=== PATIENT | female | born 1955 | race Caucasian/White ===

== ENCOUNTER 2024-09-30 16:09 | Inpatient (IN) | payer MEDICARE, OTHER, SELFPAY ==
[2024-09-30] VITALS (12 sets, daily range): BP systolic 124–152; BP diastolic 48–97; BMI 30.1; BMI 29.7
--- NOTE | 2024-09-30 11:38 | ED.GENMED ---
History of Present Illness
<Carolina Abdul PA-C - Last Filed: 09/30/24 15:45>
General
Chief Complaint: Skin Problem
Source: patient
Exam Limitations: none
Time Seen by Provider: 09/30/24 10:58
History of Present Illness
History of Present Illness:
68yoF with a history of type 1 diabetes and hypertension presenting for evaluation of a right toe wound. She started to feel sick about 2 weeks ago with cold symptoms. She subsequently developed pain in her right calf last week. Six days ago, she
noticed discoloration to her right third toe. She denies any preceding wounds to the toe. She went to an endocrinology appointment this morning and her toe was noted to be gangrenous and she was sent to the ED for evaluation. Patient denies any
fevers or chills.
Past History
<Carolina Abdul PA-C - Last Filed: 09/30/24 15:45>
Past History
ED Past Medical History: IDDM
Phy Exam
<Carolina Abdul PA-C - Last Filed: 09/30/24 15:45>
General Physical Exam
General Presentation: well appearing and no apparent distress
General age: appears stated age
General Skin: warm and dry
General Habitus: normal
General Mental: alert
ENT Exam
ENT Exam: normocephalic
Neurological Exam
Neurological Exam: alert
Meliton Coma Scale
Eye Opening: Spontaneous
Verbal Response: Oriented
Motor Response: Obeys Commands
GCS Total Score: 15
Skin Exam
Skin Exam: warm/dry and other (R foot: Dry gangrene noted to 3rd toe. Purulence noted to proximal digit and malodor. No crepitus or pain out of proportion. There is edema noted throughout dorsum of the foot as well as 2-3+ pitting edema to R calf.
No palpable pulse in R foot although DP doppler signal present.)
Psychiatric Exam
Psychiatric Exam: normal mood/affect
Sepsis
<Carolina Abdul PA-C - Last Filed: 09/30/24 15:45>
Sepsis Screening
Sepsis Assessment: Sepsis
Sepsis Screen
Sepsis Screen: Sepsis
Date: 09/30/24
Time: 15:37
Course
<Carolina Abdul PA-C - Last Filed: 09/30/24 15:45>
Orders/Labs/Results
Orders:
Orders
09/30/24 11:18
CR Foot - Right Min 3 Views Urgent
Comment:
Reason For Exam: wound
09/30/24 11:20
Cefepime HCl [Maxipime] 2,000 mg IV NOW STA
09/30/24 11:23
Vascular Surgery Consult Urgent
Consulting Provider: Edgar Garcia III
Was physician already notified: Yes
US Periph Art LOWER Ext w LESLIE Urgent
Reason For Exam: R necrotic foot wound
Venous Doppler Lwr Ext Rt [US Periph Venous LOWER Ext RT] Urgent
Comment:
Reason For Exam: R calf swelling
09/30/24 11:43
Complete Blood Count/With Diff Urgent
Comprehensive Metabolic Panel Urgent
Lactate Level [Lactic Acid] Urgent
09/30/24 11:45
Wound Culture [Wound/Abscess/Other Culture] Urgent
SYDNIE Source: Toe
Specimen Description:
Date Specimen was Collected: 09/30/24
Time Specimen was Collected: 11:34
09/30/24 11:54
Vancomycin [Vancocin] 2,000 mg 0.9% Sodium Chloride 500 ml [Nss] 500 ml IV NOW
09/30/24 14:30
Admit/Transfer Patient As Directed
Co-Sign Provider:
Level of Care: Inpatient admission
Assign to:: Medical/Surgical
Physician / Group: Hospitalist
Diagnosis: Gangrene of right foot 3rd digit
Reason for Hospitalization: Gangrene, peripheral arterial disease; requires antibiotics, vascular eval, toe
amputation
Expected length of stay greater than two midnights?: Yes
ELOS- Estimated Length of Stay in days: 7
I certify the patient meets the requirements for IP care: Yes
PRN Pain Medication Management As Directed
May give lesser potent ordered pain med per pt: Yes
preference::
Protocol:: Medication orders for pain may be administered in a
manner that supports deferring to patient preference
when the pt is:
- Requesting an ordered lesser potent pain medication.
Least to most potent pain medications are defined
as: acetaminophen < NSAID < tramadol < opioids
(morphine, oxycodone, hydromorphone).
- Requesting a lesser dose of the same medication IF
ORDERED.
- Requesting a less intrusive route of administration
if both routes are prescribed by the provider (PO <
IV).
09/30/24 14:34
Code Status As Directed
Resuscitation Status: Full Code
Abnormal Lab Results
09/30/24
11:43
WBC 11.2 H 10^3/uL
(4.8-10.8)
RBC 3.57 L 10^6/uL
(4.20-5.40)
Hgb 10.5 L g/dL
(12.0-16.0)
Hct 32.1 L %
(37.0-47.0)
MCHC 32.7 L g/dL
(33.0-37.0)
Abs Immat Gran (auto) 0.1 H 10^3/uL
(0-0.05)
Absolute Neuts (auto) 8.8 H 10^3/uL
(1.4-6.5)
Absolute Monos (auto) 0.8 H 10^3/uL
(0.1-0.6)
Neutrophils % 78.2 H %
(42.2-75.2)
Lymphocytes % 13.2 L %
(20.5-51.1)
Carbon Dioxide 20 L mmol/L
(22-30)
BUN 29 H mg/dl
(7-17)
Creatinine 1.1 H mg/dL
(0.6-1.0)
Glucose 222 H mg/dl
(70-99)
09/30/24 11:43
09/30/24 11:43
Vital Signs
Initial and Last Documented VS:
Initial Vital Signs
Pulse Resp Pulse Ox
102 20 100
09/30/24 10:49 09/30/24 10:49 09/30/24 10:49
Last Documented Vital Signs
Temp Pulse Resp BP Pulse Ox
97.1 F 107 13 143/56 100
09/30/24 11:25 09/30/24 15:02 09/30/24 15:02 09/30/24 15:01 09/30/24 14:30
<Bailey Wilson, DO - Last Filed: 09/30/24 13:31>
Orders/Labs/Results
Orders:
Orders
09/30/24 11:18
CR Foot - Right Min 3 Views Urgent
Comment:
Reason For Exam: wound
09/30/24 11:20
Cefepime HCl [Maxipime] 2,000 mg IV NOW STA
09/30/24 11:23
Vascular Surgery Consult Urgent
Consulting Provider: Edgar Garcia III
Was physician already notified: Yes
US Periph Art LOWER Ext w LESLIE Urgent
Reason For Exam: R necrotic foot wound
Venous Doppler Lwr Ext Rt [US Periph Venous LOWER Ext RT] Urgent
Comment:
Reason For Exam: R calf swelling
09/30/24 11:43
Complete Blood Count/With Diff Urgent
Comprehensive Metabolic Panel Urgent
Lactate Level [Lactic Acid] Urgent
09/30/24 11:45
Wound Culture [Wound/Abscess/Other Culture] Urgent
SYDNIE Source: Toe
Specimen Description:
Date Specimen was Collected: 09/30/24
Time Specimen was Collected: 11:34
09/30/24 11:54
Vancomycin [Vancocin] 2,000 mg 0.9% Sodium Chloride 500 ml [Nss] 500 ml IV NOW
09/30/24 14:30
Admit/Transfer Patient As Directed
Co-Sign Provider:
Level of Care: Inpatient admission
Assign to:: Medical/Surgical
Physician / Group: Hospitalist
Diagnosis: Gangrene of right foot 3rd digit
Reason for Hospitalization: Gangrene, peripheral arterial disease; requires antibiotics, vascular eval, toe
amputation
Expected length of stay greater than two midnights?: Yes
ELOS- Estimated Length of Stay in days: 7
I certify the patient meets the requirements for IP care: Yes
PRN Pain Medication Management As Directed
May give lesser potent ordered pain med per pt: Yes
preference::
Protocol:: Medication orders for pain may be administered in a
manner that supports deferring to patient preference
when the pt is:
- Requesting an ordered lesser potent pain medication.
Least to most potent pain medications are defined
as: acetaminophen < NSAID < tramadol < opioids
(morphine, oxycodone, hydromorphone).
- Requesting a lesser dose of the same medication IF
ORDERED.
- Requesting a less intrusive route of administration
if both routes are prescribed by the provider (PO <
IV).
09/30/24 14:34
Code Status As Directed
Resuscitation Status: Full Code
Abnormal Lab Results
09/30/24
11:43
WBC 11.2 H 10^3/uL
(4.8-10.8)
RBC 3.57 L 10^6/uL
(4.20-5.40)
Hgb 10.5 L g/dL
(12.0-16.0)
Hct 32.1 L %
(37.0-47.0)
MCHC 32.7 L g/dL
(33.0-37.0)
Abs Immat Gran (auto) 0.1 H 10^3/uL
(0-0.05)
Absolute Neuts (auto) 8.8 H 10^3/uL
(1.4-6.5)
Absolute Monos (auto) 0.8 H 10^3/uL
(0.1-0.6)
Neutrophils % 78.2 H %
(42.2-75.2)
Lymphocytes % 13.2 L %
(20.5-51.1)
Carbon Dioxide 20 L mmol/L
(22-30)
BUN 29 H mg/dl
(7-17)
Creatinine 1.1 H mg/dL
(0.6-1.0)
Glucose 222 H mg/dl
(70-99)
09/30/24 11:43
09/30/24 11:43
Vital Signs
Initial and Last Documented VS:
Initial Vital Signs
Pulse Resp Pulse Ox
102 20 100
09/30/24 10:49 09/30/24 10:49 09/30/24 10:49
Last Documented Vital Signs
Temp Pulse Resp BP Pulse Ox
97.1 F 107 13 143/56 100
09/30/24 11:25 09/30/24 15:02 09/30/24 15:02 09/30/24 15:01 09/30/24 14:30
Gabriellelt;Carolina Abdul PA-C - Last Filed: 09/30/24 15:45>
MDM/Problems Addressed
Differential Diagnosis Includes:
68yoF with hx of T1DM sent in by endocrinology for a gangrenous toe. Reports color change x 6 days. Denies f/c. HR 102 in triage. Temp 97.1 and BP stable. She is non-toxic appearing. Third toe is noted to have dry gangrene, purulence proximally, and
malodor. There is edema to the R lower extremity. Doppler DP signal present. Differential diagnosis includes but is not limited to: diabetic foot wound, peripheral arterial disease, cellulitis, NSTI, sepsis
Initial ED plan: Check CBC, CMP, lactate, wound culture, R foot x-rays. Case discussed with vascular surgeon, Dr. Garcia. Will order both arterial and venous duplex of RLE.
<Carolina Abdul PA-C - Last Filed: 09/30/24 15:45>
*Critical Care Note
Total Time (30-74mins, 75-104mins- exclusive of procedures): Not Applicable
<Carolina Abdul PA-C - Last Filed: 09/30/24 15:45>
Update Note
Update Note:
Labs reveal a mild leukocytosis with a white count of 11.2. Lactate within normal limits. Glucose 222. Venous duplex negative for DVT. Arterial duplex shows severely reduced TBI at 0.2 in the right lower extremity. Vascular surgery planning on
arteriogram during this hospitalization. No soft tissue gas or evidence of osteomyelitis seen on x-ray. IV cefepime and vancomycin ordered. Patient admitted for further management.
ED Attending Note
<Carolina Abdul PA-C - Last Filed: 09/30/24 15:45>
-
Portions of this chart may have been created with voice recognition software.� Occasional wrong word or��sound alike� substitutions may have occurred due to the inherent limitations of voice recognition software.
<Bailey Wilson DO - Last Filed: 09/30/24 13:31>
ED Attending Note
Patient seen and examined by attending physician: Yes
I performed the substantive portion of visit, reviewed & personally made and approve the management plan that is documented in note by myself or JOSE EDUARDO.: Yes
I performed a history and physical exam of patient and discussed management with resident, I reviewed resident's note and agree with documented findings and plan of care.: Yes
ED Attending Note:
68-year-old female with history of type 1 diabetes and hypertension presenting for discoloration of right third toe. She noticed the discoloration a few days ago. Denies seeing any wounds at the time. Denies numbness or tingling to her leg.
Denies any vascular issues in the past. Reports that her sugars have been controlled. She went to the bead trimmer prior to arrival, was sent to the ER for further assessment. Does note that she did have a viral illness about 2 weeks ago,
however resolved on its own. Denies fever. Vital signs are significant for mild tachycardia, however resolved without intervention.
On exam, patient with grossly abnormal third right toe. Completely necrotic with purulence and malodor in between the third and fourth digit. Distal sensation and pulses are intact by Doppler. Patient does have some swelling to the right lower
extremity, suspected to be reactive from infection. Concern for gas gangrene. Plan for laboratory analysis and x-ray imaging to evaluate for any signs of gas. Will also obtain venous and arterial ultrasounds to ensure no occlusions. Ultimate
plan for admission and IV antibiotics with likely need for amputation
13:20 -x-ray without gas. Antibiotics ordered. DVT ultrasound negative. Arterial ultrasound shows diminished flow, however no significant occlusion. Again plan for admission with antibiotics and podiatry consultation
Discharge Plan
Departure
Patient Disposition: Admit
Presentation/result/management discussed w/ accepting MD/DO: Hospitalist
Discharge Problem:
Gangrene of toe of right foot
Prescriptions:
No Action
amlodipine 10 MG tablet
10 mg PO DAILY Qty: 30 1RF
insulin aspart U-100 [Novolog FlexPen U-100 Insulin] 300 UNITS/3 ML insulin pen
8 units SC AC Qty: 3 1RF
atorvastatin 80 MG tablet
80 mg PO QPM Qty: 60 0RF
aspirin 81 MG tablet,chewable
81 mg PO DAILY Qty: 30 0RF
ergocalciferol (vitamin D2) 1,250 mcg (50,000 unit) Capsule
1,250 mcg PO HURD
lisinopril 40 mg Tablet
40 mg PO HS
hydrochlorothiazide 12.5 mg Tablet
12.5 mg PO DAILY
insulin glargine [Lantus Solostar U-100 Insulin] 300 UNITS/3 ML insulin pen
6 units SC HS
insulin glargine [Lantus Solostar U-100 Insulin] 300 UNITS/3 ML insulin pen
7 units SC DAILY
Referrals:
Devan Riojas MD [Family Provider] -
Interventions
Interventions:
*Risk Screen - Suicide Last Done: 09/30/24 11:25
*General Assessment Last Done: 09/30/24 11:25
*Neglect/Abuse Screening Last Done: 09/30/24 11:25
*ED COVID-19 Vaccine History Last Done: 09/30/24 11:25
ED-Skin Assessment Last Done: 09/30/24 11:26
Discharge Date and Time
Print Language: [id number]
[2024-09-30] MEDS: MAXIPIME 2000 MG IV (11:44)
[2024-09-30 11:56] LABS: % Basophils 0.2 % (0-2); % Eosinophils 0.4 % (0-6); % Immature Granulocytes 0.5 % (0-0.5); % Lymphocytes 13.2 % (20.5-51.1); % Monocytes 7.5 % (1.7-9.3); % Neutrophils 78.2 % (42.2-75.2); Absolute Eosinophils 0.1 10^3/uL (0-0.7); Absolute Immature Granulocytes 0.1 10^3/uL (0-0.05); Absolute Lymphocytes 1.5 10^3/uL (1.2-3.4); Absolute Monocytes 0.8 10^3/uL (0.1-0.6); Absolute Neutrophils 8.8 10^3/uL (1.4-6.5); Hematocrit 32.1 % (37.0-47.0); Hemoglobin 10.5 g/dL (12.0-16.0); Mean Corp Hgb Conc. 32.7 g/dL (33.0-37.0); Mean Corpuscular Hgb 29.4 pg (27.0-31.0); Mean Corpuscular Volume 89.9 fL (81.0-99.0); Mean Platelet Volume 9.4 fL (7.4-10.4); Nucleated Red Blood Cells % 0 %; Platelet Count 276 10^3/uL (130-400); Red Blood Cell Count 3.57 10^6/uL (4.20-5.40); Red Cell Dist. Width 11.9 % (11.5-14.5); White Blood Cell Count 11.2 10^3/uL (4.8-10.8)
[2024-09-30 12:08] LABS: Lactic Acid 1.2 mmol/L (0.7-2.0)
[2024-09-30 12:16] LABS: ALT (SGPT) 16 U/L (0-35); AST (SGOT) 25 U/L (14-36); Albumin 4.3 g/dl (3.5-5.0); Alkaline Phosphatase 101 U/L (38-126); Blood Urea Nitrogen 29 mg/dl (7-17); Calcium 9.7 mg/dl (8.4-10.2); Carbon Dioxide 20 mmol/L (22-30); Chloride 102 mmol/L (98-107); Estimated Creatinine Clearance 51 ml/min; Glucose 222 mg/dl (70-99); Potassium 3.9 mmol/L (3.5-5.1); Sodium 135 mmol/L (135-145); Total Protein 7.4 g/dl (6.3-8.2); eGFR 55.42
[2024-09-30] MEDS: VANCOCIN 540 MG IV (12:57)
--- NOTE | 2024-09-30 13:21 | CON.VAS ---
Addendum entered and electronically signed by Edgar Garcia III, MD 09/30/24 19:49:
This patient was seen and examined in collaboration with CAMMIE Gallegos. I agree with the history and physical exam as well as the assessment and plan. I have the following additions:
Gangrene of right third toe with associated infection
Abnormal noninvasive lower extremity arterial studies
Diabetes
Recommending lower extremity arteriogram with possible endovascular intervention.
OR 10/03/2024
IV ABX
Podiatry consult
Signed:
Edgar Garcia III, MD
[facility] Vascular Surgery
[phone] (yeka)
Original Note:
Consultation
Consultation Request
Date/Time Consultation Performed: 09/30/24
Requesting Provider: Carolina Abdul PA-C
Performing Provider: WINSTON VazquezC for Edgar Garcia III, MD
Reason for Consultation: Right third digit gangrene
Medical History
-
Chief Complaint: Right third digit gangrene
History of Present Illness:
Is a 68-year-old female with significant past medical history for high blood pressure, diabetes, dyslipidemia and left hemisphere stroke who presents to [facility] with the recommendation of executive associate for dry gangrene of right foot third
digit. Patient reports roughly 2 weeks ago she began with cold-like symptoms including postnasal drip, mild cough, and congestion. Denies accompanying nausea, vomiting, nausea, fever, chills, shortness of breath, and dyspnea on exertion. Over the
past 2 weeks she has had complete resolution of her cold-like symptoms but did notice roughly a week ago discoloration of her right foot third digit and increased right lower extremity swelling and pain at calf. She denies any preceding wounds or
trauma to her right foot. She was seen by her executive associate today for scheduled follow-up when her toe was noted to be gangrenous and executive associate recommended ED evaluation. She denies past medical history of peripheral arterial disease or
intervention by vascular surgeon. She denies claudication or rest pain. Denies smoking history.
Right foot
Right foot
Past Medical History
Past Medical History: CVA, HTN, IDDM and Other (Dyslipidemia)
Social History
Tobacco: Non-Smoker
Alcohol: Occasional
Drug: None
Allergies / Home Medications
Allergy/AdvReac Type Severity Reaction Status Date / Time
No Known Allergies Allergy Unverified 09/30/24 10:52
�Medication �Instructions �Recorded �Confirmed �Type
amlodipine 10 mg tablet 10 mg PO DAILY ##30 07/02/18 09/30/24 Rx
insulin aspart U-100 100 unit/mL 8 units SC AC ##3 07/02/18 09/30/24 Rx
(3 mL) subcutaneous pen (Novolog
FlexPen U-100 Insulin aspart)
aspirin 81 mg chewable tablet 81 mg PO DAILY ##30 07/06/18 09/30/24 Rx
atorvastatin 80 mg tablet 80 mg PO QPM ##60 07/06/18 09/30/24 Rx
ergocalciferol (vitamin D2) 1,250 1,250 mcg PO HURD 09/30/24 09/30/24 History
mcg (50,000 unit) capsule
hydrochlorothiazide 12.5 mg tablet 12.5 mg PO DAILY 09/30/24 09/30/24 History
insulin glargine 100 unit/mL (3 6 units SC HS 09/30/24 09/30/24 History
mL) subcutaneous pen (Lantus
Solostar U-100 Insulin)
insulin glargine 100 unit/mL (3 7 units SC DAILY 09/30/24 09/30/24 History
mL) subcutaneous pen (Lantus
Solostar U-100 Insulin)
lisinopril 40 mg tablet 40 mg PO HS 09/30/24 09/30/24 History
Review of Systems
-
History Source: Patient
Constitutional: Reports Fatigue; Denies Fever
EENT: Reports Runny Nose (Now resolved)
Respiratory: Reports Cough (Now resolved)
Cardiac: Reports No Symptoms
Vascular: Denies Leg Pain / Claudication
Abdomen/GI: Reports No Symptoms
: Reports No Symptoms
Musculoskeletal: Reports Edema (Trace right lower extremity edema)
Skin: Reports Other (Right third digit discoloration)
Neurological: Reports No Symptoms
Endocrine: Reports No Symptoms
Physical Exam
Vital Signs
Temp Pulse Resp BP Pulse Ox
97.1 F 64 18 146/48 96
09/30/24 11:25 09/30/24 11:25 09/30/24 11:25 09/30/24 11:25 09/30/24 11:26
Lab Results
09/30/24 11:43
09/30/24 11:43
Physical Exam
General: No Apparent Distress and Comfortable
HEENT: Normocephalic, Anicteric and Atraumatic
Respiratory: Non Labored Respirations
Cardiac: Negative JVD
GI: Soft, Non Tender and Non Distended
Musculoskeletal: Edema (Trace edema right lower extremity)
Skin: Other (Right foot third digit with gangrene, white, malodorous, purulent drainage noted, see HPI for photo)
Neuro: AO x 3
Pulses: Left Femoral: +2, Right Femoral: +1 and Left Dorsalis Pedis: +2 (Nonpalpable right DP/PT)
Assessment / Plan
-
Assessment: 68-year-old female with wet gangrene of right foot third digit, per patient developed over the past week, suspect peripheral arterial disease given diminished pulses
Plan:
Arterial ultrasound and LESLIE/TBI pending, however given physical exam of nonpalpable distal pulses suspect level peripheral arterial disease contributing to development, patient will likely require angiogram this admission
Podiatry consultation
Agree with initiation of IV antibiotics
--- NOTE | 2024-09-30 14:03 | W.PN.UPDATE ---
Update Note
Progress Note Update
I personally performed a history and physical exam of the patient and discussed management with the resident. I reviewed the resident's note and agree with the documented findings and plan of care HPI/CC.
Gen: NAD, AAOx3.
Eyes: EOMI, PERRLA, no scleral icterus.
Neck: supple.
CV: RRR, +S1/S2, no m/r/g.
Resp: CTAB, no rales, wheezes, or rhonchi.
Abd: +BS, soft, NT, ND
Skin: No rashes. R third toe necrotic
Neuro: CN 2-12 intact, non-focal.
Psych: Normal mood and affect.
Lab Results
09/30/24
11:43
WBC 11.2 H
RBC 3.57 L
Hgb 10.5 L
Hct 32.1 L
MCV 89.9
MCH 29.4
MCHC 32.7 L
RDW 11.9
Plt Count 276
MPV 9.4
Abs Immat Gran (auto) 0.1 H
Absolute Neuts (auto) 8.8 H
Absolute Lymphs (auto) 1.5
Absolute Monos (auto) 0.8 H
Absolute Eos (auto) 0.1
Absolute Basos (auto) 0.0
Immature Gran % 0.5
Neutrophils % 78.2 H
Lymphocytes % 13.2 L
Monocytes % 7.5
Eosinophils % 0.4
Basophils % 0.2
Nucleated RBC % 0
Sodium 135
Potassium 3.9
Chloride 102
Carbon Dioxide 20 L
BUN 29 H
Creatinine 1.1 H
Estimated Creat Clear 51
eGFR 55.42
Glucose 222 H
Lactic Acid 1.2
Calcium 9.7
Total Bilirubin 1.0
AST 25
ALT 16
Alkaline Phosphatase 101
Total Protein 7.4
Albumin 4.3
B/L LE art U/S:
RIGHT LOWER EXTREMITY: LESLIE unmeasurable due to noncompressible arteries. TBI severely reduced at 0.20. Arterial duplex examination reveals multiphasic waveforms from the common femoral artery through the popliteal artery with no focal velocity
elevations to suggest significant stenosis. Monophasic continuous Doppler waveforms are demonstrated in the posterior tibial artery and dorsalis pedis artery. Tibial artery and small vessel occlusive disease suspected.
LEFT LOWER EXTREMITY: LESLIE unmeasurable due to noncompressible arteries. TBI within normal limits at 0.81. Arterial duplex examination reveals multiphasic waveforms from the common femoral artery through the popliteal artery with no focal velocity
elevations to suggest significant stenosis. Multiphasic continuous Doppler waveforms are demonstrated in the posterior tibial artery and dorsalis pedis artery.
B/L LE venous U/S:
1. No sonographic evidence for right lower extremity deep venous thrombosis.
2. Severe diffuse subcutaneous edema throughout the right lower leg.
Sepsis due to gangrenous R 3rd toe:
-due to PAD
-a/e/b leukocytosis, tachycardia, tachypnea, source right third toe gangrene
-cont Vanco/Cefepime
-IVFs
-vascular to perform arteriogram
-c/s podiatry and ID
-will need amputation of R 3rd toe
-cont ASA/statin
DM1:
-cont home insulin basal/bolus regimen
-check a1c
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
Other problems:
Essential hypertension: cont Norvasc/ACEi, hold HCTZ
Obesity due to excess calories
FULL/Lovenox
--- NOTE | 2024-09-30 14:30 | HPS.HSE ---
Family Physician
-
Family Physician: Devan Riojas MD
Chief Complaint
-
black toe
History of Present Illness
68-year-old female with past medical history of diabetes type 1, hypertension, hyperlipidemia, history of CVA (2018) who presents to ED for discoloration of toe. She initially presented today to her warehouse associate, who sent her to the emergency
room. About 1 week ago, she noticed swelling of her right calf, followed by development of a black migdalia on her right third toe on 09/24/24. Over the past week she has noticed the black migdalia getting worse, it now covers her entire toe. She denies
inciting injury. She denies fevers, chills. She denies pain at rest, but reports pain in her toe while walking. Otherwise denies exertional pain in extremities.
She reports recent cold that resolved about a week ago and has some residual nonproductive cough and runny nose, which are improving. Otherwise, she was in her usual state of health. Review of systems negative: Denies lightheadedness, dizziness,
chest pain/pressure, shortness of breath, abdominal pain, nausea, vomiting, diarrhea, constipation. Last BM yesterday; no black or bloody stools. No difficulty/pain/coughing with swallowing. At baseline, she ambulates without difficulty and
without assistive devices.
Medical History
Past Medical History
Past Medical History: Reports CVA (2018), HTN, Hypercholesterolemia and IDDM; Denies Asthma or CAD
Past Surgical History: Reports None
Social History
Tobacco: Non-smoker
Alcohol: Occasional (1-2x per month)
Drug: None
Living: Alone
Employment: Retired ([employer])
Family History
Family History: CAD, Cancer (pancreatic cancer (father)) and Diabetes
Allergies / Home Medications
Allergies reflects when Allergies were last updated in [employer].
Home Medications with original date entered in [employer]
Allergy/Medication List:
Allergies
Allergy/AdvReac Type Severity Reaction Status Date / Time
No Known Allergies Allergy Unverified 09/30/24 10:52
Home Medications
amlodipine 10 mg tablet 10 mg PO DAILY ##30 07/02/18
insulin aspart U-100 100 unit/mL (3 mL) subcutaneous pen (Novolog FlexPen U-100 Insulin aspart) 8 units SC AC ##3 07/02/18
aspirin 81 mg chewable tablet 81 mg PO DAILY ##30 07/06/18
atorvastatin 80 mg tablet 80 mg PO QPM ##60 07/06/18
ergocalciferol (vitamin D2) 1,250 mcg (50,000 unit) capsule 1,250 mcg PO HURD 09/30/24
hydrochlorothiazide 12.5 mg tablet 12.5 mg PO DAILY 09/30/24
insulin glargine 100 unit/mL (3 mL) subcutaneous pen (Lantus Solostar U-100 Insulin) 6 units SC HS 09/30/24
insulin glargine 100 unit/mL (3 mL) subcutaneous pen (Lantus Solostar U-100 Insulin) 7 units SC DAILY 09/30/24
lisinopril 40 mg tablet 40 mg PO HS 09/30/24
Review of Systems
-
History Source: Patient
A 12 point ROS was completed and negative except as noted: Yes
Constitutional: Reports No Symptoms; Denies Fever or Chills
EENT: Reports Runny Nose
Respiratory: Reports No Symptoms; Denies Cough, Hemoptysis or Trouble Breathing
Cardiac: Reports No Symptoms; Denies Chest Pain, Diaphoresis or Syncope
Abdomen/GI: Reports No Symptoms; Denies Abdominal Pain, Nausea, Vomiting, Diarrhea, Constipated, Bloody Stools or Black Stools
: Reports No Symptoms; Denies Dysuria, Frequency or Difficulty Voiding
Musculoskeletal: Reports See HPI
Skin: Reports See HPI
Neurological: Reports No Symptoms; Denies Dizzy or Weakness
Endocrine: Reports No Symptoms
Hematologic/Lymphatic: Reports No Symptoms
Psych: Reports No Symptoms
Physical Exam
Vital Signs
Vital Signs
Temp Pulse Resp BP Pulse Ox
97.1 F 109 24 146/48 32
09/30/24 11:25 09/30/24 14:00 09/30/24 14:00 09/30/24 11:25 09/30/24 13:45
Physical Exam
General: Well Developed, No Apparent Distress, Comfortable and Obese; No Pain, Fever, Chills or Sweats
HEENT: NormoCephalic, Anicteric and Atraumatic
Respiratory: Clear and Non Labored Respirations; No Wheezes, Rales, Rhonchi or Crackles
Cardiac: S1/S2, Regular Rhythm and Tachycardia
GI: Soft, Non Tender, Normal Bowel Sounds and Other (obese abdomen)
Musculoskeletal: Edema, Right Lower Extremity (+3 pitting edema)
Skin: Warm, Dry and Other (right foot 3rd toe black and gangrenous, purulent malodorous drainage)
Neuro: Awake, Alert, Oriented and Nonfocal/grossly intact
Psych: Intact Judgment/Insight and Anxious
Laboratory Results
-
09/30/24 11:43
09/30/24 11:43
Laboratory Results
Lactic Acid 1.2 mmol/L (0.7-2.0) 09/30/24 11:43
Total Bilirubin 1.0 mg/dl (0.2-1.3) 09/30/24 11:43
AST 25 U/L (14-36) 09/30/24 11:43
ALT 16 U/L (0-35) 09/30/24 11:43
Alkaline Phosphatase 101 U/L (38-126) 09/30/24 11:43
Data Reviewed
-
Diagnostic Radiology: Image Personally Visualized and interpreted, Report Reviewed by me and Discussed with Physician
Ultrasound: Report Reviewed by me
Lab Data: Labs Reviewed by me
Old Records: Reviewed
Impression/Plan
-
68yo F with PMH diabetes type I, htn, hld who presents to ED for RLE swelling and discoloration of toe, which progressed over past week. She was sent to ED by her warehouse associate. On presentation to ED, her right 3rd toe was found to be
gangrenous with purulent drainage. Wound culture obtained, and started on vancomycin and cefepime. Peripheral ultrasound notable for severely reduced TBI of RLE, negative for DVTs. Foot xray with no evidence of osteomyelitis.
Diabetic foot infection
Gangrene of right 3rd toe
- Admission labs notable for leukocytosis, polymicrobial gram stain from wound. Lactic acid wnl.
- Wound culture pending.
- Check MRI to evaluate for osteomyelitis.
- Continue IV cefepime, vanc.
- Follow temperature curve and trend wbc.
- ID and podiatry consulted.
Peripheral arterial disease
- New diagnosis this admission given diminished pulses, severely reduced TBI of RLE.
- Vascular surgery consulted, appreciate recs.
- Will be for arteriogram this admission, anticipate 10/03.
Diabetes, type I
- BS 222 on admission, check A1C.
- Continue home insulin regimen at this time.
- Diabetes management consult placed.
Hypertension- Continue home amlodipine 10mg qD, hctz 12.5 mg qD
Hyperlipidemia- Continue home atorvastatin 80mg qPM, ASA 81mg qD.
History of CVA (2018)
Obesity (BMI 30.1) due to excess calorie intake
Anemia- Unknown hgb baseline. Will check iron studies. No evidence of acute/chronic bleeding.
Elevated Cr- Unknown baseline. IVF, monitor.
Stress due to hospitalization- Denies history of anxiety. Mood otherwise stable. Ativan 0.5mg q8h prn.
Code status: Full
Patient has advance directive at home; says krunal Azevedo will bring in. If she were to require medical decision maker, it would be krunal Azevedo.
VTE ppx: Lovenox
Diet: Diabetic, low chol
Dispo planning: anticipate discharge home vs SNF pending clinical course
--- NOTE | 2024-09-30 15:51 | CON.ID ---
Consultation
-
Date/Time Consultation Requested: 09/30/2024 1519
Date/Time Consultation Performed: 09/30/2024 1530
Requesting Provider: Dr. Mancilla
Performing Provider: Dr. Callahan
Reason for Consultation: Right third toe gangrene
Chief Complaint / Past History
History of Present Illness
Ledy Ferrer is a 68-year-old female with a significant past medical history of type 1 diabetes being evaluated at the request of Dr. Mancilla in regards to gangrene of the right third toe. History is obtained from chart review, along with
patient interview.
The patient reports that she was in her usual state of health until approximately 2 weeks ago when she developed a upper respiratory tract infection consisting of cough and rhinorrhea. This seemed to resolve, but approximately 1 week ago she began
to develop some left leg swelling. 6 days ago she noted some darkening of her right third toe and 2 days later the area appeared more black. She reached out to her commercial parts professional, and was seen today in the office, at which time she was sent
directly to the emergency room for further evaluation.
At this time she denies any pain in the area, but she does admit to some neuropathy. She denies any fevers or chills. She denies any groin swelling or pain. She denies any trauma to the toe. She has no history of pets. She denies any travel
history.
Past History
Additional Past Medical History:
DM type I
HTN
Past Surgical History: None
Allergy History:
No Known Allergies Allergy (Unverified 09/30/24 10:52)
Medications Reviewed: Yes
Current Antibiotics:
Vancomycin
Cefepime
Social History
Tobacco: Non-Smoker
Alcohol: Occasional
Drug: None
Employment: Retired
Family History
Family History: Not Pertinent
Review of Systems
Vital Signs
Temp Pulse Resp BP Pulse Ox
97.1 F 107 13 143/56 100
09/30/24 11:25 09/30/24 15:02 09/30/24 15:02 09/30/24 15:01 09/30/24 14:30
Physical Exam
Physical Exam
Constitutional: No Acute Distress, Comfortable and Non-toxic
Eyes: No Conjunctival Hemorrhage and Sclera Anicteric
Cardiovascular: Regular Rate and S1/S2; Negative S3/S4
Pulmonary: Clear; Negative Wheezes, Rales or Rhonchi
Gastrointestinal: Soft, Non Tender and Non Distended
Extremities: Edema (Right lower extremity) and Erythema (Mild; right lower extremity)
Wound: Other (Right third toe black, wrinkled and with significant malodor.)
Neurological: Awake and Alert
Psychological: Calm
Lab / Diagnostic Study Results
09/30/24 11:43
09/30/24 11:43
Abs Immat Gran (auto) 0.1 10^3/uL (0-0.05) H 09/30/24 11:43
Absolute Neuts (auto) 8.8 10^3/uL (1.4-6.5) H 09/30/24 11:43
Absolute Lymphs (auto) 1.5 10^3/uL (1.2-3.4) 09/30/24 11:43
Absolute Monos (auto) 0.8 10^3/uL (0.1-0.6) H 09/30/24 11:43
Absolute Basos (auto) 0.0 10^3/uL (0-0.2) 09/30/24 11:43
Immature Gran % 0.5 % (0-0.5) 09/30/24 11:43
Neutrophils % 78.2 % (42.2-75.2) H 09/30/24 11:43
Lymphocytes % 13.2 % (20.5-51.1) L 09/30/24 11:43
Monocytes % 7.5 % (1.7-9.3) 03/18/25 11:43
Eosinophils % 0.4 % (0-6) 09/30/24 11:43
Basophils % 0.2 % (0-2) 09/30/24 11:43
Lactic Acid 1.2 mmol/L (0.7-2.0) 09/30/24 11:43
Microbiology Results
Micro:
09/30/24 11:45 Wound Culture - Pending
Toe Gram Stain - Preliminary
Imaging:
09/30/2024 X-ray right foot: No convincing radiographic evidence for active osteomyelitis. No acute fracture or dislocation. There is scattered moderate osteoarthritic changes of the anterior phalangeal and first metatarsal joints. No erosions are
evident. Please see full dictation for additional detail.
09/30/2024 arterial ultrasound lower extremity with LESLIE: In the right lower extremity the ABIs are unmeasurable due to noncompressible arteries. TBI is severely reduced at 0.20. Tibial artery and small vessel occlusive disease is suspected. Please
see full dictation for additional detail.
Assessment / Plan
Right third toe gangrene
Leukocytosis
DM type I
PAD
Recommendations:
A culture of the toe area has been obtained and is pending.
Continue empiric vancomycin.
Discontinue further cefepime and begin Zosyn 3.375 g IV every 6 hours
Await further workup by Vascular surgery.
Monitor white count temperature curve.
Follow Vanco levels to prevent nephrotoxicity.
Further recommendations as additional data is returned.
--- NOTE | 2024-09-30 17:58 | CON.SURG ---
Surgical Consultation
-
Chief Complaint
-
Gangrenous toe
History of Present Illness
68-year-old female with past medical history of diabetes type 1, hypertension, hyperlipidemia, history of CVA (2018) who presents to ED for discoloration of right 3rd toe. She initially presented today to her package checker, who sent her to the
emergency room. About 1 week ago, she noticed swelling of her right calf, followed by development of a black migdalia on her right third toe on 09/24/24. Over the past week she has noticed the black migdalia getting worse, it now covers her entire toe.
She denies inciting injury. She denies fevers, chills. She denies pain at rest, but reports pain in her toe while walking. Otherwise denies exertional pain in extremities. She has no history of previous foot wounds and does not have a escrow closer.
She reports her most HbA1c is in the 7s.
Medical History
Past Medical History
Past Medical History: Reports CVA (2018), HTN, Hypercholesterolemia and IDDM; Denies Asthma or CAD
Past Surgical History: Reports None
Social History
Tobacco: Non-smoker
Alcohol: Occasional (1-2x per month)
Drug: None
Living: Alone
Employment: Retired ([employer])
Family History
Family History: CAD, Cancer (pancreatic cancer (father)) and Diabetes
Allergies / Home Medications
Allergies reflects when Allergies were last updated in [employer].
Home Medications with original date entered in [employer]
Allergy/Medication List:
Allergies
Allergy/AdvReac Type Severity Reaction Status Date / Time
No Known Allergies Allergy Unverified 09/30/24 10:52
Home Medications
amlodipine 10 mg tablet 10 mg PO DAILY ##30 07/02/18
insulin aspart U-100 100 unit/mL (3 mL) subcutaneous pen (Novolog FlexPen U-100 Insulin aspart) 8 units SC AC ##3 07/02/18
aspirin 81 mg chewable tablet 81 mg PO DAILY ##30 07/06/18
atorvastatin 80 mg tablet 80 mg PO QPM ##60 07/06/18
ergocalciferol (vitamin D2) 1,250 mcg (50,000 unit) capsule 1,250 mcg PO HURD 09/30/24
hydrochlorothiazide 12.5 mg tablet 12.5 mg PO DAILY 09/30/24
insulin glargine 100 unit/mL (3 mL) subcutaneous pen (Lantus Solostar U-100 Insulin) 6 units SC HS 09/30/24
insulin glargine 100 unit/mL (3 mL) subcutaneous pen (Lantus Solostar U-100 Insulin) 7 units SC DAILY 09/30/24
lisinopril 40 mg tablet 40 mg PO HS 09/30/24
Review of Systems
-
History Source: Patient
A 12 point ROS was completed and negative except as noted: Yes
Constitutional: Reports No Symptoms; Denies Fever or Chills
EENT: Reports Runny Nose
Respiratory: Reports No Symptoms; Denies Cough, Hemoptysis or Trouble Breathing
Cardiac: Reports No Symptoms; Denies Chest Pain, Diaphoresis or Syncope
Abdomen/GI: Reports No Symptoms; Denies Abdominal Pain, Nausea, Vomiting, Diarrhea, Constipated, Bloody Stools or Black Stools
: Reports No Symptoms; Denies Dysuria, Frequency or Difficulty Voiding
Musculoskeletal: Reports See HPI
Skin: Reports See HPI
Neurological: Reports No Symptoms; Denies Dizzy or Weakness
Endocrine: Reports No Symptoms
Hematologic/Lymphatic: Reports No Symptoms
Psych: Reports No Symptoms
Physical Exam
Vital Signs
Temp Pulse Resp BP Pulse Ox
97.1 F 109 24 146/48 32
09/30/24 11:25 09/30/24 14:00 09/30/24 14:00 09/30/24 11:25 09/30/24 13:45
Physical Exam
General: Well Developed, No Apparent Distress, Comfortable and Obese; No Pain, Fever, Chills or Sweats
HEENT: NormoCephalic, Anicteric and Atraumatic
Respiratory: Clear and Non Labored Respirations; No Wheezes, Rales, Rhonchi or Crackles
Cardiac: S1/S2, Regular Rhythm and Tachycardia
GI: Soft, Non Tender, Normal Bowel Sounds and Other (obese abdomen)
Musculoskeletal: Edema, Right Lower Extremity (+3 pitting edema)
Skin: Warm, Dry and Other (right foot 3rd toe black and gangrenous, purulent malodorous drainage)
Neuro: Awake, Alert, Oriented and Nonfocal/grossly intact
Psych: Intact Judgment/Insight and Anxious
Right Lower Extremity Examination
-DP/PT pulses nonpalpable, capillary refill sluggish > 3 seconds
-Right 3rd toe entirely gangrenous with positive malodor and proximally extending erythema
-No fluctuance, purulence, or crepitus
-Skin breakdown to medial aspect of right 4th toe and lateral aspect of right 2nd toe
Laboratory Results
-
09/30/24 11:43
09/30/24 11:43
Laboratory Results
Lactic Acid 1.2 mmol/L (0.7-2.0) 09/30/24 11:43
Total Bilirubin 1.0 mg/dl (0.2-1.3) 09/30/24 11:43
AST 25 U/L (14-36) 09/30/24 11:43
ALT 16 U/L (0-35) 09/30/24 11:43
Alkaline Phosphatase 101 U/L (38-126) 09/30/24 11:43
Data Reviewed
-
Diagnostic Radiology: Image Personally Visualized and interpreted, Report Reviewed by me and Discussed with Physician
Ultrasound: Report Reviewed by me
Lab Data: Labs Reviewed by me
Old Records: Reviewed
Impression/Plan
68yo F with PMH diabetes type I, htn, hld who presents to for right 3rd toe gangrene in the setting of poor vascular exam. Vascular surgery planning for intervention on Tuesday 10/03. Patient will require amputation, but amputation level will be
determined by vascular surgery findings. Will continue to monitor for signs of worsening infection requiring emergent surgical intervention
-Patient seen and evaluated at bedside
-Nursing please apply betadine daily to right 2nd,3rd,4th toes
-Heel WBAT to RLE
-Continue antibiotics per ID recs
-Please obtain right foot MRI
-Will await vascular surgery intervention and findings to determine optimal level of amputation
-Will continue to monitor for signs of worsening infection, and if source control is requiring
-Please obtain updated HbA1c, ESR/CRP
[2024-09-30 18:22] LABS: Glucose - Point of Care 263 mg/dl (70-99)
[2024-09-30] MEDS: ZOSYN 50 IV ×2 (18:36→22:29)
[2024-09-30] MEDS: LOVENOX 40 MG SC (18:37)
[2024-09-30] MEDS: NSS 1000 IV (18:37)
[2024-09-30] MEDS: LIPITOR 80 MG PO (18:37)
[2024-09-30] MEDS: NOVOLOG FLEXPEN 6 UNITS SC (18:43)
--- NOTE | 2024-09-30 19:00 | PHA.VAN.IN ---
Assessment
- Assessment
Renal Function: Unknown baseline
Concomitant Antimicrobials: piperacillin/tazobactam
Plan
- Plan
Initial / Loading Dose: vanc 2000mg administered @ 1257
Maintenance Regimen: dosing by level
Monitoring: random level 10/01 599
Pharmacokinetics Vancomycin I
- -
Patient Age: 68
Patient Sex: Female
Vancomycin Day #: 1
Indication: Diabetic Foot
Requesting Provider: Dr. Mancilla
Pertinent Antimicrobial Allergies:
no pertinent antimicrobial allergies
Height / Weight:
Height 5 ft 4 in
Actual Weight 78.471 kg
- Vital Signs / Lab Results
Temp Pulse Resp BP Pulse Ox
98.9 F 104 19 151/70 96
09/30/24 18:04 09/30/24 18:04 09/30/24 18:04 09/30/24 18:04 09/30/24 18:04
Lab Results - Hematology
09/30/24
11:43
WBC 11.2 H
Lab Results - Chemistry
09/30/24
11:43
BUN 29 H
Creatinine 1.1 H
Estimated Creat Clear 51
Albumin 4.3
09/30/24
11:43
Lactic Acid 1.2
Microbiology Results
09/30/24 11:45 Gram Stain - Preliminary
Toe
--- NOTE | 2024-09-30 19:13 | PTCARENOTE ---
pt admitted from ed. pt has black right 3rd toe with odoriferous discharge. pt states right foot is sore. pulses by doppler. ivf running as ordered. pt now taken to mri. pt has wearable glucose monitor in place.
[2024-09-30 21:38] LABS: Glucose - Point of Care 124 mg/dl (70-99)
[2024-09-30] MEDS: TYLENOL 650 MG PO (22:21)
[2024-09-30] MEDS: ZESTRIL 40 MG PO (22:22)
[2024-09-30] MEDS: LANTUS 0.06 UNITS SC (22:22)
[2024-10-01] MEDS: ZOSYN 50 IV ×4 (04:43→21:53)
[2024-10-01] MEDS: NSS 1000 IV (04:50)
--- NOTE | 2024-10-01 05:58 | DOWNTIME ---
There was a [employer] Performance Improvement Specialist Downtime on 10/01/2024 from 0100 to 10/02/2023 at 0420 . Downtime documentation of patient's care, including medication administrations, has been reconciled in the electronic record per guidelines. Refer to the
patient's paper chart under the miscellaneous tab to see printed paper medication records and downtime forms.
[2024-10-01 07:03] LABS: Glucose - Point of Care 277 mg/dl (70-99)
[2024-10-01 07:30] VITALS: BP 127/54
[2024-10-01 07:38] LABS: Hematocrit 30.1 % (37.0-47.0); Mean Corp Hgb Conc. 33.2 g/dL (33.0-37.0); Mean Corpuscular Hgb 29.2 pg (27.0-31.0); Mean Platelet Volume 9.4 fL (7.4-10.4); Platelet Count 306 10^3/uL (130-400); Red Blood Cell Count 3.42 10^6/uL (4.20-5.40); White Blood Cell Count 9.8 10^3/uL (4.8-10.8)
[2024-10-01 07:42] LABS: Vancomycin Random 12.5 ug/ml
[2024-10-01 08:07] LABS: Blood Urea Nitrogen 24 mg/dl (7-17); Calcium 9.1 mg/dl (8.4-10.2); Carbon Dioxide 21 mmol/L (22-30); Chloride 103 mmol/L (98-107); Estimated Creatinine Clearance 47 ml/min; Glucose 291 mg/dl (70-99); Iron 48 ug/dl (37-170); Magnesium 1.8 mg/dl (1.6-2.3); Potassium 4.8 mmol/L (3.5-5.1); Sodium 135 mmol/L (135-145); eGFR 49.92
--- NOTE | 2024-10-01 08:14 | PHA.VAN.FU ---
Vancomycin Assessment / Plan
- Assessment
Renal Function: Stable
WBC's are: WNL
In the past 24 hrs, patient has been: Afebrile
Concomitant Antimicrobials: piperacillin/tazobactam
- Assessment - Therapeutic Drug Monitoring
Random Level: 12.5 - drawn ~18H after 2g loading dose
- Dosing Plan
Dosing by Level: Re-dose today (Vanc 1250mg)
- Monitoring Plan
Random Level: 10/02 06
- Follow Up
Pharmacy will continue to follow.
Vancomycin Follow UP
- -
Patient Age: 68
Patient Sex: Female
Vancomycin Day #: 2
Indication: Diabetic Foot
Requesting Provider: Dr. Mancilla (resident) / [place]
Pertinent Antimicrobial Allergies:
no pertinent antimicrobial allergies
Height / Weight:
Height 5 ft 4 in
Actual Weight 78.471 kg
Pertinent Past Medical History: DM
- Vital Signs / Lab Results
Temp Pulse Resp BP Pulse Ox
98.8 F 85 18 127/54 98
10/01/24 07:30 10/01/24 07:30 10/01/24 07:30 10/01/24 07:30 10/01/24 07:30
Lab Results - Hematology
09/30/24 10/01/24
11:43 07:11
WBC 11.2 H 9.8
Lab Results - Chemistry
09/30/24 10/01/24
11:43 07:11
BUN 29 H 24 H
Creatinine 1.1 H 1.2 H
Estimated Creat Clear 51 47
Albumin 4.3
09/30/24
11:43
Lactic Acid 1.2
Microbiology Results
09/30/24 11:45 Gram Stain - Preliminary
Toe
Therapeutic Drug Monitoring
Random Vancomycin 12.5 ug/ml 10/01/24 07:11
--- NOTE | 2024-10-01 08:22 | PN.DE.MGMTRT ---
Insulin Management
- -
10/01/2024 Diabetes management Consult
Patient admitted 09/30 with R toe wound. PMH type 1 diabetes, HTN, CVA. Prior to admission was taking 8 units novolog AC with lantus 7 units in AM and 6 units @ hs. A1C 7.3% cr 1.2, eGFR 49.92.
Patient is awake alert and oriented, oob in chair, able to discuss diabetes care. States she has had diabetes since age 32 (originally had gestational diabetes then type 1). Sees Dr. Tyler, [facility]. Uses Mimi 3 CGM.
Currently ordered home regimen 8 units novolog AC with BID lantus 7 units in AM and 6 units @ HS.
Patient received 6 units lantus @ hs, fasting glucose 277. Will increase hs lantus to 10 units. Will continue 7 units lantus in AM with 8 units novolog with low corrective insulin.
Discussed with nurse
Will follow.
Diabetes History
- -
Type of Diabetes: 1
Pre-Admission Diabetes Regimen
09/30/24 10/01/24
11:43 07:11
Creatinine 1.1 H 1.2 H
Insulin Pump Settings
IP Diabetes Regimen
09/30/24 09/30/24 09/30/24
11:43 18:10 21:27
Glucose 222 H
POC Glucose 263 H 124 H
10/01/24 10/01/24
06:51 07:11
Glucose 291 H
POC Glucose 277 H
Patient Education
[2024-10-01 08:23] LABS: Percent Saturation 20 % (20-50); Total Iron Binding Capacity 235 ug/dl (265-497)
--- NOTE | 2024-10-01 08:24 | W.PN.UPDATE ---
Update Note
Progress Note Update
I saw and evaluated the patient. I reviewed the resident�s note and agree with findings and plan as documented in the resident�s note.
When I asked the patient she had no new complaints to me but she did report to nursing that she is having right foot pain.
Gen: NAD, AAOx3.
Eyes: EOMI, PERRLA, no scleral icterus.
Neck: supple.
CV: Remains RRR, +S1/S2, no m/r/g.
Resp: Remains CTAB, no rales, wheezes, or rhonchi.
Abd: +BS, soft, NT, ND
Skin: No rashes. R third toe necrotic, foul-smelling. Necrosis extends to the soft tissue over the first MTP joint.
Neuro: CN 2-12 intact, non-focal.
Psych: Normal mood and affect.
B/L LE art U/S:
RIGHT LOWER EXTREMITY: LESLIE unmeasurable due to noncompressible arteries. TBI severely reduced at 0.20. Arterial duplex examination reveals multiphasic waveforms from the common femoral artery through the popliteal artery with no focal velocity
elevations to suggest significant stenosis. Monophasic continuous Doppler waveforms are demonstrated in the posterior tibial artery and dorsalis pedis artery. Tibial artery and small vessel occlusive disease suspected.
LEFT LOWER EXTREMITY: LESLIE unmeasurable due to noncompressible arteries. TBI within normal limits at 0.81. Arterial duplex examination reveals multiphasic waveforms from the common femoral artery through the popliteal artery with no focal velocity
elevations to suggest significant stenosis. Multiphasic continuous Doppler waveforms are demonstrated in the posterior tibial artery and dorsalis pedis artery.
B/L LE venous U/S:
1. No sonographic evidence for right lower extremity deep venous thrombosis.
2. Severe diffuse subcutaneous edema throughout the right lower leg.
MRI R foot: Abnormal third digit proximal, middle, and distal phalanx, as described, suspicious for osteonecrosis. Superimposed occult nondisplaced fractures involving the third proximal phalanx head and proximal diaphysis. Slightly impacted
intra-articular fracture involving the head of the first proximal phalanx. Subtle nondisplaced occult fracture involving the base of the second proximal phalanx. No focal soft tissue collection or abscess.
Sepsis due to gangrenous R 3rd toe with osteomyelitis:
-due to PAD
-a/e/b leukocytosis, tachycardia, tachypnea, source right third toe gangrene
-cont Vanco/Zosyn as per ID
-change IVFs to 1/2NS with NaHCO3 for non-AG met acidosis
-vascular to perform arteriogram
-will need amputation of at least R 3rd toe, podiatry following
-cont ASA/statin
-Ultram for moderate pain, IV Dilaudid for severe pain
DM1:
-a1c 7.3%
-cont home insulin basal/bolus regimen
-change SSI to mod res
-c/s diabetes FLAGSETTER
Other problems:
CKD3a (suspect baseline Cr 1.1-1.2 due to diabetic nephropathy)
Essential hypertension: cont Norvasc/ACEi, holding HCTZ
Obesity due to excess calories
FULL/Lovenox
Total time spent on today's encounter was 50 minutes which included time spent in counseling the patient/family regarding diagnosis and treatment plan as listed above, goals of care, and symptom management. Case was discussed with nursing staff,
specialists, and care coordinators/case management. All labs and imaging personally reviewed by me. Remainder the time spent in detailed review of previous records, lab data, imaging, and other medical provider documentation.
--- NOTE | 2024-10-01 08:31 | W.PN.HOSP.TC ---
Today's Communication/Plan
-
Continue antibiotics per ID, wound culture pending. MRI report pending. Adjust insulin regimen for hyperglycemia,
Assessment / Plan
Assessment / Plan
68yo F with PMH diabetes type I, htn, hld who presents to ED for RLE swelling and discoloration of toe, which progressed over past week. She was sent to ED by her collator. On presentation to ED, her right 3rd toe was found to be
gangrenous with purulent drainage. Wound culture obtained, and started on vancomycin and cefepime. Peripheral ultrasound notable for severely reduced TBI of RLE, negative for DVTs. Foot xray with no evidence of osteomyelitis.
Gangrene of right 3rd toe
Sepsis on admission secondary to above
- On admission had leukocytosis, tachycardia, tachypnea. Lactic acid wnl.
- Wound gram stain polymicrobial; wound culture pending.
- MRI completed to evaluate for osteomyelitis-- report pending.
- ID following, appreciate recs. Continue IV zosyn, vanc (pharmacy dosing).
- Follow temperature curve and trend wbc.
- Podiatry following, appreciate recs. Will require amputation-- awaiting vascular surgery intervention (see below).
Peripheral arterial disease
- New diagnosis this admission given diminished pulses, severely reduced TBI of RLE.
- Vascular surgery consulted, appreciate recs.
- Will be for arteriogram this admission, anticipate 10/03.
Diabetes, type I
- A1C pending. BS [id number].
- PM basal insulin increased last night
- Continue accuchecks, BID basal insulin, AC novolog/aspart, ISS
- Diabetes management consult placed.
Anemia- Unknown hgb baseline. Hgb overall stable, no evidence of acute/chronic bleeding. Suspect iron deficiency, consider supplementation.
Elevated Cr- Unknown baseline. IVF, monitor.
Stress due to hospitalization- Denies history of anxiety. Mood otherwise stable. Ativan 0.5mg q8h prn.
Hypertension- Continue home amlodipine 10mg qD. Hold hctz
Hyperlipidemia- Continue home atorvastatin 80mg qPM, ASA 81mg qD.
History of CVA (2018)
Obesity (BMI 30.1) due to excess calories
Code status: Full
Patient has copy of advanced directive here-- needs to be scanned into chart. If she were to require medical decision maker, it would be son Roberto Carlos.
VTE ppx: Lovenox
Diet: Diabetic, low chol
Dispo planning: anticipate discharge home vs SNF pending clinical course
Anticipated Discharge: > 48 hours
Subjective/Interval History
-
Date of Service: October 01, 2024
No acute events overnight. Reports ongoing pain in right toe with ambulation; relieved by rest and Tylenol. Otherwise ROS negative--denies lightheadedness, dizziness, chest pain, shortness of breath, abdominal pain, nausea, vomiting, diarrhea,
constipation. Tolerating oral diet. Out of bed without assistance. Last BM 2 days ago.
Objective Data
-
Labs:
Laboratory Results
10/01/24
07:11
WBC 9.8
Hgb 10.0 L
Hct 30.1 L
Plt Count 306
Sodium 135
Potassium 4.8
Chloride 103
Carbon Dioxide 21 L
BUN 24 H
Creatinine 1.2 H
Glucose 291 H
Calcium 9.1
Vital Signs:
Vital Signs
Temp Pulse Resp BP Pulse Ox
98.8 F 85 18 127/54 98
10/01/24 07:30 10/01/24 07:30 10/01/24 07:30 10/01/24 07:30 10/01/24 07:30
I&O
09/30/24 10/01/24 10/02/24
06:59 06:59 06:59
Intake Total 1590 / 1590
Balance 1590 / 1590
Review of Systems
-
History Source: Patient
All other systems: Reviewed and negative
Physical Exam
-
General: Well Developed, No Apparent Distress, Comfortable, Conversant and Obese; Negative Pain, Fever, Chills or Sweats
HEENT: Normocephalic and Atraumatic
Respiratory: Clear to Auscultation and Non Labored Respirations; Negative Wheezes, Rales or Rhonchi
Cardiac: Regular Rhythm and S1/S2; Negative Tachycardic
GI: Soft, Nontender, Normal Bowel Sounds and Other (Obese abdomen)
Musculoskeletal: Edema, Right Lower Extrem (+4 pitting edema)
Skin: Warm, Dry and Other (Dressing clean/dry/intact)
Neuro: Awake, Alert, Oriented and Nonfocal/Grossly Intact
Psych: Calm and Intact Judgement/Insight
Data Reviewed
-
Diagnostic Radiology: Image personally visualized and interpreted, Report Reviewed by me and Discussed with Physician
Ultrasound: Report Reviewed by me
MRI: Image personally visualized and interpreted
Labs: Labs Reviewed by me and Discussed with Physician
[2024-10-01] MEDS: LANTUS 0.07 UNITS SC (08:34)
[2024-10-01] MEDS: LOW STRENGTH ASPIRIN 81 MG PO (08:34)
[2024-10-01] MEDS: NORVASC 10 MG PO (08:34)
[2024-10-01] MEDS: TYLENOL 650 MG PO (08:43)
[2024-10-01] MEDS: NOVOLOG FLEXPEN-LOW RESISTANCE 3 UNITS SC (08:44)
[2024-10-01] MEDS: NOVOLOG FLEXPEN SC (08:44)
[2024-10-01] MEDS: NOVOLOG FLEXPEN 6 UNITS SC (08:46)
[2024-10-01 09:01] LABS: Erythrocyte Sed Rate 33 mm/hour (0-20)
[2024-10-01] MEDS: VANCOCIN 275 MG IV (10:01)
[2024-10-01] MEDS: SODIUM BICARBONATE 1075 MEQ IV ×2 (10:01→21:05)
[2024-10-01 10:10] LABS: Glycohemoglobin (HgbA1c) 7.3 % (4.0-5.6)
--- NOTE | 2024-10-01 10:12 | W.PN.ID1 ---
Date of Service
Date of Service: October 01, 2024
Today's Communication
Continue antibiotics.
Assessment / Plan
Right third toe gangrene
Leukocytosis
DM type I
PAD
Recommendations:
A culture of the toe area has been obtained and is pending.
Continue empiric vancomycin.
Continue Zosyn 3.375 g IV every 6 hours
Await further workup by Vascular surgery.
Monitor white count temperature curve.
Follow Vanco levels to prevent nephrotoxicity.
Further recommendations as additional data is returned.
����������������������������������������������������������
Chief Complaint
-: Other (Right third toe gangrene)
Subjective / Review of Systems
Review of Systems: No Fever and No Chills
Vital Signs / Physical Exam
Vital Signs
Vital Signs
Temp Pulse Resp BP Pulse Ox
98.8 F 85 18 127/54 98
10/01/24 07:30 10/01/24 08:34 10/01/24 07:30 10/01/24 08:34 10/01/24 07:30
Physical Exam
Constitutional: No Acute Distress, Comfortable and Non-toxic
Pulmonary: Non Labored
Gastrointestinal: Non Distended
Extremities: Edema (Right lower extremity) and Erythema (Mild; right lower extremity)
Wound: Other (Right third toe black, wrinkled and with significant malodor.)
Neurological: Awake and Alert
Psychological: Calm
Objective Data
Lab Data
Lab Results
10/01/24 07:11
10/01/24 07:11
ESR 33 mm/hour (0-20) H 10/01/24 07:11
Estimated Creat Clear 47 ml/min 10/01/24 07:11
Lactic Acid 1.2 mmol/L (0.7-2.0) 09/30/24 11:43
Total Bilirubin 1.0 mg/dl (0.2-1.3) 09/30/24 11:43
AST 25 U/L (14-36) 09/30/24 11:43
ALT 16 U/L (0-35) 09/30/24 11:43
Alkaline Phosphatase 101 U/L (38-126) 09/30/24 11:43
C-Reactive Protein 48.00 mg/L (0.0-10.00) H 10/01/24 07:11
Most recent labs reviewed.
Micro Results:
09/30/24 11:45 Wound Culture - Pending
Toe Gram Stain - Preliminary
Imaging:
09/30/2024 Right lower extremity MRI: Abnormal third digit proximal, middle, and distal phalanx, as described, suspicious for osteonecrosis. Superimposed occult nondisplaced fractures involving the third proximal phalanx head and proximal diaphysis.
Slightly impacted intra-articular fracture involving the head of the first proximal phalanx. Subtle nondisplaced occult fracture involving the base of the second proximal phalanx.
09/30/2024 X-ray right foot: No convincing radiographic evidence for active osteomyelitis. No acute fracture or dislocation. There is scattered moderate osteoarthritic changes of the anterior phalangeal and first metatarsal joints. No erosions are
evident. Please see full dictation for additional detail.
09/30/2024 arterial ultrasound lower extremity with LESLIE: In the right lower extremity the ABIs are unmeasurable due to noncompressible arteries. TBI is severely reduced at 0.20. Tibial artery and small vessel occlusive disease is suspected. Please
see full dictation for additional detail.
Care Review
Plan reviewed with: Physician (Hospitalist)
--- NOTE | 2024-10-01 10:22 | CM ---
Patient seen bedside.
OOB in chair.
Patients IA completed..
Patient lives alone, 2 story home, [address].
Independent prior to admission, has RW, however does not use.
Patient drives.
No hx VN.
Per patient for arteriogram Sunday.
Patient will have transportation home.
PCP: Dr Riojas
Pharmacy: [facility]
Plan; Home, possible VN needs.
[2024-10-01 11:27] LABS: Glucose - Point of Care 282 mg/dl (70-99)
[2024-10-01] MEDS: NOVOLOG FLEXPEN 8 UNITS SC ×2 (12:41→17:26)
[2024-10-01] MEDS: NOVOLOG FLEXPEN-MODERATE RESISTANCE 5 UNITS SC (12:42)
[2024-10-01 15:03] VITALS: BP 127/58
[2024-10-01 16:14] LABS: Glucose - Point of Care 179 mg/dl (70-99)
[2024-10-01] MEDS: LIPITOR 80 MG PO (17:25)
[2024-10-01] MEDS: LOVENOX 40 MG SC (17:25)
[2024-10-01] MEDS: NOVOLOG FLEXPEN-MODERATE RESISTANCE 1 UNITS SC (17:26)
[2024-10-01 20:50] VITALS: BP 141/58
[2024-10-01] MEDS: ZESTRIL 40 MG PO (21:52)
[2024-10-01] MEDS: ULTRAM 50 MG PO (21:53)
[2024-10-01] MEDS: LANTUS 0.1 UNITS SC (21:54)
[2024-10-01] MEDS: FLUSH (NSS) 1 FLUSH IV (21:54)
[2024-10-01 21:55] LABS: Glucose - Point of Care 282 mg/dl (70-99)
[2024-10-01 23:53] VITALS: BP 131/62
[2024-10-02] MEDS: ZOSYN 50 IV ×4 (04:21→21:59)
[2024-10-02 07:27] LABS: Blood Urea Nitrogen 26 mg/dl (7-17); Calcium 8.8 mg/dl (8.4-10.2); Carbon Dioxide 25 mmol/L (22-30); Chloride 104 mmol/L (98-107); Estimated Creatinine Clearance 47 ml/min; Glucose 304 mg/dl (70-99); Potassium 4.3 mmol/L (3.5-5.1); Sodium 136 mmol/L (135-145); eGFR 49.92
[2024-10-02 07:30] VITALS: BP 137/64
[2024-10-02 07:31] LABS: Vancomycin Random 12.9 ug/ml
[2024-10-02 07:34] LABS: Glucose - Point of Care 305 mg/dl (70-99)
[2024-10-02 07:38] LABS: Hematocrit 28.8 % (37.0-47.0); Hemoglobin 9.5 g/dL (12.0-16.0); Mean Corpuscular Hgb 29.3 pg (27.0-31.0); Mean Corpuscular Volume 88.9 fL (81.0-99.0); Mean Platelet Volume 9.7 fL (7.4-10.4); Platelet Count 247 10^3/uL (130-400); Red Blood Cell Count 3.24 10^6/uL (4.20-5.40); White Blood Cell Count 8.5 10^3/uL (4.8-10.8)
--- NOTE | 2024-10-02 07:46 | PN.DE.MGMTRT ---
Insulin Management
- -
10/02/2024 Diabetes management Consult Follow up
Patient admitted 09/30 with R toe wound. PMH type 1 diabetes, HTN, CVA. Prior to admission was taking 8 units novolog AC with lantus 7 units in AM and 6 units @ hs. A1C 7.3% cr 1.2, eGFR 49.92.
Patient is awake alert and oriented, oob in chair, able to discuss diabetes care. States she has had diabetes since age 32 (originally had gestational diabetes then type 1). Sees Robson Bowling. Uses Mimi 3 CGM.
Patient received 10 units lantus @ hs, fasting glucose 304. Will increase hs lantus to 14 units. Will continue 7 units lantus in AM with [address] Britt has changed corrective from low to moderate corrective.
Discussed with nurse and patient.
Will follow.
Diabetes History
- -
Type of Diabetes: 1
Pre-Admission Diabetes Regimen
10/01/24 10/02/24
07:11 06:53
Creatinine 1.2 H 1.2 H
Lab Results
Hemoglobin A1c 7.3 % (4.0-5.6) H 10/01/24 07:11
Insulin Pump Settings
IP Diabetes Regimen
10/01/24 10/01/24 10/01/24
07:11 11:15 16:03
Glucose 291 H
POC Glucose 282 H 179 H
10/01/24 10/02/24 10/02/24
21:53 06:53 07:32
Glucose 304 H
POC Glucose 282 H 305 H
Meal type: Lunch
Meal type: Breakfast
Amount consumed: 100%
Amount consumed: 100%
Patient Education
[2024-10-02] MEDS: NOVOLOG FLEXPEN-MODERATE RESISTANCE 7 UNITS SC (08:32)
[2024-10-02] MEDS: LANTUS 0.07 UNITS SC (08:33)
[2024-10-02] MEDS: NOVOLOG FLEXPEN 10 UNITS SC ×3 (08:34→16:33)
[2024-10-02] MEDS: LOW STRENGTH ASPIRIN 81 MG PO (08:34)
[2024-10-02] MEDS: NORVASC 10 MG PO (08:34)
[2024-10-02] MEDS: ULTRAM 50 MG PO ×2 (08:46→21:59)
[2024-10-02] MEDS: NOVOLOG FLEXPEN SC (08:52)
--- NOTE | 2024-10-02 09:35 | PHA.VAN.FU ---
Vancomycin Assessment / Plan
- Assessment
Renal Function: Stable
WBC's are: WNL
In the past 24 hrs, patient has been: Afebrile
Concomitant Antimicrobials: piperacillin/tazobactam
- Assessment - Therapeutic Drug Monitoring
Random Level: 12.9 - drawn ~21H after previous dose of 1250mg
- Dosing Plan
Dosing by Level: Re-dose today (Vanc 1250mg)
- Monitoring Plan
Random Level: 10/03 06
- Follow Up
Pharmacy will continue to follow.
Vancomycin Follow UP
- -
Patient Age: 68
Patient Sex: Female
Vancomycin Day #: 3
Indication: Diabetic Foot
Requesting Provider: Dr. Mancilla (resident) / [facility]
Pertinent Antimicrobial Allergies:
no pertinent antimicrobial allergies
Height / Weight:
Height 5 ft 4 in
Actual Weight 78.471 kg
Pertinent Past Medical History: DM
- Vital Signs / Lab Results
Temp Pulse Resp BP Pulse Ox
98.3 F 87 18 137/64 96
10/02/24 07:30 10/02/24 08:34 10/02/24 07:30 10/02/24 08:34 10/02/24 08:29
Lab Results - Hematology
09/30/24 10/01/24 10/02/24
11:43 07:11 06:53
WBC 11.2 H 9.8 8.5
Lab Results - Chemistry
09/30/24 10/01/24 10/02/24
11:43 07:11 06:53
BUN 29 H 24 H 26 H
Creatinine 1.1 H 1.2 H 1.2 H
Estimated Creat Clear 51 47 47
Albumin 4.3
09/30/24
11:43
Lactic Acid 1.2
Microbiology Results
09/30/24 11:45 Wound Culture - Preliminary
Toe Klebsiella oxytoca
Staphylococcus aureus
Diptheroids
Gram Stain - Preliminary
Therapeutic Drug Monitoring
Random Vancomycin 12.9 ug/ml 10/02/24 06:53
[2024-10-02] MEDS: SODIUM BICARBONATE 1075 MEQ IV (09:51)
[2024-10-02] MEDS: FLUSH (NSS) 1 FLUSH IV ×3 (09:52→15:59)
--- NOTE | 2024-10-02 09:56 | W.PN.HOSP.TC ---
Today's Communication/Plan
-
Continue antibiotics. Plan for arteriogram with vascular surgery tomorrow, NPO after midnight.
Assessment / Plan
Assessment / Plan
68yo F with PMH diabetes type I, htn, hld who presents to ED for RLE swelling and discoloration of toe, which progressed over past week. She was sent to ED by her patient transport officer. On presentation to ED, her right 3rd toe was found to be
gangrenous with purulent drainage. Wound culture obtained, and started on vancomycin and cefepime. Peripheral ultrasound notable for severely reduced TBI of RLE, negative for DVTs. Foot xray with no evidence of osteomyelitis.
Gangrene of right 3rd toe with osteomyelitis
Sepsis on admission secondary to above
- On admission had leukocytosis, tachycardia, tachypnea. Lactic acid wnl.
- Wound gram stain polymicrobial; wound culture prelim: klebsiella, staph aureus, diptheroids; final result pending.
- MRI with evidence of osteonecrosis of of 3rd toe proximal, middle, and distal phalanx.
- ID following, appreciate recs. Continue IV zosyn, vanc (pharmacy dosing).
- Follow temperature curve and trend wbc.
- Podiatry following, appreciate recs. Will require amputation-- awaiting vascular surgery intervention (see below).
Peripheral arterial disease
- New diagnosis this admission given diminished pulses, severely reduced TBI of RLE.
- Vascular surgery consulted, appreciate recs.
- Will be for arteriogram this admission, anticipate 10/03.
Diabetes, type I
- A1C 7.3. BS remain elevated.
- Continue accuchecks, BID basal insulin, AC novolog/aspart, ISS
- Diabetes management following, appreciate recs.
Anemia- Unknown hgb baseline. Hgb overall stable, no evidence of acute/chronic bleeding. Suspect anemia chronic disease.
Elevated Cr- Unknown baseline. IVF, monitor.
Stress due to hospitalization- Denies history of anxiety. Mood otherwise stable. Ativan 0.5mg q8h prn.
Hypertension- Continue home amlodipine 10mg qD. Hold hctz
Hyperlipidemia- Continue home atorvastatin 80mg qPM, ASA 81mg qD.
History of CVA (2018)
Obesity (BMI 30.1) due to excess calories
Code status: Full
Patient has copy of advanced directive here-- needs to be scanned into chart. If she were to require medical decision maker, it would be son Roberto Carlos.
VTE ppx: Lovenox
Diet: Diabetic, low chol
Dispo planning: anticipate discharge home vs SNF pending clinical course
Anticipated Discharge: > 48 hours
Subjective/Interval History
-
Date of Service: October 02, 2024
No acute events overnight. Reports minimal pain in her toe, though did take tramadol for relief. Otherwise no complaints. ROS negative. Voiding spontaneously. Out of bed to bathroom. Last BM 2 days ago.
Objective Data
-
Labs:
Laboratory Results
10/02/24
06:53
WBC 8.5
Hgb 9.5 L
Hct 28.8 L
Plt Count 247
Sodium 136
Potassium 4.3
Chloride 104
Carbon Dioxide 25
BUN 26 H
Creatinine 1.2 H
Glucose 304 H
Calcium 8.8
Vital Signs:
Vital Signs
Temp Pulse Resp BP Pulse Ox
98.3 F 87 18 137/64 96
10/02/24 07:30 10/02/24 08:34 10/02/24 07:30 10/02/24 08:34 10/02/24 08:29
I&O
10/01/24 10/02/24 10/03/24
06:59 06:59 06:59
Intake Total 1590 / 1590 2990 / 2990
Balance 1590 / 1590 2990 / 2990
Review of Systems
-
History Source: Patient
All other systems: Reviewed and negative
Physical Exam
-
General: Well Developed, No Apparent Distress, Comfortable, Conversant and Obese; Negative Pain, Fever, Chills or Sweats
HEENT: Normocephalic and Atraumatic
Respiratory: Clear to Auscultation and Non Labored Respirations; Negative Wheezes, Rales or Rhonchi
Cardiac: Regular Rhythm and S1/S2; Negative Tachycardic
GI: Soft, Nontender, Normal Bowel Sounds and Other (Obese abdomen)
Musculoskeletal: Edema, Right Lower Extrem (+4 pitting edema) and Edema, Left Lower Extrem (+2 pitting edema)
Skin: Warm, Dry and Other (Dressing clean/dry/intact)
Neuro: Awake, Alert, Oriented and Nonfocal/Grossly Intact
Psych: Calm
Data Reviewed
-
Diagnostic Radiology: Image personally visualized and interpreted, Report Reviewed by me and Discussed with Physician
Ultrasound: Report Reviewed by me
MRI: Report Reviewed by me
Labs: Labs Reviewed by me and Discussed with Physician
--- NOTE | 2024-10-02 09:57 | W.PN.UPDATE ---
Update Note
Progress Note Update
I saw and evaluated the patient. I reviewed the resident�s note and agree with findings and plan as documented in the resident�s note.
No new complaints.
Gen: NAD, AAOx3.
Eyes: EOMI, PERRLA, no scleral icterus.
Neck: supple.
CV: RRR, +S1/S2, 2/6 systolic murmur
Resp: continues to remain CTAB, no rales, wheezes, or rhonchi.
Abd: +BS, soft, NT, ND
Skin: No rashes.
Neuro: CN 2-12 intact, non-focal.
Psych: Normal mood and affect.
09/30/24 11:45 Toe Wound Culture - Preliminary
Klebsiella oxytoca
Staphylococcus aureus
Diptheroids
09/30/24 11:45 Toe Gram Stain - Preliminary
B/L LE art U/S:
RIGHT LOWER EXTREMITY: LESLIE unmeasurable due to noncompressible arteries. TBI severely reduced at 0.20. Arterial duplex examination reveals multiphasic waveforms from the common femoral artery through the popliteal artery with no focal velocity
elevations to suggest significant stenosis. Monophasic continuous Doppler waveforms are demonstrated in the posterior tibial artery and dorsalis pedis artery. Tibial artery and small vessel occlusive disease suspected.
LEFT LOWER EXTREMITY: LESLIE unmeasurable due to noncompressible arteries. TBI within normal limits at 0.81. Arterial duplex examination reveals multiphasic waveforms from the common femoral artery through the popliteal artery with no focal velocity
elevations to suggest significant stenosis. Multiphasic continuous Doppler waveforms are demonstrated in the posterior tibial artery and dorsalis pedis artery.
B/L LE venous U/S:
1. No sonographic evidence for right lower extremity deep venous thrombosis.
2. Severe diffuse subcutaneous edema throughout the right lower leg.
MRI R foot: Abnormal third digit proximal, middle, and distal phalanx, as described, suspicious for osteonecrosis. Superimposed occult nondisplaced fractures involving the third proximal phalanx head and proximal diaphysis. Slightly impacted
intra-articular fracture involving the head of the first proximal phalanx. Subtle nondisplaced occult fracture involving the base of the second proximal phalanx. No focal soft tissue collection or abscess.
Sepsis due to gangrenous R 3rd toe with osteomyelitis:
-due to PAD
-a/e/b leukocytosis, tachycardia, tachypnea, source right third toe gangrene
-cont Vanco/Zosyn as per ID
-non-AG met acidosis resolved with 1/2NS with NaHCO3, stop IVFs
-vascular to perform arteriogram
-will need amputation of at least R 3rd toe, podiatry following
-cont ASA/statin
-Ultram for moderate pain, IV Dilaudid for severe pain
DM1:
-a1c 7.3%
-cont basal/bolus regimen
-SSI/accuchecks
-diabetes BUTCHER ALL ROUND following
Other problems:
CKD3a (suspect baseline Cr 1.1-1.2 due to diabetic nephropathy)
Essential hypertension: cont Norvasc/ACEi, holding HCTZ
Obesity due to excess calories
FULL/Lovenox
[2024-10-02] MEDS: VANCOCIN 275 MG IV (11:13)
[2024-10-02] MEDS: NSS 1000 IV (11:14)
[2024-10-02 12:16] LABS: Glucose - Point of Care 290 mg/dl (70-99)
[2024-10-02] MEDS: NOVOLOG FLEXPEN-MODERATE RESISTANCE 5 UNITS SC (13:00)
--- NOTE | 2024-10-02 15:42 | PTCARENOTE ---
Pt AAO x3, CHAU; OOB in chair for shift; ambulates to BR; denies weakness/dizziness. VSS. On room air- pulse ox 96%, no SOB noted. Abd large, soft, arcadio PO well. Voids in BR without difficulty. Resting quietly at present, no c/o. Will continue
to monitor.
[2024-10-02 15:50] VITALS: BP 123/54
[2024-10-02 16:24] LABS: Glucose - Point of Care 174 mg/dl (70-99)
[2024-10-02] MEDS: NOVOLOG FLEXPEN-MODERATE RESISTANCE 1 UNITS SC (16:33)
[2024-10-02] MEDS: LIPITOR 80 MG PO (18:08)
[2024-10-02] MEDS: LOVENOX 40 MG SC (18:08)
[2024-10-02] MEDS: ZESTRIL 40 MG PO (20:02)
[2024-10-02 21:57] LABS: Glucose - Point of Care 152 mg/dl (70-99)
[2024-10-02] MEDS: LANTUS 0.14 UNITS SC (21:59)
[2024-10-02 23:25] VITALS: BP 127/53
[2024-10-03] VITALS (18 sets, daily range): BP systolic 111–147; BP diastolic 49–72
[2024-10-03] MEDS: NSS 1000 IV ×3 (01:18→18:46)
[2024-10-03] MEDS: TYLENOL 650 MG PO (01:21)
[2024-10-03] MEDS: ZOSYN 50 IV ×4 (04:07→22:18)
[2024-10-03] MEDS: ULTRAM 50 MG PO ×2 (06:01→20:31)
[2024-10-03 06:17] LABS: Hematocrit 26.9 % (37.0-47.0); Hemoglobin 9.1 g/dL (12.0-16.0); Mean Corp Hgb Conc. 33.8 g/dL (33.0-37.0); Mean Corpuscular Hgb 29.8 pg (27.0-31.0); Mean Corpuscular Volume 88.2 fL (81.0-99.0); Mean Platelet Volume 9.9 fL (7.4-10.4); Platelet Count 227 10^3/uL (130-400); Red Blood Cell Count 3.05 10^6/uL (4.20-5.40); White Blood Cell Count 8.9 10^3/uL (4.8-10.8)
[2024-10-03 06:22] LABS: Glucose - Point of Care 126 mg/dl (70-99)
[2024-10-03 06:23] LABS: INR 0.96; PT 13.3 Sec (11.4-14.6)
[2024-10-03 06:24] LABS: APTT 36.4 Sec (23.4-35.0)
[2024-10-03] MEDS: NOVOLOG FLEXPEN-MODERATE RESISTANCE SC ×2 (06:34→11:56)
[2024-10-03 06:41] LABS: Vancomycin Random 13.5 ug/ml
[2024-10-03 06:42] LABS: Blood Urea Nitrogen 23 mg/dl (7-17); Carbon Dioxide 22 mmol/L (22-30); Chloride 105 mmol/L (98-107); Estimated Creatinine Clearance 47 ml/min; Glucose 132 mg/dl (70-99); Potassium 4.2 mmol/L (3.5-5.1); Sodium 138 mmol/L (135-145); eGFR 49.92
[2024-10-03 08:13] LABS: Glucose - Point of Care 165 mg/dl (70-99)
--- NOTE | 2024-10-03 08:14 | PN.DE.MGMTRT ---
Insulin Management
- -
10/03/2024 Diabetes management Follow up
Patient admitted 09/30 with R toe wound. PMH: T1DM, HTN, CVA. Prior to admission was taking 8 units NovoLog AC with Lantus 7 units in AM and 6 units @ hs. States she has had diabetes since age 32 (originally had gestational diabetes then type 1).
Sees Dr. Tyler, [facility]. Uses Mimi 3 CGM. A1C 7.3% cr 1.2, eGFR 49.92.
Patient is awake alert and oriented, sitting up in bed, offers no complaints, able to discuss diabetes care.
Patient has been NPO since [place]. Plan for arteriogram with vascular surgery today.
Received 14 units Lantus @ hs, FBG 132 (V), 126 POC, Will continue Lantus 7 units in AM and 14 units @ HS.
Premeal glucose 10/02 174 to 305 Will continue 10 units NovoLog AC and moderate corrective.
Discussed with nurse, instructed to use corrective insulin while NPO. Will cont to follow.
Diabetes History
- -
Type of Diabetes: 2 requiring insulin
Pre-Admission Diabetes Regimen
10/03/24
05:47
Creatinine 1.2 H
Lab Results
Hemoglobin A1c 7.3 % (4.0-5.6) H 10/01/24 07:11
Insulin Pump Settings
IP Diabetes Regimen
10/02/24 10/02/24 10/02/24
12:14 16:23 21:54
Glucose
POC Glucose 290 H 174 H 152 H
10/03/24 10/03/24 10/03/24
05:47 06:17 08:13
Glucose 132 H
POC Glucose 126 H 165 H
Meal type: Dinner
Meal type: Lunch
Meal type: Breakfast
Amount consumed: 50%
Amount consumed: 100%
Amount consumed: 100%
Patient Education
[2024-10-03] MEDS: LOW STRENGTH ASPIRIN 81 MG PO (09:04)
[2024-10-03] MEDS: NORVASC 10 MG PO (09:05)
--- NOTE | 2024-10-03 09:12 | W.PN.HOSP.TC ---
Today's Communication/Plan
-
Angiogram with vascular surgery today
Assessment / Plan
Assessment / Plan
68yo F with PMH diabetes type I, htn, hld who presents to ED for RLE swelling and discoloration of toe, which progressed over past week. She was sent to ED by her software applications developer. On presentation to ED, her right 3rd toe was found to be
gangrenous with purulent drainage. Wound culture obtained, and started on vancomycin and cefepime. Peripheral ultrasound notable for severely reduced TBI of RLE, negative for DVTs. Foot xray with no evidence of osteomyelitis.
Gangrene of right 3rd toe with osteomyelitis
Sepsis on admission secondary to above
- On admission had leukocytosis, tachycardia, tachypnea. Lactic acid wnl.
- Wound gram stain polymicrobial; wound culture: klebsiella, staph aureus, diptheroids.
- MRI with evidence of osteonecrosis of of 3rd toe proximal, middle, and distal phalanx.
- ID following, appreciate recs. Continue IV zosyn, vanc (pharmacy dosing).
- Follow temperature curve and trend wbc.
- Podiatry following, appreciate recs. Will require amputation-- awaiting vascular surgery intervention (see below).
Peripheral arterial disease
- New diagnosis this admission given diminished pulses, severely reduced TBI of RLE.
- Vascular surgery consulted, appreciate recs.
- Will be for arteriogram today with vascular surgery. NPO.
Diabetes, type I
- A1C 7.3. BS remain elevated.
- Continue accuchecks, BID basal insulin, AC novolog/aspart, ISS
- Diabetes management following, appreciate recs.
- While NPO, hold AM dose of basal insulin today. Continue ISS.
Anemia- Unknown hgb baseline. Hgb overall stable, no evidence of acute/chronic bleeding. Suspect anemia chronic disease.
Suspected CKD3a secondary to diabetic neuropathy- Unknown baseline, likely 1.1-1.2. Stable. Repeat bmp with pcp.
Non-anion gap metabolic acidosis- resolved.
Stress due to hospitalization- Denies history of anxiety. Mood otherwise stable. Ativan 0.5mg q8h prn ordered; has not required any.
Hypertension- Continue home amlodipine 10mg qD. Hold hctz
Hyperlipidemia- Continue home atorvastatin 80mg qPM, ASA 81mg qD.
History of CVA (2017)
Obesity (BMI 30.1) due to excess calories
Code status: Full
Patient has copy of advanced directive here-- needs to be scanned into chart. If she were to require medical decision maker, it would be krunal Azevedo.
VTE ppx: Lovenox
Diet: NPO (Diabetic, low chol)
Dispo planning: anticipate discharge home vs SNF pending clinical course
Anticipated Discharge: 24 - 48 hours
Subjective/Interval History
-
Date of Service: October 03, 2024
No acute events overnight. Reports that her toe pain is well-controlled with tramadol. No other complaints, ROS negative. Tolerating regular diet, voiding spontaneously, last BM yesterday, out of bed as tolerated.
Objective Data
-
Labs:
Laboratory Results
10/03/24
05:47
WBC 8.9
Hgb 9.1 L
Hct 26.9 L
Plt Count 227
PT 13.3
INR 0.96
APTT 36.4 H
Sodium 138
Potassium 4.2
Chloride 105
Carbon Dioxide 22
BUN 23 H
Creatinine 1.2 H
Glucose 132 H
Calcium 9.0
Vital Signs:
Vital Signs
Temp Pulse Resp BP Pulse Ox
98 F 64 20 126/58 98
10/03/24 07:34 10/03/24 07:34 10/03/24 07:34 10/03/24 09:05 10/03/24 07:34
I&O
10/02/24 10/03/24 10/04/24
06:59 06:59 06:59
Intake Total 2990 / 2990 3325 / 3325
Balance 2990 / 2990 3325 / 3325
Review of Systems
-
History Source: Patient
All other systems: Reviewed and negative
Physical Exam
-
General: Well Developed, No Apparent Distress, Comfortable, Conversant and Obese; Negative Pain, Fever, Chills or Sweats
HEENT: Normocephalic and Atraumatic
Respiratory: Clear to Auscultation and Non Labored Respirations; Negative Wheezes, Rales or Rhonchi
Cardiac: Regular Rhythm and S1/S2; Negative Tachycardic
GI: Soft, Nontender, Normal Bowel Sounds and Other (Obese abdomen)
Musculoskeletal: Edema, Right Lower Extrem (+3 pitting edema) and Edema, Left Lower Extrem (+1 pitting edema)
Skin: Warm, Dry and Other (Dressing clean/dry/intact, malodorous)
Neuro: Awake, Alert, Oriented and Nonfocal/Grossly Intact
Psych: Calm
Data Reviewed
-
Diagnostic Radiology: Image personally visualized and interpreted, Report Reviewed by me and Discussed with Physician
Ultrasound: Report Reviewed by me
MRI: Report Reviewed by me
Labs: Labs Reviewed by me and Discussed with Physician
[2024-10-03] MEDS: NOVOLOG FLEXPEN SC ×2 (10:07→11:55)
[2024-10-03] MEDS: LANTUS SC (10:08)
--- NOTE | 2024-10-03 11:29 | W.PN.ID1 ---
Addendum entered and electronically signed by Celso Callahan DO 10/03/24 18:16:
I saw and evaluated the patient. I reviewed the resident�s note and agree with findings and plan as documented in the resident�s note.
Patient just returned from PACU. Operative report reviewed.
Continue Zosyn at present. Vancomycin discontinued as no MRSA recovered.
Await further interventions by Vascular surgery and Podiatry
Original Note:
Date of Service
Date of Service: October 03, 2024
Today's Communication
Discontinue vanc
Continue Zosyn.
Assessment / Plan
Right third toe gangrene
Leukocytosis
DM type I
PAD
Recommendations:
Toe culture positive for Klebsiella oxytoca, MSSA, Diptheroids.
Discontinue vancomycin . Continue zosyn.
Plan for arteriogram this afternoon per Vascular surgery.
Monitor white count temperature curve.
Further recommendations as additional data is returned.
����������������������������������������������������������
Chief Complaint
-: Other (Right third toe gangrene)
Subjective / Review of Systems
Review of Systems: No Fever, No Chills and No Headache
Vital Signs / Physical Exam
Vital Signs
Vital Signs
Temp Pulse Resp BP Pulse Ox
98 F 64 20 126/58 98
10/03/24 07:34 10/03/24 07:34 10/03/24 07:34 10/03/24 09:05 10/03/24 07:34
Physical Exam
Constitutional: No Acute Distress, Comfortable and Non-toxic
Eyes: No Conjunctival Hemorrhage and Sclera Anicteric
Cardiovascular: Regular Rate and S1/S2; Negative S3/S4
Pulmonary: Non Labored
Gastrointestinal: Non Distended
Extremities: Edema (Right lower extremity) and Erythema (Mild; right lower extremity)
Wound: Other (Right third toe black, wrinkled and with significant malodor.)
Neurological: Awake and Alert
Psychological: Calm
Objective Data
Lab Data
Lab Results
10/03/24 05:47
10/03/24 05:47
ESR 33 mm/hour (0-20) H 10/01/24 07:11
PT 13.3 Sec (11.4-14.6) 10/03/24 05:47
INR 0.96 10/03/24 05:47
APTT 36.4 Sec (23.4-35.0) H 10/03/24 05:47
Estimated Creat Clear 47 ml/min 10/03/24 05:47
Lactic Acid 1.2 mmol/L (0.7-2.0) 09/30/24 11:43
Total Bilirubin 1.0 mg/dl (0.2-1.3) 09/30/24 11:43
AST 25 U/L (14-36) 09/30/24 11:43
ALT 16 U/L (0-35) 09/30/24 11:43
Alkaline Phosphatase 101 U/L (38-126) 09/30/24 11:43
C-Reactive Protein 48.00 mg/L (0.0-10.00) H 10/01/24 07:11
Most recent labs reviewed.
Micro Results:
09/30/24 11:45 Wound Culture - Final
Toe Klebsiella oxytoca
S aureus-Methicillin Sensitive
Diptheroids
Gram Stain - Final
Imaging:
09/30/2024 Right lower extremity MRI: Abnormal third digit proximal, middle, and distal phalanx, as described, suspicious for osteonecrosis. Superimposed occult nondisplaced fractures involving the third proximal phalanx head and proximal diaphysis.
Slightly impacted intra-articular fracture involving the head of the first proximal phalanx. Subtle nondisplaced occult fracture involving the base of the second proximal phalanx.
09/30/2024 X-ray right foot: No convincing radiographic evidence for active osteomyelitis. No acute fracture or dislocation. There is scattered moderate osteoarthritic changes of the anterior phalangeal and first metatarsal joints. No erosions are
evident. Please see full dictation for additional detail.
09/30/2024 arterial ultrasound lower extremity with LESLIE: In the right lower extremity the ABIs are unmeasurable due to noncompressible arteries. TBI is severely reduced at 0.20. Tibial artery and small vessel occlusive disease is suspected. Please
see full dictation for additional detail.
[2024-10-03 11:50] LABS: Glucose - Point of Care 192 mg/dl (70-99)
--- NOTE | 2024-10-03 12:38 | W.PN.UPDATE ---
Update Note
Progress Note Update
I saw and evaluated the patient. I reviewed the resident�s note and agree with findings and plan as documented in the resident�s note.
No new complaints.
Gen: remains NAD, AAOx3.
Eyes: EOMI, PERRLA, no scleral icterus.
Neck: supple.
CV: remains RRR, +S1/S2, 2/6 systolic murmur
Resp: CTAB, no rales, wheezes, or rhonchi.
Abd: +BS, soft, NT, ND
Skin: No rashes.
Neuro: remains CN 2-12 intact, non-focal.
Psych: Normal mood and affect.
09/30/24 11:45 Toe Wound Culture - Final
Klebsiella oxytoca
S aureus-Methicillin Sensitive
Diptheroids
09/30/24 11:45 Toe Gram Stain - Final
B/L LE art U/S:
RIGHT LOWER EXTREMITY: LESLIE unmeasurable due to noncompressible arteries. TBI severely reduced at 0.20. Arterial duplex examination reveals multiphasic waveforms from the common femoral artery through the popliteal artery with no focal velocity
elevations to suggest significant stenosis. Monophasic continuous Doppler waveforms are demonstrated in the posterior tibial artery and dorsalis pedis artery. Tibial artery and small vessel occlusive disease suspected.
LEFT LOWER EXTREMITY: LESLIE unmeasurable due to noncompressible arteries. TBI within normal limits at 0.81. Arterial duplex examination reveals multiphasic waveforms from the common femoral artery through the popliteal artery with no focal velocity
elevations to suggest significant stenosis. Multiphasic continuous Doppler waveforms are demonstrated in the posterior tibial artery and dorsalis pedis artery.
B/L LE venous U/S:
1. No sonographic evidence for right lower extremity deep venous thrombosis.
2. Severe diffuse subcutaneous edema throughout the right lower leg.
MRI R foot: Abnormal third digit proximal, middle, and distal phalanx, as described, suspicious for osteonecrosis. Superimposed occult nondisplaced fractures involving the third proximal phalanx head and proximal diaphysis. Slightly impacted
intra-articular fracture involving the head of the first proximal phalanx. Subtle nondisplaced occult fracture involving the base of the second proximal phalanx. No focal soft tissue collection or abscess.
Sepsis due to gangrenous R 3rd toe with osteomyelitis:
-due to PAD
-a/e/b leukocytosis, tachycardia, tachypnea, source right third toe gangrene
-cont Vanco/Zosyn as per ID
-non-AG met acidosis resolved with 1/2NS with NaHCO3, stop IVFs
-vascular to perform arteriogram today
-will need amputation of at least R 3rd toe, podiatry following
-cont ASA/statin
-Ultram for moderate pain, IV Dilaudid for severe pain
DM1:
-a1c 7.3%
-cont basal/bolus regimen (hold AM Lantus as pt NPO)
-SSI/accuchecks
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
Other problems:
CKD3a (suspect baseline Cr 1.1-1.2 due to diabetic nephropathy)
Essential hypertension: cont Norvasc/ACEi, holding HCTZ
Obesity due to excess calories
Pt's daughter updated at bedside.
FULL/Lovenox
Total time spent on today's encounter was 50 minutes which included time spent in counseling the patient/family regarding diagnosis and treatment plan as listed above, goals of care, and symptom management. Case was discussed with nursing staff,
specialists, and care coordinators/case management. All labs and imaging personally reviewed by me. Remainder the time spent in detailed review of previous records, lab data, imaging, and other medical provider documentation.
[2024-10-03 13:23] LABS: Glucose - Point of Care 219 mg/dl (70-99)
[2024-10-03] MEDS: NOVOLOG FLEXPEN-MODERATE RESISTANCE 3 UNITS SC (13:23)
--- NOTE | 2024-10-03 14:04 | CM ---
Patient seen at bedside, plan for arteriogram today, await results, functional status assessments to determine level of care needs.
Plan; home with VN pending assessments.
--- NOTE | 2024-10-03 14:34 | W.SUR.PREOP ---
Pre-Operative Surgical Note
-
I have examined this patient prior to the performance of the scheduled procedure.
The patient's condition is unchanged from the time of the current History and
Physical and the patient is able to undergo the scheduled procedure.
[2024-10-03 15:09] LABS: Glucose - Point of Care 205 mg/dl (70-99)
--- NOTE | 2024-10-03 16:20 | W.SUR.POST ---
Surgical Immediate Post Op
Note
Pre Op Diagnosis: PAD
Post Op Diagnosis: PAD
Procedure Performed: RLE angiogram via L groin access, R pedal access, no interventions
Primary Surgeon: Edgar Garcia
Secondary Surgeons: Connor Juarez
Anesthesia: see anesthesia flowsheet
Estimated Blood Loss: 2cc
Fluids: see anesthesia flowsheet
Drains/Shunts: none
Specimens/Cultures: none
Doppler/Duplex/Angio (Y/N): y
Complications: none
Operative Findings: L groin access. RLE angiogram. Patent inflow with primarily tibial disease. AT long-segment occlusion from above ankle to foot. Peroneal patent with bifurcation at ankle. PT patent with decent plantar floor. Accessed AT but
unable to cross occlusion. Retrograde access via R DP, but again unable to cross occlusion. No interventions performed, will assess limflow candidacy.
[2024-10-03 17:04] LABS: Glucose - Point of Care 181 mg/dl (70-99)
--- NOTE | 2024-10-03 17:12 | OR.RPT ---
Operative Report
Operative Report
Date of Operation: 10/03/2024
Pre Op Diagnosis:
1. Ruby artery atherosclerosis with gangrene
2. Diabetes with atherosclerosis
3. Gangrene of the right third toe with associated soft tissue infection
Post Op Diagnosis:
1. Ruby artery atherosclerosis with gangrene
2. Diabetes with atherosclerosis
3. Gangrene of the right third toe with associated soft tissue infection
Procedure:
1.) Selective catheterization of third order lower extremity artery
2.) Diagnostic aortobiiliac arteriogram
3.) Diagnostic right lower extremity arteriogram
4.) Ultrasound-guided percutaneous retrograde pedal artery access
5.) Ultrasound-guided percutaneous left common femoral artery access
Surgeon: Edgar Garcia III, MD
Bale Piler: Connor Juarez MD, PGY4
Anesthesia: Sedation with local
Fluoroscopy:
31.5 min
95 mGy
23.36 Gy.cm2
Complications: None
Estimated Blood Loss: Less than 20 cc
History and Indications for Procedure: 68-year-old female with poorly controlled diabetes and peripheral arterial disease. She presented with gangrene of her right third toe and associated soft tissue infection.
Procedure in Detail: Ledy Jurado was correctly identified and placed supine on the operating table. After adequate induction of anesthesia the bilateral groins were prepped and draped in the usual sterile fashion. A timeout was performed with
the nursing and anesthesia staff confirming the patient's identity as well as the nature and laterality of the procedure.
The left common femoral artery was identified under ultrasound guidance. The artery was patent. The superior and inferior aspects of the femoral head were identified with radiographic guidance and marked at the skin level. The proposed puncture site
was infiltrated with local anesthesia. Under ultrasound guidance we accessed the left common femoral artery with a micropuncture needle and upsized to a 5 Fr sheath over a CancerIQson wire. The wire and a [employer] hook flush catheter were advanced into
the distal abdominal aorta and a diagnostic aorto-biiliac arteriogram was performed:
AORTO-ILIAC ARTERIOGRAM:
Aorta: Patent with no stenosis identified
Right common iliac artery: Patent with no stenosis identified
Right external iliac artery: Patent with no stenosis identified
Left common iliac artery: Patent with no stenosis identified
Left external iliac artery: Patent with no stenosis identified
Under roadmap guidance using a Glidewire and the Shepherds hook catheter we selected the right common iliac artery and then the external iliac artery. A catheter was tracked up and over the aortic bifurcation and placed in the distal external iliac
artery. A diagnostic right lower extremity arteriogram was then performed which demonstrated the following:
RIGHT LOWER EXTREMITY:
Common femoral artery: Patent with no stenosis identified
Profunda femoral artery: Patent with no stenosis identified
Superficial femoral artery: Patent with no stenosis identified
Popliteal artery: Patent with no stenosis identified
Anterior tibial artery: Patent. No stenosis in the proximal and mid segment. Tapers distally and then occludes abruptly at the ankle. Heavily calcified. No meaningful distal reconstitution of the dorsalis pedis artery in the foot.
Tibioperoneal trunk: Patent
Peroneal artery: Patent to the ankle. Moderate stenosis in the mid to distal segment.
Posterior tibial artery: Patent. No significant stenosis identified. Crosses the ankle to form plantar branches which are heavily diseased.
*Significant small vessel disease is identified in the foot
ENDOVASCULAR INTERVENTION: Systemic heparin was administered. The superficial femoral artery was selected with the Glidewire and vora's hook catheter. I then exchanged out for a 5 Fr 70 cm sheath over a Storq wire. Selected the anterior tibial
artery under roadmap guidance with Quickcross catheter and glidewire. The Quickcross catheter was brought to the distal anterior tibial artery. I then exchanged out for a 0.014 command wire and a 0.014 quick cross. I was unable to cross the
occluded anterior tibial artery with this approach. Under ultrasound guidance I then attempted to cross retrograde from a pedal access approach. The foot was prepped in the usual sterile fashion. Under ultrasound guidance I identified the
dorsalis pedis artery in the foot. This was heavily calcified diffusely. Calcified luminal plaque was identified. I attempted to access the artery under ultrasound guidance with a micropuncture needle. I was able to achieve lumen access and pass
the microwire retrograde for several centimeters but could not make progress getting the wire to pass through the occluded dorsalis pedis artery. I tried to gain additional support by advancing the micro dilator over the wire but could not make
additional progress with wire advancement retrograde through the occluded segment. At this point I abandoned further attempts to intervene.
Protamine was administered. The 5 Turkish sheath was pulled back into the left external iliac artery. The sheath was pulled and direct manual pressure was held over the puncture site until hemostasis was achieved. A sterile dressing was applied.
The micro dilator and wire were pulled from the dorsalis pedis access site. Direct manual pressure was held over the puncture site until hemostasis was achieved. Sterile dressing was applied.
The patient tolerated the procedure well and was taken to the recovery area in stable condition.
Attestation: I was present and responsible for the entire procedure.
Signed:
Edgar Garcia III, MD
[facility]
[phone] (cell)
[2024-10-03] MEDS: MORPHINE SULFATE 1 MG IV ×2 (17:24→17:42)
--- NOTE | 2024-10-03 17:35 | W.PN.SURGUPD ---
Surgical Update
Surgical Update
68yo F with PMH diabetes type I, htn, hld who presents to for right 3rd toe gangrene in the setting of poor vascular exam
-Vascular surgery planning for further workup for possible DVA
-Will defer right foot surgical intervention pending vascular surgery findings
-If source control becomes required, will proceed with surgical intervention
-Continue daily wound care with betadine pain to right 2nd,3rd,4th toes
-Continue antibiotics per ID recs
-Will continue to follow
[2024-10-03 18:29] LABS: Glucose - Point of Care 184 mg/dl (70-99)
[2024-10-03] MEDS: LOVENOX 40 MG SC (18:37)
[2024-10-03] MEDS: LIPITOR 80 MG PO (18:37)
[2024-10-03] MEDS: NOVOLOG FLEXPEN 10 UNITS SC (18:39)
--- NOTE | 2024-10-03 20:04 | PTCARENOTE ---
Patient returned from angiogram. Vital signs stable. Right foot with dressing intact without drainage noted. Patient and family instructed on keeping HOB at current degree until instructed. Verbalize understanding of activity restriction. No
bleeding noted from groin. Pedal pulses weak and checked with doppler to be present. Patient's lower extremities are warm to touch. See post arteriogram flow sheet for further documentation. Patient medicated post arteriogram for lower back pain.
Will monitor and medicate as needed.
--- NOTE | 2024-10-03 20:38 | PTCARENOTE ---
late note due to patient care:
Scant amount of sang drainage on left groin dressing noed. Border drawn. See EMR for full neruoasc assessment.
[2024-10-03 21:20] LABS: Glucose - Point of Care 165 mg/dl (70-99)
[2024-10-03] MEDS: ZESTRIL 40 MG PO (22:19)
[2024-10-03] MEDS: LANTUS 0.14 UNITS SC (22:19)
[2024-10-04] VITALS (7 sets, daily range): BP systolic 127–140; BP diastolic 54–62; PULSE 89–91; O2SAT 87
[2024-10-04] MEDS: TYLENOL 650 MG PO (00:19)
--- NOTE | 2024-10-04 00:32 | PTCARENOTE ---
Provider contacted for increase temp. Tylenol administered. see EMR for specific values.
[2024-10-04] MEDS: ZOSYN 50 IV ×4 (04:44→21:19)
--- NOTE | 2024-10-04 05:07 | PTCARENOTE ---
Wound care completed to R toes
--- NOTE | 2024-10-04 07:13 | W.PN.VS ---
Today's Communication / Plan
-
Discussed with Dr. Monzon
Assessment/Plan
-
POD 1 diagnostic arteriogram
Plan:
-Groin site stable
-Limflow studies planned for Sunday
-After studies complete will follow-up with surgical plan
Subjective Data
-
Date of Service: October 04, 2024
Patient seen at bedside this a.m. Patient offers no complaints at this time. Patient resting comfortably in bed. With no events overnight
Objective Data
-
Vital Signs
Temp Pulse Resp BP Pulse Ox
98.5 F 74 18 135/57 96
10/04/24 03:16 10/04/24 03:16 10/04/24 03:16 10/04/24 03:16 10/04/24 03:16
Intake and Output
10/03/24 10/04/24 10/05/24
06:59 06:59 06:59
Intake Total 3325 / 3325 580 / 580
Balance 3325 / 3325 580 / 580
Intake:
Oral fluids 750 / 750 480 / 480
IV fluids (Total) 2100 / 2100 100 / 100
NSS 50 / 50
Zosyn 50 / 50
IV piggybacks 475 / 475
Other:
Number of approximated MODERATE 2 2
amounts of urine
Number of approximated LARGE 1
amounts of urine
Calcium 9.0 mg/dl (8.4-10.2) 10/03/24 05:47
Magnesium 1.8 mg/dl (1.6-2.3) 10/01/24 07:11
Total Bilirubin 1.0 mg/dl (0.2-1.3) 09/30/24 11:43
AST 25 U/L (14-36) 09/30/24 11:43
ALT 16 U/L (0-35) 09/30/24 11:43
Alkaline Phosphatase 101 U/L (38-126) 09/30/24 11:43
Total Protein 7.4 g/dl (6.3-8.2) 09/30/24 11:43
Albumin 4.3 g/dl (3.5-5.0) 09/30/24 11:43
Physical Exam
-
AAOx3
No tachypnea on room air
No tachycardia
Abdomen soft, nontender
Groin site clean, dry, intact, soft, flat
Bilateral feet warm and pink
[2024-10-04 07:14] LABS: Hematocrit 27.8 % (37.0-47.0); Hemoglobin 9.3 g/dL (12.0-16.0); Mean Corp Hgb Conc. 33.5 g/dL (33.0-37.0); Mean Corpuscular Hgb 29.6 pg (27.0-31.0); Mean Corpuscular Volume 88.5 fL (81.0-99.0); Platelet Count 197 10^3/uL (130-400); Red Blood Cell Count 3.14 10^6/uL (4.20-5.40); Red Cell Dist. Width 11.9 % (11.5-14.5)
[2024-10-04 07:33] LABS: Glucose - Point of Care 212 mg/dl (70-99)
[2024-10-04 08:00] LABS: Blood Urea Nitrogen 19 mg/dl (7-17); Calcium 8.6 mg/dl (8.4-10.2); Carbon Dioxide 23 mmol/L (22-30); Chloride 108 mmol/L (98-107); Estimated Creatinine Clearance 47 ml/min; Glucose 200 mg/dl (70-99); Potassium 4.5 mmol/L (3.5-5.1); Sodium 137 mmol/L (135-145); eGFR 49.92
[2024-10-04] MEDS: ZOFRAN 4 MG IV (08:14)
[2024-10-04] MEDS: NOVOLOG FLEXPEN 10 UNITS SC ×2 (08:27→12:20)
[2024-10-04] MEDS: NOVOLOG FLEXPEN-MODERATE RESISTANCE 3 UNITS SC ×2 (08:28→12:20)
[2024-10-04] MEDS: LANTUS 0.07 UNITS SC (08:29)
[2024-10-04] MEDS: LOW STRENGTH ASPIRIN 81 MG PO (09:59)
[2024-10-04] MEDS: NORVASC 10 MG PO (09:59)
[2024-10-04 11:49] LABS: Glucose - Point of Care 210 mg/dl (70-99)
--- NOTE | 2024-10-04 14:15 | W.PN.HOSP.TC ---
Today's Communication/Plan
-
await vascular/podiatry plans for amputation of toe
Assessment / Plan
Assessment / Plan
pt is a 68 year old female
Gangrene of right 3rd toe with osteomyelitis and Sepsis on admission- Wound gram stain polymicrobial; wound culture: klebsiella, staph aureus, diptheroids- MRI with evidence of osteonecrosis of of 3rd toe proximal, middle, and distal phalanx- ID
following, appreciate recs. Continue IV zosyn, vanc (pharmacy dosing)- Podiatry following, appreciate recs. Will require amputation-- awaiting vascular surgery intervention --Limflow studies planned for Sunday
Peripheral arterial disease- New diagnosis this admission given diminished pulses, severely reduced TBI of RLE- Vascular surgery consulted, appreciate recs--s/p arteriogram
Diabetes, type I with neuropathy- A1C 7.3. BS remain elevated- Continue accuchecks, BID basal insulin, AC novolog/aspart, ISS- Diabetes management following, appreciate recs.
Anemia likely of chronic disease- Unknown hgb baseline. Hgb overall stable, no evidence of acute/chronic bleeding.
Suspected CKD3a secondary to diabetic neuropathy- Unknown baseline, likely 1.1-1.2.
Stress due to hospitalization- Denies history of anxiety. Mood otherwise stable. Ativan 0.5mg q8h prn ordered; has not required any.
Essential Hypertension- Continue home amlodipine 10mg qD. Hold hctz
Hyperlipidemia- Continue home atorvastatin 80mg qPM, ASA 81mg qD.
History of CVA (2017)
Obesity (BMI 30.1) due to excess calories
Code status: Full
DVT proph-- Lovenox
Anticipated Discharge: > 48 hours
Subjective/Interval History
-
Date of Service: October 04, 2024
pt without c/o--
son at bedside concerned about high blood sugars and that we need to control them as she is off her usual routine
Objective Data
-
Labs:
Laboratory Results
10/04/24
06:38
WBC 8.0
Hgb 9.3 L
Hct 27.8 L
Plt Count 197
Sodium 137
Potassium 4.5
Chloride 108 H
Carbon Dioxide 23
BUN 19 H
Creatinine 1.2 H
Glucose 200 H
Calcium 8.6
Vital Signs:
max temp for 24 hours
10/04/24
00:15
Temp 100.8 F H
Vital Signs
Temp Pulse Resp BP Pulse Ox
99.7 F 82 18 142/80 97
10/04/24 07:30 10/04/24 09:59 10/04/24 07:30 10/04/24 09:59 10/04/24 09:00
I&O
10/03/24 10/04/24 10/05/24
06:59 06:59 06:59
Intake Total 3325 / 3325 580 / 580
Balance 3325 / 3325 580 / 580
Review of Systems
-
All other systems: Reviewed and negative
Physical Exam
-
General: Well Developed, Well Nourished and No Apparent Distress
HEENT: Normocephalic and Atraumatic
Respiratory: Clear to Auscultation; Negative Wheezes or Rhonchi
Cardiac: Regular Rhythm, S1/S2 and Murmur
GI: Soft, Nontender, Nondistended and Normal Bowel Sounds
Musculoskeletal: No Clubbing, No Edema and Other (black gangrenous 3rd toe on right foot)
Psych: Calm
[2024-10-04 16:05] LABS: Glucose - Point of Care 97 mg/dl (70-99)
[2024-10-04] MEDS: NOVOLOG FLEXPEN 12 UNITS SC (16:07)
[2024-10-04] MEDS: NOVOLOG FLEXPEN-MODERATE RESISTANCE SC (16:07)
[2024-10-04] MEDS: LIPITOR 80 MG PO (17:43)
[2024-10-04] MEDS: LOVENOX 40 MG SC (17:43)
[2024-10-04] MEDS: ZESTRIL 40 MG PO (21:19)
[2024-10-04] MEDS: ULTRAM 50 MG PO (21:19)
[2024-10-04] MEDS: LANTUS 0.16 UNITS SC (21:24)
[2024-10-04 21:25] LABS: Glucose - Point of Care 183 mg/dl (70-99)
[2024-10-05] MEDS: ZOSYN 50 IV ×4 (04:23→22:02)
[2024-10-05 06:05] LABS: Hematocrit 27.1 % (37.0-47.0); Hemoglobin 8.9 g/dL (12.0-16.0); Mean Corp Hgb Conc. 32.8 g/dL (33.0-37.0); Mean Corpuscular Hgb 29.1 pg (27.0-31.0); Mean Corpuscular Volume 88.6 fL (81.0-99.0); Mean Platelet Volume 10.3 fL (7.4-10.4); Platelet Count 230 10^3/uL (130-400); Red Blood Cell Count 3.06 10^6/uL (4.20-5.40); Red Cell Dist. Width 11.9 % (11.5-14.5); White Blood Cell Count 9.1 10^3/uL (4.8-10.8)
[2024-10-05 06:44] LABS: Blood Urea Nitrogen 25 mg/dl (7-17); Calcium 8.9 mg/dl (8.4-10.2); Carbon Dioxide 20 mmol/L (22-30); Chloride 105 mmol/L (98-107); Estimated Creatinine Clearance 47 ml/min; Glucose 207 mg/dl (70-99); Magnesium 1.9 mg/dl (1.6-2.3); Sodium 137 mmol/L (135-145); eGFR 49.92
[2024-10-05 07:39] VITALS: BP 122/55
[2024-10-05 08:15] LABS: Glucose - Point of Care 219 mg/dl (70-99)
[2024-10-05] MEDS: NORVASC 10 MG PO (08:43)
[2024-10-05] MEDS: LOW STRENGTH ASPIRIN 81 MG PO (08:43)
[2024-10-05] MEDS: NOVOLOG FLEXPEN 12 UNITS SC ×3 (08:43→17:25)
[2024-10-05] MEDS: LANTUS 0.09 UNITS SC (08:43)
[2024-10-05] MEDS: NOVOLOG FLEXPEN-MODERATE RESISTANCE 3 UNITS SC ×2 (08:44→12:47)
[2024-10-05] MEDS: DRISDOL (VITAMIN D2) 50000 UNITS PO (08:50)
--- NOTE | 2024-10-05 11:46 | CM ---
Chart reviewed and plan is to home no needs when stable.
Plan; Home no needs.
--- NOTE | 2024-10-05 12:12 | W.PN.HOSP.TC ---
Today's Communication/Plan
-
await vascular studies
Assessment / Plan
Assessment / Plan
pt is a 68 year old female
Gangrene of right 3rd toe with osteomyelitis and Sepsis on admission- Wound gram stain polymicrobial; wound culture: klebsiella, staph aureus, diptheroids- MRI with evidence of osteonecrosis of of 3rd toe proximal, middle, and distal phalanx- ID
following, appreciate recs. Continue IV zosyn, vanc (pharmacy dosing)- Podiatry following, appreciate recs. Will require amputation-- awaiting vascular surgery intervention --Limflow studies planned for Sunday
Peripheral arterial disease- New diagnosis this admission given diminished pulses, severely reduced TBI of RLE- Vascular surgery consulted, appreciate recs--s/p arteriogram
Diabetes, type 2 with neuropathy- A1C 7.3. BS remain elevated- Continue accuchecks, BID basal insulin, AC novolog/aspart, ISS- Diabetes management following, appreciate recs.
Anemia likely of chronic disease- Unknown hgb baseline. Hgb overall stable, no evidence of acute/chronic bleeding.
Suspected CKD3a secondary to diabetic neuropathy- Unknown baseline, likely 1.1-1.2.
Stress due to hospitalization- Denies history of anxiety. Mood otherwise stable. Ativan 0.5mg q8h prn ordered; has not required any.
Essential Hypertension- Continue home amlodipine 10mg qD. Hold hctz
Hyperlipidemia- Continue home atorvastatin 80mg qPM, ASA 81mg qD.
History of CVA (2017)
Obesity (BMI 30.1) due to excess calories
Code status: Full
DVT proph-- Lovenox
Anticipated Discharge: > 48 hours
Subjective/Interval History
-
Date of Service: October 05, 2024
pt waiting for studies tomorrow
Objective Data
-
Labs:
Laboratory Results
10/05/24
04:40
WBC 9.1
Hgb 8.9 L
Hct 27.1 L
Plt Count 230
Sodium 137
Potassium 4.0
Chloride 105
Carbon Dioxide 20 L
BUN 25 H
Creatinine 1.2 H
Glucose 207 H
Calcium 8.9
Vital Signs:
max temp for 24 hours
10/04/24
15:38
Temp 98.3 F
Vital Signs
Temp Pulse Resp BP Pulse Ox
98.1 F 83 18 122/55 92
10/05/24 07:39 10/05/24 08:43 10/05/24 07:39 10/05/24 08:43 10/05/24 08:50
I&O
10/04/24 10/05/24 10/06/24
06:59 06:59 06:59
Intake Total 580 / 580 700 / 700
Balance 580 / 580 700 / 700
Review of Systems
-
All other systems: Reviewed and negative
Physical Exam
-
General: Well Developed, Well Nourished and No Apparent Distress
HEENT: Normocephalic and Atraumatic
Respiratory: Clear to Auscultation; Negative Wheezes or Rhonchi
Cardiac: Regular Rhythm, S1/S2 and Murmur
GI: Soft, Nontender, Nondistended and Normal Bowel Sounds
Musculoskeletal: No Clubbing, No Cyanosis and No Edema
[2024-10-05 12:34] LABS: Glucose - Point of Care 200 mg/dl (70-99)
[2024-10-05 15:16] VITALS: BP 130/59
[2024-10-05 16:38] LABS: Glucose - Point of Care 163 mg/dl (70-99)
[2024-10-05] MEDS: NOVOLOG FLEXPEN-MODERATE RESISTANCE 1 UNITS SC (17:25)
[2024-10-05] MEDS: LIPITOR 80 MG PO (17:25)
[2024-10-05] MEDS: LOVENOX SC (17:28)
[2024-10-05 17:48] LABS: Glucose - Point of Care 176 mg/dl (70-99)
[2024-10-05 21:23] LABS: Glucose - Point of Care 206 mg/dl (70-99)
[2024-10-05] MEDS: LANTUS 0.16 UNITS SC (22:03)
[2024-10-05] MEDS: ULTRAM 50 MG PO (22:05)
[2024-10-05] MEDS: ZESTRIL 40 MG PO (22:13)
[2024-10-05 23:07] VITALS: BP 142/59
[2024-10-06] MEDS: ZOSYN 50 IV ×4 (04:25→21:02)
[2024-10-06 05:54] LABS: Glucose - Point of Care 176 mg/dl (70-99)
[2024-10-06 06:22] LABS: Hematocrit 27.4 % (37.0-47.0); Hemoglobin 9.3 g/dL (12.0-16.0); Mean Corp Hgb Conc. 33.9 g/dL (33.0-37.0); Mean Corpuscular Hgb 29.2 pg (27.0-31.0); Mean Corpuscular Volume 86.2 fL (81.0-99.0); Mean Platelet Volume 10.1 fL (7.4-10.4); Platelet Count 226 10^3/uL (130-400); Red Blood Cell Count 3.18 10^6/uL (4.20-5.40); White Blood Cell Count 7.8 10^3/uL (4.8-10.8)
[2024-10-06 07:00] LABS: Blood Urea Nitrogen 26 mg/dl (7-17); Calcium 9.2 mg/dl (8.4-10.2); Carbon Dioxide 22 mmol/L (22-30); Chloride 109 mmol/L (98-107); Estimated Creatinine Clearance 51 ml/min; Glucose 161 mg/dl (70-99); Potassium 3.8 mmol/L (3.5-5.1); Sodium 139 mmol/L (135-145); eGFR 55.42
[2024-10-06 07:40] VITALS: BP 136/57
[2024-10-06 08:19] LABS: Glucose - Point of Care 153 mg/dl (70-99)
--- NOTE | 2024-10-06 08:43 | PN.DE.MGMTRT ---
Insulin Management
- -
10/06/2024 Diabetes management Follow up
Patient admitted 09/30 with R toe wound. PMH: T1DM, HTN, CVA. Prior to admission was taking 8 units NovoLog AC with Lantus 7 units in AM and 6 units @ hs. States she has had diabetes since age 32 (originally had gestational diabetes then type 1).
Sees Dr. Tyler, [facility]. Uses Mimi 3 CGM. A1C 7.3% cr 1.2, eGFR 49.92.
Patient is awake alert and oriented, sitting up in chair, offers no complaints, able to discuss diabetes care. Lots of family members at bedside
Patient is NPO this morning for procedure to right toe Had arteriogram on 10/03.
10/05 insulin doses were adjusted due to hyperglycemia. Pt received 16 units Lantus @ hs, FBG 161 (V), 176 POC, Will increase AM Lantus from 9 units to 10 units and HS dose from 16 units to 17 units @ HS.
Premeal glucose range 163 to 219, requiring 1-3 units of corrective insulin. Will increase NovoLog AC to 14 units and change corrective from moderate to low.
Discussed with nurse, instructed to use corrective insulin while NPO. Will cont to follow.
Diabetes History
- -
Type of Diabetes: 2 requiring insulin
Pre-Admission Diabetes Regimen
10/06/24
05:40
Creatinine 1.1 H
Lab Results
Hemoglobin A1c 7.3 % (4.0-5.6) H 10/01/24 07:11
Insulin Pump Settings
IP Diabetes Regimen
10/05/24 10/05/24 10/05/24
12:33 16:36 17:47
Glucose
POC Glucose 200 H 163 H 176 H
10/05/24 10/06/24 10/06/24
21:21 05:40 05:53
Glucose 161 H
POC Glucose 206 H 176 H
10/06/24
08:18
Glucose
POC Glucose 153 H
Meal type: Lunch
Amount consumed: 100%
Patient Education
[2024-10-06] MEDS: LOW STRENGTH ASPIRIN 81 MG PO (08:48)
[2024-10-06] MEDS: NORVASC 10 MG PO (08:48)
[2024-10-06] MEDS: NOVOLOG FLEXPEN SC ×2 (09:00→12:30)
[2024-10-06] MEDS: NOVOLOG FLEXPEN-MODERATE RESISTANCE 1 UNITS SC (09:06)
[2024-10-06] MEDS: LANTUS 0.09 UNITS SC (09:06)
--- NOTE | 2024-10-06 09:20 | W.PN.HOSP.TC ---
Addendum entered and electronically signed by Ayleen Narayan MD 10/06/24 16:09:
I saw and evaluated the patient independently. I reviewed the resident�s note and agree with findings and plan as documented by Dr. Mancilla.
GENERAL: well developed, well nourished, female in no apparent distress
HEENT: NC/AT
HEART: regular rate and rhythm, +S1, +S2, 3/6 NINA
LUNGS : clear to auscultation bilaterally
ABDOM: soft, nontender, nondistended, + bowel sounds
EXT: no cyanosis, clubbing, or edema--foot wrapped
NEUROLOGIC: grossly intact
Gangrene of right 3rd toe with osteomyelitis and Sepsis on admission- Wound gram stain polymicrobial; wound culture: klebsiella, staph aureus, diphtheroids- MRI with evidence of osteonecrosis of of 3rd toe proximal, middle, and distal phalanx- ID
following, appreciate recs. Continue IV zosyn, ID suggesting Augmentin x 2-3 weeks at discharge---Podiatry following, was to be made n.p.o. today for possible toe amputation--podiatry has rescinded that and now states that the patient can go home on
antibiotics as per ID with further definitive care as an outpatient--vascular surgery also working on timing of an endovascular procedure--based on all of this, patient has been cleared for discharge but prefers to wait until tomorrow-- Will require
amputation-- awaiting vascular surgery intervention
Peripheral arterial disease- New diagnosis this admission given diminished pulses, severely reduced TBI of RLE- Vascular surgery consulted, appreciate recs--s/p arteriogram
Diabetes, type 2 with neuropathy- A1C 7.3. BS remain elevated- Continue accuchecks, BID basal insulin, AC novolog/aspart, ISS- Diabetes management following, appreciate recs.
Anemia likely of chronic disease- Unknown hgb baseline. Hgb overall stable, no evidence of acute/chronic bleeding.
Suspected CKD3a secondary to diabetic neuropathy- Unknown baseline, likely 1.1-1.2.
Stress due to hospitalization- Denies history of anxiety. Mood otherwise stable. Ativan 0.5mg q8h prn ordered; has not required any.
Essential Hypertension- Continue home amlodipine 10mg-- would restart hctz
Hyperlipidemia- Continue home atorvastatin 80mg, ASA 81mg
History of CVA (2018)
Obesity (BMI 30.1) due to excess calories
Code status-- Full
DVT proph-- Lovenox
Original Note:
Today's Communication/Plan
-
Plan TBD pending results of limflow eval.
Assessment / Plan
Assessment / Plan
68yo F with PMH diabetes type I, htn, hld who presents to ED for RLE swelling and discoloration of toe, which progressed over past week. She was sent to ED by her wind turbine electrical engineer. On presentation to ED, her right 3rd toe was found to be
gangrenous with purulent drainage. Wound culture obtained, and started on vancomycin and cefepime. Peripheral ultrasound notable for severely reduced TBI of RLE, negative for DVTs. Foot xray with no evidence of osteomyelitis.
Gangrene of right 3rd toe with osteomyelitis and Sepsis on admission
- Wound gram stain polymicrobial; wound culture: klebsiella, staph aureus, diptheroids
- MRI with evidence of osteonecrosis of of 3rd toe proximal, middle, and distal phalanx
- ID following, appreciate recs. Continue IV zosyn per ID.
- Podiatry following, appreciate recs. Will require amputation-- Amputation timing to be discussed with podiatry and vascular surg, pending limflow US eval today.
Peripheral arterial disease- New diagnosis this admission given diminished pulses, severely reduced TBI of RLE- Vascular surgery consulted, appreciate recs--s/p arteriogram. Will be for limflow US eval today.
Diabetes, type 2 with neuropathy- A1C 7.3. BS remain elevated- Continue accuchecks, BID basal insulin, AC novolog/aspart, ISS- Diabetes management following, appreciate recs.
Anemia likely of chronic disease- Unknown hgb baseline. Hgb overall stable, no evidence of acute/chronic bleeding.
Suspected CKD3a secondary to diabetic neuropathy- Unknown baseline, likely 1.1-1.2.
Stress due to hospitalization- Denies history of anxiety. Mood otherwise stable. Ativan 0.5mg q8h prn ordered; has not required any.
Essential Hypertension- Continue home amlodipine 10mg qD. Hold hctz
Hyperlipidemia- Continue home atorvastatin 80mg qPM, ASA 81mg qD.
History of CVA (2018)
Obesity (BMI 30.1) due to excess calories
Code status: Full
DVT proph-- Lovenox
Diet: NPO
Dispo planning: anticipate DC home pending clinical course
Anticipated Discharge: 24 - 48 hours
Subjective/Interval History
-
Date of Service: October 06, 2024
No acute events overnight. Reports toe pain that is worse in the evening/night, well-controlled with tramadol. Otherwise no complaints, ROS negative. Ambulating halls with walker. Currently n.p.o., otherwise tolerating oral diet.
Objective Data
-
Labs:
Laboratory Results
10/06/24
05:40
WBC 7.8
Hgb 9.3 L
Hct 27.4 L
Plt Count 226
Sodium 139
Potassium 3.8
Chloride 109 H
Carbon Dioxide 22
BUN 26 H
Creatinine 1.1 H
Glucose 161 H
Calcium 9.2
09/30/24 11:45 Toe Wound Culture - Final
Klebsiella oxytoca
S aureus-Methicillin Sensitive
Diptheroids
09/30/24 11:45 Toe Gram Stain - Final
Vital Signs:
Vital Signs
Temp Pulse Resp BP Pulse Ox
98.5 F 74 20 136/57 96
10/06/24 07:40 10/06/24 08:48 10/06/24 07:40 10/06/24 08:48 10/06/24 07:40
I&O
10/05/24 10/06/24 10/07/24
06:59 06:59 06:59
Intake Total 700 / 700 240 / 240
Balance 700 / 700 240 / 240
Review of Systems
-
History Source: Patient
All other systems: Reviewed and negative
Physical Exam
-
General: Well Developed, Well Nourished, No Apparent Distress and Conversant; Negative Fever, Chills or Sweats
HEENT: Normocephalic and Atraumatic
Respiratory: Clear to Auscultation and Non Labored Respirations; Negative Wheezes or Rhonchi
Cardiac: Regular Rhythm and S1/S2
GI: Soft, Nontender, Nondistended and Normal Bowel Sounds
Musculoskeletal: No Clubbing, No Cyanosis, Edema, Right Lower Extrem (+2) and Edema, Left Lower Extrem (trace)
Skin: Warm, Dry and Other (R foot with gangrenous 3rd toe, no drainage)
Neuro: Awake, Alert and Nonfocal/Grossly Intact
Psych: Calm and Intact Judgement/Insight
Data Reviewed
-
Diagnostic Radiology: Image personally visualized and interpreted, Report Reviewed by me and Discussed with Physician
Ultrasound: Report Reviewed by me
MRI: Report Reviewed by me
Labs: Labs Reviewed by me and Discussed with Physician
Old Records: Reviewed
--- NOTE | 2024-10-06 11:54 | W.PN.ID1 ---
Addendum entered and electronically signed by Celso Callahan DO 10/06/24 15:45:
I saw and evaluated the patient. I reviewed the resident�s note and agree with findings and plan as documented in the resident�s note.
Chart reviewed. Amputation of toe will be delayed until after there is attempt at limb salvage.
Currently toe appears to be drying.
Continue Zosyn while inpatient. At discharge, transition to Augmentin 875 mg p.o. twice daily for an additional 10 - 14 days.
Patient and family instructed on Betadine painting of the area, along with gauze applied between the toes.
They have been counseled to watch for any transition to wet gangrene
Original Note:
Date of Service
Date of Service: October 06, 2024
Today's Communication
continue antibiotics
Assessment / Plan
Right third toe gangrene
Leukocytosis
DM type I
PAD
Recommendations:
S/p right arteriogram.
Toe culture positive for Klebsiella oxytoca, MSSA, Diptheroids.
Discontinue vancomycin . Continue Zosyn.
Monitor white count temperature curve.
Await further recommendation from vascular and podiatry.
����������������������������������������������������������
Chief Complaint
-: Other (Right third toe gangrene)
Subjective / Review of Systems
Review of Systems: No Fever and No Chills
Vital Signs / Physical Exam
Vital Signs
Vital Signs
Temp Pulse Resp BP Pulse Ox
98.5 F 74 20 136/57 96
10/06/24 07:40 10/06/24 08:48 10/06/24 07:40 10/06/24 08:48 10/06/24 07:40
Physical Exam
Constitutional: No Acute Distress
Head: Normocephalic
Eyes: Pupils Equal and Pupils Round
Cardiovascular: Regular Rate and S1/S2
Pulmonary: Non Labored
Extremities: Edema (RLE)
Wound: Other (Right third toe black, wrinkled and with significant malodor.)
Objective Data
Lab Data
Lab Results
10/06/24 05:40
10/06/24 05:40
ESR 33 mm/hour (0-20) H 10/01/24 07:11
PT 13.3 Sec (11.4-14.6) 10/03/24 05:47
INR 0.96 10/03/24 05:47
APTT 36.4 Sec (23.4-35.0) H 10/03/24 05:47
Estimated Creat Clear 51 ml/min 10/06/24 05:40
Lactic Acid 1.2 mmol/L (0.7-2.0) 09/30/24 11:43
Total Bilirubin 1.0 mg/dl (0.2-1.3) 09/30/24 11:43
AST 25 U/L (14-36) 09/30/24 11:43
ALT 16 U/L (0-35) 09/30/24 11:43
Alkaline Phosphatase 101 U/L (38-126) 09/30/24 11:43
C-Reactive Protein 48.00 mg/L (0.0-10.00) H 10/01/24 07:11
Most recent labs reviewed.
Micro Results:
09/30/24 11:45 Wound Culture - Final
Toe Klebsiella oxytoca
S aureus-Methicillin Sensitive
Diptheroids
Gram Stain - Final
Imaging:
09/30/2024 Right lower extremity MRI: Abnormal third digit proximal, middle, and distal phalanx, as described, suspicious for osteonecrosis. Superimposed occult nondisplaced fractures involving the third proximal phalanx head and proximal diaphysis.
Slightly impacted intra-articular fracture involving the head of the first proximal phalanx. Subtle nondisplaced occult fracture involving the base of the second proximal phalanx.
09/30/2024 X-ray right foot: No convincing radiographic evidence for active osteomyelitis. No acute fracture or dislocation. There is scattered moderate osteoarthritic changes of the anterior phalangeal and first metatarsal joints. No erosions are
evident. Please see full dictation for additional detail.
09/30/2024 arterial ultrasound lower extremity with LESLIE: In the right lower extremity the ABIs are unmeasurable due to noncompressible arteries. TBI is severely reduced at 0.20. Tibial artery and small vessel occlusive disease is suspected. Please
see full dictation for additional detail.
[2024-10-06 12:25] LABS: Glucose - Point of Care 137 mg/dl (70-99)
[2024-10-06] MEDS: NOVOLOG FLEXPEN-LOW RESISTANCE SC (12:30)
--- NOTE | 2024-10-06 14:10 | CM ---
Addendum entered by Ledy Biggs 10/06/24 15:46:
Patient now for home with VN and possible antibiotics- PO, at this time per physician. Patient requested [facility] referral and would like to go home tomorrow. CM updated physician. CM will continue to follow for discharge planning needs.
Plan; home with [facility]; pending acceptance
Original Note:
Patient seen at bedside and patient family present. Patient is for possible surgery today. CM will continue to follow for discharge planning needs.
Plan; home with VN pending wound care/functional status.
--- NOTE | 2024-10-06 14:43 | W.PN.SURGUPD ---
Surgical Update
Surgical Update
68yo F with PMH diabetes type I, htn, hld who presents to for right 3rd toe gangrene in the setting of poor vascular exam
-Vascular surgery planning for further workup for possible DVA
-Will defer right foot surgical intervention pending vascular surgery findings
-OK for discharge from right foot perspective on antibiotics per ID recs
-Please order home nursing for dressing changes (betadine paint to right 3rd toe) 3x weekly
-Patient to follow up with myself at [facility] 1-2 weeks after discharge
--- NOTE | 2024-10-06 14:59 | W.PN.VS ---
Addendum entered and electronically signed by Edgar Garcia III, MD 10/06/24 16:16:
This patient was seen and examined in collaboration with CAMMIE Gallegos and CAMMIE Soto. I agree with the history and physical exam as well as the assessment and plan. I have the following additions:
Met with patient and her niece at bedside
Once again explained the results of the arteriogram showing tibial and small vessel occlusive disease
Reviewed her preoperative TADV vascular lab studies
She is a suitable candidate for arterialization of the deep veins. I explained that this would be my preferred strategy for limb preservation. Would like to continue with antibiotic suppression to treat soft tissue infection. Will discuss plan
with podiatry. Timing for TADV is in evolution but if patient has adequate source control and can be managed with oral antibiotics, she can be discharged and we can arrange for this procedure as an outpatient.
Explained this to the patient and her niece and they agree with this plan.
Signed:
Edgar Garcia III, MD
[facility]
[phone] (chos)
Original Note:
Today's Communication / Plan
-
Patient seen and examined at chairside with Dr. Edgar Garcia III, below plan reviewed with attending.
Assessment/Plan
-
POD 3 diagnostic arteriogram
Plan:
-Source control per podiatry
-Plan for TADV in evolution
Subjective Data
-
Date of Service: October 06, 2024
Patient seen and examined chairside, offers no complaints.
Objective Data
-
Vital Signs
Temp Pulse Resp BP Pulse Ox
98.5 F 74 20 136/57 96
10/06/24 07:40 10/06/24 08:48 10/06/24 07:40 10/06/24 08:48 10/06/24 08:30
Intake and Output
10/05/24 10/06/24 10/07/24
06:59 06:59 06:59
Intake Total 700 / 700 240 / 240
Balance 700 / 700 240 / 240
Intake:
Oral fluids 600 / 600 240 / 240
IV piggybacks 100 / 100
Other:
Number of approximated MODERATE 1 2
amounts of urine
Lab Results
10/06/24 05:40
10/06/24 05:40
Calcium 9.2 mg/dl (8.4-10.2) 10/06/24 05:40
Magnesium 2.0 mg/dl (1.6-2.3) 10/06/24 05:40
Total Bilirubin 1.0 mg/dl (0.2-1.3) 09/30/24 11:43
AST 25 U/L (14-36) 09/30/24 11:43
ALT 16 U/L (0-35) 09/30/24 11:43
Alkaline Phosphatase 101 U/L (38-126) 09/30/24 11:43
Total Protein 7.4 g/dl (6.3-8.2) 09/30/24 11:43
Albumin 4.3 g/dl (3.5-5.0) 09/30/24 11:43
Physical Exam
-
AAOx3
No tachypnea on room air
No tachycardia
[2024-10-06 15:05] VITALS: BP 141/63
[2024-10-06 15:37] LABS: Glucose - Point of Care 152 mg/dl (70-99)
[2024-10-06] MEDS: NOVOLOG FLEXPEN 14 UNITS SC (15:49)
[2024-10-06] MEDS: NOVOLOG FLEXPEN-LOW RESISTANCE 1 UNITS SC (15:50)
[2024-10-06] MEDS: LIPITOR 80 MG PO (17:38)
[2024-10-06] MEDS: LOVENOX SC (17:40)
[2024-10-06] MEDS: ZESTRIL 40 MG PO (20:48)
[2024-10-06 21:09] LABS: Glucose - Point of Care 228 mg/dl (70-99)
[2024-10-06] MEDS: LANTUS 0.17 UNITS SC (21:09)
[2024-10-06] MEDS: MELATONIN 5 MG PO (21:37)
[2024-10-06 23:04] VITALS: BP 132/59
[2024-10-07] MEDS: ZOSYN 50 IV ×2 (03:57→10:41)
[2024-10-07 07:37] LABS: Hematocrit 28.4 % (37.0-47.0); Hemoglobin 9.4 g/dL (12.0-16.0); Mean Corp Hgb Conc. 33.1 g/dL (33.0-37.0); Mean Corpuscular Volume 87.7 fL (81.0-99.0); Platelet Count 224 10^3/uL (130-400); Red Blood Cell Count 3.24 10^6/uL (4.20-5.40); Red Cell Dist. Width 12.1 % (11.5-14.5); White Blood Cell Count 7.6 10^3/uL (4.8-10.8)
[2024-10-07 07:38] VITALS: BP 138/62
[2024-10-07 08:09] LABS: Blood Urea Nitrogen 18 mg/dl (7-17); Calcium 9.4 mg/dl (8.4-10.2); Carbon Dioxide 23 mmol/L (22-30); Chloride 110 mmol/L (98-107); Estimated Creatinine Clearance 51 ml/min; Glucose 234 mg/dl (70-99); Magnesium 1.9 mg/dl (1.6-2.3); Potassium 4.2 mmol/L (3.5-5.1); Sodium 140 mmol/L (135-145); eGFR 55.42
[2024-10-07 08:17] LABS: Glucose - Point of Care 239 mg/dl (70-99)
[2024-10-07] MEDS: LOW STRENGTH ASPIRIN 81 MG PO (08:44)
[2024-10-07] MEDS: NORVASC 10 MG PO (08:45)
[2024-10-07] MEDS: LANTUS 0.1 UNITS SC (08:45)
[2024-10-07] MEDS: NOVOLOG FLEXPEN 14 UNITS SC ×2 (08:46→13:21)
[2024-10-07] MEDS: NOVOLOG FLEXPEN-LOW RESISTANCE 2 UNITS SC ×2 (08:47→13:21)
--- NOTE | 2024-10-07 09:17 | PN.DE.MGMTRT ---
Insulin Management
- -
10/07/2024 Diabetes management Follow up
Patient admitted 09/30 with R toe wound. PMH: T1DM, HTN, CVA. Prior to admission was taking 8 units NovoLog AC with Lantus 7 units in AM and 6 units @ hs. States she has had diabetes since age 32 (originally had gestational diabetes then type 1).
Sees Dr. Tyler, [place] [facility]. Uses Mimi 3 CGM. A1C 7.3% cr 1.2, eGFR 49.92.
Patient is awake alert and oriented, sitting up in chair, offers no complaints, able to discuss diabetes care.
10/06 insulin doses were adjusted due to hyperglycemia. Pt received 17 units Lantus @ hs, pre meal range 137 to 228 FBG 239. AM Lantus increased from 9 units to 10 units and HS dose from 17 units to 20 units @ HS.
Will continue NovoLog AC to 14 units and change corrective from moderate to low.
Discussed with nurse Patient for possible discharge and follow up as outpatient.
Will cont to follow.
Diabetes History
- -
Type of Diabetes: 2 requiring insulin
Pre-Admission Diabetes Regimen
10/07/24
07:22
Creatinine 1.1 H
Lab Results
Hemoglobin A1c 7.3 % (4.0-5.6) H 10/01/24 07:11
Insulin Pump Settings
IP Diabetes Regimen
10/06/24 10/06/24 10/06/24
12:24 15:36 21:07
Glucose
POC Glucose 137 H 152 H 228 H
10/07/24 10/07/24
07:22 08:15
Glucose 234 H
POC Glucose 239 H
Meal type: Lunch
Meal type: Breakfast
Amount consumed: 100%
Patient Education
--- NOTE | 2024-10-07 10:22 | W.PN.HOSP.TC ---
Addendum entered and electronically signed by Ayleen Narayan MD 10/07/24 19:26:
I saw and evaluated the patient independently. I reviewed the resident�s note and agree with findings and plan as documented by Dr. Mancilla.
GENERAL: well developed, well nourished, female in no apparent distress
HEENT: NC/AT
HEART: regular rate and rhythm, +S1, +S2, 3/6 NINA
LUNGS : clear to auscultation bilaterally
ABDOM: soft, nontender, nondistended, + bowel sounds
EXT: no cyanosis, clubbing, or edema--foot wrapped
NEUROLOGIC: grossly intact
Gangrene of right 3rd toe with osteomyelitis and Sepsis on admission- Wound gram stain polymicrobial; wound culture: klebsiella, staph aureus, diphtheroids- MRI with evidence of osteonecrosis of of 3rd toe proximal, middle, and distal phalanx- ID
following, appreciate recs. Continue IV zosyn, ID suggesting Augmentin x 2 weeks at discharge---Podiatry following, was to be made n.p.o. today for possible toe amputation--podiatry has rescinded that and now states that the patient can go home on
antibiotics as per ID with further definitive care as an outpatient--vascular surgery also working on timing of an endovascular procedure--based on all of this, patient has been cleared for discharge -- Will require amputation-- awaiting vascular
surgery intervention
Peripheral arterial disease- New diagnosis this admission given diminished pulses, severely reduced TBI of RLE- Vascular surgery consulted, appreciate recs--s/p arteriogram
Diabetes, type 2 with neuropathy- A1C 7.3. BS remain elevated- Continue accuchecks, BID basal insulin, AC novolog/aspart, ISS- Diabetes management following, appreciate recs.
Anemia likely of chronic disease- Unknown hgb baseline. Hgb overall stable, no evidence of acute/chronic bleeding.
Suspected CKD3a secondary to diabetic neuropathy- Unknown baseline, likely 1.1-1.2.
Stress due to hospitalization- Denies history of anxiety. Mood otherwise stable. Ativan 0.5mg q8h prn ordered; has not required any.
Essential Hypertension- Continue home amlodipine 10mg-- would restart hctz
Hyperlipidemia- Continue home atorvastatin 80mg, ASA 81mg
History of CVA (2018)
Obesity (BMI 30.1) due to excess calories
Code status-- Full
DVT proph-- Lovenox
Original Note:
Today's Communication/Plan
-
Discharge home
Assessment / Plan
Assessment / Plan
68yo F with H diabetes type I, htn, hld who presents to ED for RLE swelling and discoloration of toe, which progressed over past week. She was sent to ED by her automotive specialty technician. On presentation to ED, her right 3rd toe was found to be
gangrenous with purulent drainage. Wound culture obtained, and started on vancomycin and cefepime. Peripheral ultrasound notable for severely reduced TBI of RLE, negative for DVTs. Foot xray with no evidence of osteomyelitis.
Gangrene of right 3rd toe with osteonecrosis and Sepsis on admission
- Wound gram stain polymicrobial; wound culture: klebsiella, staph aureus, diptheroids
- MRI with evidence of osteonecrosis of of 3rd toe proximal, middle, and distal phalanx
- ID following, appreciate recs. Will discharge with 14 days of Augmentin 875 p.o. twice daily.
- Podiatry following, appreciate recs. Will follow-up with podiatry outpatient, and have eventual amputation--timing TBD pending outpatient vascular limflow.
-Stable for discharge home today. Will follow-up with podiatry for amputation as above.
-Plan discussed with patient and family at bedside, they are all in agreement.
Peripheral arterial disease- New diagnosis this admission given diminished pulses, severely reduced TBI of RLE- Vascular surgery consulted, appreciate recs--s/p arteriogram and limflow ultrasound. Per vascular surgery, she is a candidate for
arterialization for hopeful limb preservation and will follow-up with vascular surgery outpatient.
Diabetes, type 1 with neuropathy- A1C 7.3. BS remain elevated- Continue accuchecks, BID basal insulin, AC novolog/aspart, ISS- Diabetes management following, appreciate recs. Reviewed her new insulin regimen with her this morning, as well as that
her insulin requirements may go back to what they were prior to this admission once her toe is amputated and infection/inflammation resolved. Continue to monitor Accu-Cheks at home, follow-up with PCP, follow-up with endocrinology as needed.
Anemia likely of chronic disease- Unknown hgb baseline. Hgb overall stable, no evidence of acute/chronic bleeding.
Suspected CKD3a secondary to diabetic neuropathy- Unknown baseline, likely 1.1-1.2.
Stress due to hospitalization- Denies history of anxiety. Mood otherwise stable. Ativan 0.5mg q8h prn ordered; has not required any. She remains in good spirits, looking forward to discharge home.
Essential Hypertension- Continue home amlodipine 10mg qD. Hold hctz until seen by PCP.
Hyperlipidemia- Continue home atorvastatin 80mg qPM, ASA 81mg qD.
History of CVA (2017)
Obesity (BMI 30.1) due to excess calories
Code status: Full
DVT proph-- Lovenox
Diet: Diabetic, low-cholesterol
Dispo planning: Discharge home today with VN
Anticipated Discharge: Today
Subjective/Interval History
-
Date of Service: October 07, 2024
No acute events overnight. Pain well-controlled, did not require tramadol overnight. She feels well and desires discharge home. She is able to ambulate using a walker. She already has a walker at home.
Objective Data
-
Labs:
Laboratory Results
10/07/24
07:22
WBC 7.6
Hgb 9.4 L
Hct 28.4 L
Plt Count 224
Sodium 140
Potassium 4.2
Chloride 110 H
Carbon Dioxide 23
BUN 18 H
Creatinine 1.1 H
Glucose 234 H
Calcium 9.4
Vital Signs:
Vital Signs
Temp Pulse Resp BP Pulse Ox
98.4 F 71 18 138/62 97
10/07/24 07:38 10/07/24 08:45 10/07/24 07:38 10/07/24 08:45 10/07/24 07:38
I&O
10/06/24 10/07/24 10/08/24
06:59 06:59 06:59
Intake Total 240 / 240 820 / 820
Balance 240 / 240 820 / 820
Review of Systems
-
History Source: Patient
All other systems: Reviewed and negative
Physical Exam
-
General: Well Developed, Well Nourished, No Apparent Distress and Conversant; Negative Fever, Chills or Sweats
HEENT: Normocephalic and Atraumatic
Respiratory: Clear to Auscultation and Non Labored Respirations; Negative Wheezes or Rhonchi
Cardiac: Regular Rhythm and S1/S2
GI: Soft, Nontender, Nondistended and Normal Bowel Sounds
Musculoskeletal: No Clubbing, No Cyanosis, Edema, Right Lower Extrem (+2) and Edema, Left Lower Extrem (trace)
Skin: Warm, Dry and Other (R foot with gangrenous 3rd toe, no drainage)
Neuro: Awake, Alert and Nonfocal/Grossly Intact
Psych: Calm
Data Reviewed
-
Diagnostic Radiology: Image personally visualized and interpreted, Report Reviewed by me and Discussed with Physician
Ultrasound: Report Reviewed by me
MRI: Report Reviewed by me
Labs: Labs Reviewed by me and Discussed with Physician
Old Records: Reviewed
--- NOTE | 2024-10-07 11:01 | VNURNOTE ---
Home health liaison met with patient to discuss [facility] services, visit scheduling/frequency, homebound status and pet policy. Patient understands home visits will be 1-3 times a week to assess and teach medical management. Patient aware to take home
extra wound care supplies that are at the bedside so that patient will have supplies to start with when she gets home. Patient aware a visiting nurse will contact her for start of care within 1-2 days after discharge from . [facility] Referral completed
in care port.
[2024-10-07 12:18] LABS: Glucose - Point of Care 213 mg/dl (70-99)
--- NOTE | 2024-10-07 13:27 | CM ---
Patient seen at bedside with physicians on [facility]. patient completed IMM and signed form placed on chart. Patient for discharge home today with [facility] to follow. CM will continue to follow for discharge planning needs.
Plan; home with [facility]
[2024-10-07 14:30] VITALS: BP 153/70
--- NOTE | 2024-10-07 18:21 | W.DCSUMMARY ---
Addendum entered and electronically signed by Ayleen Narayan MD 10/07/24 19:28:
Read, reviewed, and agree. See same day progress note for additional details. Time spent coordinating care, DC planning, review of DC plan of care with resident, transition of care, review of records in EMR, med rec, consults, notes, d/w
consultants, nursing, family, and CM = 33 minutes
Original Note:
Discharge Summary
Discharge Data
Date of Admission: 09/30/24
Date of Discharge: 10/07/24
-
Pending Results: No
Hospital Course
Discharging Physician : Dr. Mancilla/Dr. Narayan
Disposition : Home with VN
Primary care physician : Farhat Riojas
Principal Discharge diagnosis :
Gangrene of right 3rd toe
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
Peripheral arterial disease
Anemia, likely of chronic disease
Suspected chronic kidney disease 3a secondary to diabetes
Chronic Discharge diagnosis :
Essential hypertension
Hyperlipidemia
Diabetes type 1, with neuropathy
History of cerebrovascular accident 2018
Hospital Course : Presented to ED for swelling of her right foot and discoloration of third toe which had progressed over the week. She initially saw her production counter, who sent her to the ED. On admission, her right third toe was gangrenous
with purulent, malodorous discharge. Podiatry and infectious disease was consulted. She had diminished pulses, severely reduced TBI of the right lower extremity, and vascular surgery was also consulted. Wound culture eventually grew klebsiella,
staph aureus, diptheroids. She was treated with IV antibiotics while inpatient, and will continue a 14-day course of oral Augmentin twice daily. While inpatient, vascular surgery performed right lower extremity arteriogram without
stenting/intervention. She did not require immediate source control of the infection, so surgery was deferred at this time. She will need eventual amputation; the timing and extent of her amputation is to be determined, pending vascular surgery
intervention/evaluation with the hope of improving distal blood flow and preserving more limb. Diabetes management was also consulted due to hyperglycemia requiring increased insulin regimen, which may improve after definitive treatment of toe.
Her creatinine was 1.1-1.2, presumably from chronic kidney disease as a complication of diabetes; her hydrochlorothiazide was held. Otherwise her chronic conditions remained stable. On day of discharge she was stable. She was discharged home with
VN and instructions for outpatient follow-up, return precautions.
Important imaging findings :
Foot x-ray 09/30/2024
IMPRESSION:
No convincing radiographic evidence for active osteomyelitis. No acute fracture or dislocation. Scattered moderate osteoarthritic changes of the interphalangeal and first metatarsophalangeal joints. No erosions are evident. No radiographic evidence
for inflammatory arthropathy. Scattered vascular calcifications.
Peripheral vascular ultrasound 09/30/2024
IMPRESSION:
1. No sonographic evidence for right lower extremity deep venous thrombosis.
2. Severe diffuse subcutaneous edema throughout the right lower leg.
Right foot MRI 09/30/2024
IMPRESSION:
Abnormal third digit proximal, middle, and distal phalanx, as described, suspicious for osteonecrosis. Superimposed occult nondisplaced fractures involving the third proximal phalanx head and proximal diaphysis.
Slightly impacted intra-articular fracture involving the head of the first proximal phalanx.
Subtle nondisplaced occult fracture involving the base of the second proximal phalanx.
No focal soft tissue collection or abscess.
Peripheral arterial ultrasound with LESLIE 09/30/2024
IMPRESSION:
RIGHT LOWER EXTREMITY: LESLIE unmeasurable due to noncompressible arteries. TBI severely reduced at 0.20. Arterial duplex examination reveals multiphasic waveforms from the common femoral artery through the popliteal artery with no focal velocity
elevations to suggest significant stenosis. Monophasic continuous Doppler waveforms are demonstrated in the posterior tibial artery and dorsalis pedis artery. Tibial artery and small vessel occlusive disease suspected.
LEFT LOWER EXTREMITY: LESLIE unmeasurable due to noncompressible arteries. TBI within normal limits at 0.81. Arterial duplex examination reveals multiphasic waveforms from the common femoral artery through the popliteal artery with no focal velocity
elevations to suggest significant stenosis. Multiphasic continuous Doppler waveforms are demonstrated in the posterior tibial artery and dorsalis pedis artery.
Procedure findings :
Arteriogram 10/03/2024
Operative Findings: L groin access. RLE angiogram. Patent inflow with primarily tibial disease. AT long-segment occlusion from above ankle to foot. Peroneal patent with bifurcation at ankle. PT patent with decent plantar floor. Accessed AT but
unable to cross occlusion. Retrograde access via R DP, but again unable to cross occlusion. No interventions performed, will assess limflow candidacy.
AORTO-ILIAC ARTERIOGRAM:
Aorta: Patent with no stenosis identified
Right common iliac artery: Patent with no stenosis identified
Right external iliac artery: Patent with no stenosis identified
Left common iliac artery: Patent with no stenosis identified
Left external iliac artery: Patent with no stenosis identified
RIGHT LOWER EXTREMITY:
Common femoral artery: Patent with no stenosis identified
Profunda femoral artery: Patent with no stenosis identified
Superficial femoral artery: Patent with no stenosis identified
Popliteal artery: Patent with no stenosis identified
Anterior tibial artery: Patent. No stenosis in the proximal and mid segment. Tapers distally and then occludes abruptly at the ankle. Heavily calcified. No meaningful distal reconstitution of the dorsalis pedis artery in the foot.
Tibioperoneal trunk: Patent
Peroneal artery: Patent to the ankle. Moderate stenosis in the mid to distal segment.
Posterior tibial artery: Patent. No significant stenosis identified. Crosses the ankle to form plantar branches which are heavily diseased.
*Significant small vessel disease is identified in the foot
Discharge Plan
-
Patient Disposition: Home with Home Care
Discharge Diagnosis/Procedures: Gangrene of right 3rd toe
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
Peripheral arterial disease
Diabetes type 1, with neuropathy
Anemia, likely of chronic disease
Suspected chronic kidney disease 3a secondary to diabetes
Essential hypertension
Hyperlipidemia
Condition: Fair
Diet: Low Cholesterol and Diabetic, Carb Controlled
Activity: As tolerated, With Walker and No strenuous activity
Driving Restrictions: Not until seen by your Dr
Bathing Restrictions: OK to Shower
Other Services: VN
Activity Restrictions/Additional Instructions:
Our vascular surgery office cap and stud machine operator will be contacting you to schedule your outpatient procedure of right lower extremity limflow. If you do not hear from them, please call the number provided in your discharge instructions.
Follow up with Podiatry at [facility] in 1-2 weeks. Their number has been provided in your discharge instructions.
Please continue wound care with visiting nursing. Apply betadine paint to right 3rd toe three times per week.
Continue to use a walker for stability when you are walking around.
Please go to Urgent Care or Emergency Room if...
Your foot changes in appearance, like worsening redness or swelling (or call Podiatry office)
New or worsening drainage from the skin
Worsening pain that is not improved with things like rest or tylenol (you can call Podiatry or your Primary Care Provider first for advice or new prescription medication)
Fevers, chills, feeling ill
Or you have any new concerns
You should also follow up with your Primary Care Provider within 1 week of hospital discharge.
Follow up with your Retail Account Manager as needed-- your insulin doses were increased in the hospital due to high sugars (this is probably because of the inflammation and infection of your foot). You may be able to lower your insulin once your toe is
fully treated.
Instructions: Preventing falls in adults, Foot care for people with diabetes
Stand Alone Forms: DC Instr - Vascular OR
Referrals:
Devan Riojas MD [Family Provider] - in less than 1 week (Call your Primary Care Provider to schedule follow up appointment within 1 week of hospitalization.)
Edgar Garcia III, MD [Active] - (Call the Vascular Surgeons office to schedule your next appointment and Limflow.)
Ricardo Rosales MD [Active] - in one to two weeks (Please call the Podiatry office to schedule an appointment with Dr. Rosales in 1-2 weeks after discharge from the hospital.)
Additional Discharge Medication Instructions: Continue taking the Augmentin (also known as amoxicillin-clavulanate) two times per day for 14 days.
Your insulin doses were increased while in the hospital. Continue these doses:
MORNIN units of Lantus (aka insulin glargine)
BEFORE MEALS: 14 units Novolog (aka insulin aspart)
NIGHT: 20 unite of Lantus
You can use acetaminophen for pain if needed. If you need a prescription for a stronger medication, call your High School Academic Coach or Primary Care.
You have not been getting hydrochlorothiazide in the hospital because of your kidney function. Talk to your Primary Care Provider before you restart this medication. They may want to repeat lab work.
Prescriptions:
New
acetaminophen 325 mg Tablet
650 mg PO Q4HPRN PRN (Reason: mild pain/HICKS/temp> 100.4F) Qty: 0 0RF
insulin aspart U-100 100 unit/mL (3 mL) Insulin Pen
14 unit SC AC Qty: 0 0RF
Insulin Glargine Lantus [Lantus] 10 UNITS
Subcutaneous Insulin Syringe [Syringe-Insulin] 0 UNIT
As Directed mls/hr SC DAILY
Ordered By: Jayde Mancilla MD, Resident
Last Taken: 10/07/24 08:45 0.1 mls
Insulin Glargine Lantus [Lantus] 20 UNITS
Subcutaneous Insulin Syringe [Syringe-Insulin] 0 UNIT
As Directed mls/hr SC HS
Ordered By: Jayde Mancilla MD, Resident
Last Taken: 10/06/24 21:09 0.17 mls
amoxicillin-pot clavulanate 875-125 mg tablet
1 tab PO BID 14 Days Qty: 28 0RF
Continued
amlodipine 10 MG tablet
10 mg PO DAILY Qty: 30 1RF
atorvastatin 80 MG tablet
80 mg PO QPM Qty: 60 0RF
aspirin 81 MG tablet,chewable
81 mg PO DAILY Qty: 30 0RF
ergocalciferol (vitamin D2) 1,250 mcg (50,000 unit) Capsule
1,250 mcg PO HURD
lisinopril 40 mg Tablet
40 mg PO HS
Held
hydrochlorothiazide 12.5 mg Tablet
12.5 mg PO DAILY
Hold Instructions: Discuss restarting with Primary
Discontinued
insulin aspart U-100 [Novolog FlexPen U-100 Insulin] 300 UNITS/3 ML insulin pen
8 units SC AC Qty: 3 1RF
insulin glargine [Lantus Solostar U-100 Insulin] 300 UNITS/3 ML insulin pen
6 units SC HS
insulin glargine [Lantus Solostar U-100 Insulin] 300 UNITS/3 ML insulin pen
7 units SC DAILY
Discharge Orders:
Discharge Patient (As Directed); Ordered 10/07/24
Ordered By: Jayde Mancilla
Discharge Date and Time
Discharge Date/Time: 10/07/24 15:59
Print Language: DANISH
== END 2024-10-07 15:59 | disposition home health service (06) | DRG 872 ==
LOC: 4 EAST ACU 16:09
PROVIDERS: Nurse Practitioner; Physician Assistant; Student in an Organized Health Care Education/Training Program; ADMITTING PHYSICIAN Internal Medicine; ATTENDING PHYSICIAN Internal Medicine; CONSULT PHYSICIAN Student in an Organized Health Care Education/Training Program; CONSULT PHYSICIAN Surgery Vascular Surgery; EMERGENCY PHYSICIAN Student in an Organized Health Care Education/Training Program; FAMILY PHYSICIAN Internal Medicine; OTHER PHYSICIAN Internal Medicine Infectious Disease
PROC: B41F1ZZ Fluoroscopy of Right Lower Extremity Arteries using Low Osmolar Contrast (ICD-10-PCS; 2024-10-03)
PROC: B4101ZZ Fluoroscopy of Abdominal Aorta using Low Osmolar Contrast (ICD-10-PCS; 2024-10-03)
PROC: B41J1ZZ Fluoroscopy of Other Lower Arteries using Low Osmolar Contrast (ICD-10-PCS; 2024-10-03)
DX: A41.9 Sepsis, unspecified organism (principal); E10.52 Type 1 diabetes mellitus with diabetic peripheral angiopathy with gangrene; L97.518 Non-pressure chronic ulcer of other part of right foot with other specified severity; I70.261 Atherosclerosis of native arteries of extremities with gangrene, right leg; M87.877 Other osteonecrosis, right toe(s); E10.40 Type 1 diabetes mellitus with diabetic neuropathy, unspecified; N18.9 Chronic kidney disease, unspecified; I12.9 Hypertensive chronic kidney disease with stage 1 through stage 4 chronic kidney disease, or unspecified chronic kidney disease; E78.00 Pure hypercholesterolemia, unspecified; E10.628 Type 1 diabetes mellitus with other skin complications; M19.90 Unspecified osteoarthritis, unspecified site; D63.8 Anemia in other chronic diseases classified elsewhere; L08.89 Other specified local infections of the skin and subcutaneous tissue; E66.09 Other obesity due to excess calories; E10.22 Type 1 diabetes mellitus with diabetic chronic kidney disease; F43.89 Other reactions to severe stress; Z60.2 Problems related to living alone; Z79.82 Long term (current) use of aspirin; Z79.4 Long term (current) use of insulin; Z86.73 Personal history of transient ischemic attack (TIA), and cerebral infarction without residual deficits; Z83.3 Family history of diabetes mellitus; Z80.9 Family history of malignant neoplasm, unspecified; Z82.49 Family history of ischemic heart disease and other diseases of the circulatory system; Z68.30 Body mass index [BMI] 30.0-30.9, adult
CPT/HCPCS: 36247; 73630; 73720; 75625; 75716; 80048; 80053; 80202; 82077; 82728; 82962; 83036; 83540; 83550; 83605; 83735; 85025; 85027; 85610; 85652; 85730; 86140; 87070; 87077; 87147; 87186; 87205; 93922; 93925; 93926; 93971; 96374; 96375; 97162; 97166; 99285; A9575; C1769; C1894; J7030; Q9967

== ENCOUNTER 2024-10-20 10:08 | Inpatient (IN) | payer MEDICARE, OTHER, SELFPAY ==
[2024-10-20] VITALS (22 sets, daily range): BP systolic 101–150; BP diastolic 44–66; BMI 30.2
[2024-10-20] MEDS: PERIDEX 0.12% ORAL RINSE 15 ML PO (11:29)
[2024-10-20] MEDS: NSS 500 IV (11:29)
[2024-10-20] MEDS: BACTROBAN NASAL 1 GRAM NASAL (11:29)
[2024-10-20 11:30] LABS: Glucose - Point of Care 441 mg/dl (70-99)
[2024-10-20 11:52] LABS: Glucose 428 mg/dl (70-99)
--- NOTE | 2024-10-20 12:26 | PTCARENOTE ---
Venous glucose 428 at 1133 . Aspart insulin 10 units given per Natalia nguyen.
[2024-10-20] MEDS: NOVOLOG vial 10 UNITS SC (12:30)
[2024-10-20] MEDS: NOVOLOG vial SC (12:58)
[2024-10-20 14:05] LABS: Glucose - Point of Care 339 mg/dl (70-99)
[2024-10-20 14:59] LABS: Glucose - Point of Care 267 mg/dl (70-99)
[2024-10-20 15:32] LABS: Glucose - Point of Care 240 mg/dl (70-99)
[2024-10-20 15:38] LABS: ACT-LR - POC 237 Seconds (116-155)
[2024-10-20 16:16] LABS: Glucose - Point of Care 210 mg/dl (70-99)
[2024-10-20 16:38] LABS: ACT-LR - POC 234 Seconds (116-155)
[2024-10-20 17:11] LABS: Glucose - Point of Care 185 mg/dl (70-99)
[2024-10-20 18:10] LABS: Glucose - Point of Care 158 mg/dl (70-99)
--- NOTE | 2024-10-20 18:20 | SUR.PHASEI ---
Patient arrived to PACU from [facility]. GENERAL INTERN, RN, and Resident at bedside. Difficult to locate R LE DP pulse via doppler. Dr. Garcia to PACU bedside. Decision made to return patient to OR. Patient to remain in PACU
[2024-10-20] MEDS: ZOFRAN 4 MG IV (18:28)
--- NOTE | 2024-10-20 18:33 | OR.RPT ---
Operative Report
Operative Report
Date of Operation: 10/20/2024
Pre Op Diagnosis:
Atherosclerosis of [place] arteries of right leg with ulceration of the right third toe
Atherosclerosis of [place] arteries of the right leg with gangrene of the right third toe
Chronic total occlusion of artery of the extremities
Diabetes mellitus with diabetic peripheral angiopathy with gangrene
Chronic kidney disease
Post Op Diagnosis:
Atherosclerosis of [place] arteries of right leg with ulceration of the right third toe
Atherosclerosis of [place] arteries of the right leg with gangrene of the right third toe
Chronic total occlusion of artery of the extremities
Diabetes mellitus with diabetic peripheral angiopathy with gangrene
Chronic kidney disease
Procedure:
1. 0620T: Endovascular venous arterialization, tibial or peroneal vein, with transcatheter placement of intravascular
stent graft(s) and closure by any method, including percutaneous or open vascular access, ultrasound guidance for
vascular access when performed, all catheterization(s) and intraprocedural roadmapping and imaging guidance
necessary to complete the intervention, all associated radiological supervision and interpretation, when performed
2. [id number]: Bypass right anterior tibial artery to lower extremity vein with synthetic substitute, percutaneous approach
3. Ultrasound-guided percutaneous access to the right dorsalis pedis vein, right foot
4. Ultrasound-guided percutaneous access to the right superficial femoral artery origin
5. Right lower extremity arteriogram
6. Balloon angioplasty of venous outflow in the right foot
Surgeon: Edgar Garcia III, MD
Coating Machine Feeder: Jerome David MD PGY1
Anesthesia: General
Complications: None
Estimated Blood Loss: 50 cc
History and Indications for Procedure: 68-year-old female with severe tibial artery and small vessel occlusive disease. Right toe gangrene and associated infection. No option for traditional endovascular or open revascularization. We brought her
to the operating room for transcatheter arterialization of the deep veins, right lower extremity.
Procedure in Detail: Ledy Ferrer was brought back to the operating room and placed supine on the OR table. General anesthesia was induced. Preoperative antibiotics were given. The patient�s right lower extremity and foot were prepped and draped
in the usual sterile fashion.
Patient was placed in reverse Trendelenburg position A sterile tourniquet was applied to the right calf and inflated while obtaining venous access. We obtained ultrasound guided percutaneous access in the dorsalis pedis vein over the dorsal aspect
of the right foot using a micropuncture technique. A 4Fr sheath was placed. A 0.014 wire was advanced through the dorsalis pedis vein into the anterior tibial vein.
Attention was then turned to the patient�s right groin. We first obtained antegrade percutaneous access in the right common femoral artery at the SFA origin using fluoroscopic and ultrasound guidance with a micropuncture needle. A 5Fr sheath was
inserted over a [employer] wire, which was advanced into the superficial femoral artery (SFA). We obtained a right lower extremity angiogram, which demonstrated the following:
Patent popliteal artery. Patent anterior tibial artery with distal occlusion. Patent tibioperoneal trunk, peroneal artery and posterior tibial artery. Severe small vessel disease again identified in the foot.
Systemic heparin was administered. I exchanged out for a 7 [place] 45 cm sheath. The radiopaque tip was advanced to the popliteal artery. We used a Quickcross catheter and 0.014 wire to select the anterior tibial artery. We advanced the LimFlow
ARC� Arterial Catheter into the proximal anterior tibial artery along the straightaway. We advanced the LimFlow V-Ceiver� Venous Catheter to the anterior tibial vein from the dorsalis pedis vein sheath at the same approximate level. The fluoroscopy
unit was rotated in such a way as to overlay the crossing device and snare. The LimFlow crossing device (ARC) needle was deployed into the anterior tibial vein. A 0.014 wire was advanced through the crossing device into the venous snare (V-Ceiver)
where it was captured and subsequently withdrawn through the venous sheath, providing through and through wire access. The arteriovenous connection was ballooned with a 3 mm x40 mm balloon. Next, the forward cutting LimFlow Vector� Valvulotome was
advanced from the arterial sheath across the arteriovenous connection into the anterior tibial vein. The valvulotome was deployed and advanced down the vein in order to lyse the venous valves to the distal-most aspect of the vein at the sheath
access site. A 5 mm x 200 mm balloon was used to angioplasty the donor vein to confirm adequate valve effacement and absence of stricture within the donor vein in preparation for stent placement. We then deployed the first LimFlow cylindrical stent
graft, 5.5mm x 200mm in the anterior tibial vein from just proximal to the ankle joint extending proximally up the calf. Next the tapered conical stent (3.5-5.5mm x 60 mm) was deployed proximally across the level of the arteriovenous connection. The
stent grafts were post-dilated to 3 mm in the arterial segment and 5 mm in the venous segment.
The plantar sheath was retracted to allow for wiring of the distal aspect of the dorsalis pedis vein, beyond the venous access sheath. We reintroduced the valvulotome (Vector) and advanced to efface any remaining valves in the distal aspect of the
anterior tibia vein, just distal to the stent. Initial arteriograms demonstrated sluggish flow through the LimFlow/TADV circuit. We then focused our attention on improving the outflow as follows. The dorsalis pedis vein was wired and with
catheter guidance looped back into the great saphenous vein outflow. A 4 mm x 150 mm balloon was advanced and positioned in the desired location. The balloon was inflated to nominal pressure. Several inflations were performed at nominal pressure.
The balloon was then deflated and removed. We then used a 5 mm x 40 mm [place] balloon at the immediate venous outflow just distal to the stents. The [place] balloon was inflated to high atmospheric pressure and profiled the vein nicely, removing
several areas of residual high-grade stenosis. Subsequent arteriogram demonstrated improvement in the appearance of the venous outflow but areas of some residual stenosis and irregularity remained. I then brought back into position the 4 mm
angioplasty balloon. This was left inflated in the venous outflow for a long inflation time of 4 minutes at nominal pressure.
Following this under roadmap guidance I advanced the 0.014 wire and a CXI catheter distally through the venous outflow and advance the wire into the plantar branches. A 3 mm angioplasty balloon was then used to treat the distal venous outflow and
plantar vein branches.
A completion angiogram demonstrated widely patent anterior tibial artery stents and robust filling of the pedal venous system. After treating the outflow as above the flow through the circuit was significantly improved compared to prior. The femoral
sheath was removed, and manual pressure was held until hemostasis was obtained. The pedal venous sheath was removed and venous access hemostasis was obtained. Dry sterile dressings were applied.
Handheld Doppler was performed at the dorsalis pedis vein, plantar veins and posterior tibial veins and an audible pulsatile signal was heard at all points.
Attestation: I was present and responsible for the entire procedure
Signed:
Edgar Garcia III, MD
[facility] Vascular Surgery
[phone] (more)
[2024-10-20] MEDS: MORPHINE SULFATE 4 MG IV (18:40)
[2024-10-20] MEDS: HEPARIN 25000 UNITS/250 ML IV (18:50)
--- NOTE | 2024-10-20 18:55 | W.PN.SURGUPD ---
Surgical Update
Surgical Update
Called to see patient in PACU
Change in Doppler exam right foot while in PACU
Had easily palpable pulses over dorsum of foot with robust Dopp signals
Now difficult to find and only arterial signal over [place] PT
Suspect occlusion of LimFlow/TADV circuit
Return to OR for angio/intervention
Heparin drip now
Discussed with patient and her son via telephone
[2024-10-20 19:28] LABS: Hematocrit 28.9 % (37.0-47.0); Hemoglobin 9.4 g/dL (12.0-16.0); Mean Corp Hgb Conc. 32.5 g/dL (33.0-37.0); Mean Corpuscular Hgb 28.7 pg (27.0-31.0); Mean Corpuscular Volume 88.4 fL (81.0-99.0); Mean Platelet Volume 9.3 fL (7.4-10.4); Platelet Count 222 10^3/uL (130-400); Red Blood Cell Count 3.27 10^6/uL (4.20-5.40); Red Cell Dist. Width 12.8 % (11.5-14.5); White Blood Cell Count 5.9 10^3/uL (4.8-10.8)
[2024-10-20 19:39] LABS: APTT 35.4 Sec (23.4-35.0)
[2024-10-20 20:42] LABS: Glucose - Point of Care 190 mg/dl (70-99)
[2024-10-20 21:02] LABS: ACT-LR - POC 303 Seconds (116-155)
[2024-10-20 22:47] LABS: Glucose - Point of Care 239 mg/dl (70-99)
[2024-10-20] MEDS: NOVOLOG vial 2 UNITS SC (23:18)
[2024-10-20] MEDS: MORPHINE SULFATE 2 MG IV (23:21)
[2024-10-20] MEDS: NSS 1000 IV (23:35)
[2024-10-21 00:03] VITALS: BP 115/53
[2024-10-21 00:57] LABS: Glucose - Point of Care 227 mg/dl (70-99)
[2024-10-21 01:03] VITALS: BP 108/46
[2024-10-21] MEDS: ULTRAM 50 MG PO ×2 (01:14→08:05)
[2024-10-21 02:08] VITALS: BP 102/44
[2024-10-21] MEDS: AUGMENTIN 875 MG/125 MG PO (02:32)
[2024-10-21 03:12] VITALS: BP 105/43
[2024-10-21] MEDS: HEPARIN 25000 UNITS/250 ML IV (04:50)
--- NOTE | 2024-10-21 06:26 | PTCARENOTE ---
Received pt in bed from PACU. IVF were infusing and bag of heparin was hanging from IV pole but not infusing. Verbal report prior to arrival from [facility] stated that the pt had a heprin gtt started prior to return to OR but was to be kept on hold
until until the vascular team came to assess the pt. Upon reviewing reports and notes, there was no indication as to turning off the gtt. Reached out to Dr Garcia who was covering and as per his tiger text the heparin gtt was restarted w/o a bolus as
the pts groin site was soft. The gtt was started at 15ml/hr and verified with Julianna RN. The pt has had (+) palpable pedal pulses and cap refill less than 2sec. Pt endorses full sensation. Pt noted moving toes and feet. Groin site has been soft and
the dsg is CDI. No s/s of distress assessed. Will continue to monitor.
[2024-10-21 06:58] LABS: Glucose - Point of Care 337 mg/dl (70-99)
[2024-10-21 07:15] VITALS: BP 99/39
--- NOTE | 2024-10-21 07:43 | OR.RPT ---
Operative Report
Operative Report
Date of Operation: 10/20/2024
Pre Op Diagnosis: Change in pulse exam with suspected thrombosis of LimFlow/TADV circuit
Post Op Diagnosis: Change in pulse exam with suspected thrombosis of LimFlow/TADV circuit
Procedure:
1.) Pharmacomechanical thrombolysis using AngioJet catheter, right lower extremity
2.) Balloon angioplasty of venous outflow stenosis using 4 mm, 5 mm angioplasty balloons and 5 mm x 20 mm cutting balloon
3.) Balloon angioplasty and stenting of venous outflow stenosis (5 mm x 2.5 cm Viabahn stent graft)
4.) Diagnostic right lower extremity arteriogram
5.) Ultrasound-guided percutaneous access to the right common femoral artery
Surgeon: Edgar Garcia III, MD
Forensic Structural Engineer: Jerome David MD PGY1
Anesthesia: Sedation with local
Fluoroscopy:
34.5 min
66 mGy
10.89 Gy.cm2
Complications: None
Estimated Blood Loss: 20 cc
History and Indications for Procedure: 68-year-old female with severe peripheral arterial occlusive disease and recently performed LimFlow/TADV procedure. She developed an acute change in her pulse exam in the recovery room consistent with
thrombosis of the limb flow circuit. She was taken back to the operating room for arteriogram and possible endovascular intervention
Procedure in Detail: Ledy Ferrer was correctly identified and placed supine on the operating table. After adequate induction of anesthesia the bilateral groins were prepped and draped in the usual sterile fashion. A timeout was performed with
the nursing and anesthesia staff confirming the patient's identity as well as the nature and laterality of the procedure.
The right common femoral artery was identified under ultrasound guidance. The artery was patent. The superior and inferior aspects of the femoral head were identified with radiographic guidance and marked at the skin level. The proposed puncture
site was infiltrated with local anesthesia. Under ultrasound guidance we accessed the right common femoral artery with a micropuncture needle, navigated the wire into the superficial femoral artery and upsized to a 5 Fr sheath over a Bentson wire.
The Bentson wire was advanced into the below-knee popliteal artery. A quick cross catheter was then advanced over the wire to the below-knee popliteal artery.
A diagnostic right lower extremity arteriogram was then performed which demonstrated the following:
RIGHT LOWER EXTREMITY:
Popliteal artery: Patent
Anterior tibial artery: Patent at the origin and proximal segment. Occluded proximal to the LimFlow/TADV stents
Limb flow circuit was occluded.
ENDOVASCULAR INTERVENTION: Systemic heparin was administered. Exchanged out for a 6 Fr sheath. Selected the anterior tibial artery under roadmap guidance with Quickcross catheter and glidewire. The occluded segment was crossed. The wire and catheter
were advanced into the distal aspect of the limb flow stents. An arteriogram was then performed through the catheter which demonstrated filling defects consistent with thrombus within the venous outflow in the foot. 4 mg of tPA was directly
injected through the Quickcross catheter into the foot. A [place] ST 0.014 wire was easily advanced through the Quickcross catheter and into the venous outflow. I then brought into position the AngioJet [place] catheter. This was advanced over the
wire into the proximal anterior tibial artery. Mechanical thrombolysis was then performed with the AngioJet catheter along the entire length of the anterior tibial artery, through the limb flow stents and into the distal venous outflow in the foot.
Multiple passes were made. Subsequent arteriogram demonstrated a now patent LimFlow/TADV circuit. Areas of irregularity and residual stenosis were identified along the venous outflow in the foot. This was particularly noticeable at the venous
outflow immediately distal to the end of the stent at the ankle. In order to ensure there was no inflow abnormality I brought into position a 3 mm x 60 mm angioplasty balloon into the proximal anterior tibial artery and crossover point of the
LimFlow/TADV stents. The proximal anterior tibial artery and proximal aspect of the LimFlow/TADV stents were treated with the 3 mm angioplasty balloon at nominal pressure. Under roadmap guidance I then brought into position a 5 mm x 40 mm
angioplasty balloon to treat the venous outflow in the foot. This balloon positioned in the desired location and held in place at nominal pressure for 2 minutes inflation at each segment. A 5 mm x 2.5 cm Viabahn stent graft was then used as a
distal extension at the ankle. This was placed and deployed in the desired location. The Viabahn stent was then profiled with the 5 mm x 40 mm angioplasty balloon and then with a 5 mm noncompliant coronary balloon. The stent profiled nicely with
minimal residual stenosis identified at its midportion. This did not completely resolve even with the 5 mm noncompliant balloon at rated burst pressure. Two areas of focal residual venous outflow stenosis were identified in the foot. These were
both treated successfully with a 5 mm x 20 mm cutting balloon.
COMPLETION ARTERIOGRAM: Excellent technical result. Brisk and widely patent LimFlow/TADV stents. Widely patent venous outflow with brisk flow and no filling defects or residual stenosis in the treated segments.
Satisfied with this result we concluded the procedure. The sheath tip was pulled and direct manual pressure was held over the puncture site. Hemostasis was achieved. A sterile dressing was applied.
At the conclusion of the case the patient had palpable pulse over the dorsal aspect of the foot and medial ankle. Robust pulsatile Doppler signals were heard at each of these locations.
The patient tolerated the procedure well and was taken to the recovery area in stable condition.
Attestation: I was present and responsible for the entire procedure.
Signed:
Edgar Garcia III, MD
Vascular Surgery
[facility]
[2024-10-21 07:49] LABS: INR 1.14; PT 14.9 Sec (11.4-14.6)
[2024-10-21 07:56] LABS: Blood Urea Nitrogen 27 mg/dl (7-17); Calcium 8.6 mg/dl (8.4-10.2); Carbon Dioxide 20 mmol/L (22-30); Chloride 107 mmol/L (98-107); Estimated Creatinine Clearance 44 ml/min; Glucose 322 mg/dl (70-99); Hematocrit 26.3 % (37.0-47.0); Hemoglobin 8.6 g/dL (12.0-16.0); Mean Corp Hgb Conc. 32.7 g/dL (33.0-37.0); Mean Corpuscular Hgb 29.5 pg (27.0-31.0); Mean Corpuscular Volume 90.1 fL (81.0-99.0); Mean Platelet Volume 10.7 fL (7.4-10.4); Platelet Count 193 10^3/uL (130-400); Potassium 5.1 mmol/L (3.5-5.1); Red Blood Cell Count 2.92 10^6/uL (4.20-5.40); Red Cell Dist. Width 13.2 % (11.5-14.5); Sodium 137 mmol/L (135-145); White Blood Cell Count 11.2 10^3/uL (4.8-10.8); eGFR 45.35
[2024-10-21] MEDS: ORETIC 12.5 MG PO (08:04)
[2024-10-21] MEDS: AUGMENTIN 875 MG/125 MG 1 TABLET PO (08:05)
[2024-10-21] MEDS: NORVASC 10 MG PO (08:05)
[2024-10-21] MEDS: LANTUS 0.07 UNITS SC (08:06)
[2024-10-21] MEDS: NOVOLOG FLEXPEN-HIGH RESISTANCE 10 UNITS SC (08:06)
[2024-10-21] MEDS: LOW STRENGTH ASPIRIN 81 MG PO (08:07)
--- NOTE | 2024-10-21 08:14 | VNURNOTE ---
Chart reviewed. Patient is current with [facility] nursing. Will continue to follow hospital course and DC plans.
--- NOTE | 2024-10-21 08:15 | W.PN.VS ---
Addendum entered and electronically signed by Edgar Garcia III, MD 10/21/24 16:09:
This patient was seen and examined in collaboration with CAMMIE Gallegos. I agree with the history and physical exam as well as the assessment and plan.
Edgar Garcia III, MD
Vascular Surgery
[facility]
Original Note:
Today's Communication / Plan
-
Patient seen and examined at bedside with Dr. Edgar Garcia III, below plan reviewed with attending.
Assessment/Plan
-
Assessment: 68-year-old female POD #1 Endovascular venous arterialization, tibial or peroneal vein, with transcatheter placement of intravascular, bypass right anterior tibial artery to lower extremity vein with synthetic substitute, percutaneous
approach and bring back to the OR for occlusion of the limb flow circuit suspected in PACU, Pharmacomechanical thrombolysis using AngioJet catheter, right lower extremity, balloon angioplasty of venous outflow stenosis using 4 mm, 5 mm angioplasty
balloons and 5 mm x 20 mm cutting balloon, balloon angioplasty and stenting of venous outflow stenosis (5 mm x 2.5 cm Viabahn stent graft)
Plan:
Will discontinue IV heparin infusion to transition to oral anticoagulation of Eliquis 5 mg p.o. twice daily
OOB to chair with progression to ambulation as tolerated
Nursing at bedside to provide a.m. dose of long-acting insulin and mealtime coverage insulin, will continue to track [id number] glucose per insulin management protocol
Given stent placement patient should continue with her antiplatelet medication of aspirin 81 mg p.o. daily in addition to her anticoagulation we are initiating today
Possible discharge later this afternoon
Subjective Data
-
Date of Service: October 21, 2024
Patient seen and examined at bedside, denies pain at right groin puncture site or foot. Denies nausea, vomiting, fever, and chills. Does endorse concern that she has not received her a.m. insulin dose, otherwise offers no complaints.
Objective Data
-
Vital Signs
Temp Pulse Resp BP Pulse Ox
98.5 F 85 16 113/47 97
10/21/24 07:15 10/21/24 08:05 10/21/24 07:15 10/21/24 08:05 10/21/24 07:15
Intake and Output
10/20/24 10/21/24 10/22/24
06:59 06:59 06:59
Intake Total 140 / 140
Output Total 325 / 325
Balance -185 / -185
Intake:
IV fluids (Total) 140 / 140
NSS 140 / 140
Output:
Urine, Garcia 325 / 325
Lab Results
10/21/24 05:51
10/21/24 05:51
Calcium 8.6 mg/dl (8.4-10.2) 10/21/24 05:51
Physical Exam
-
No apparent distress, resting in bed comfortably
No tachycardia
No dyspnea on room air
Abdomen rotund, nondistended, nontender
Right groin puncture site CDI, no evidence of hematoma, ulcerated compartments soft
Right foot puncture site CDI, right PT +1 palpable and DP +2 palpable
[2024-10-21] MEDS: ELIQUIS 5 MG PO (09:10)
--- NOTE | 2024-10-21 09:11 | PTCARENOTE ---
received pt on heparin gtt 15/hr. vascular at bedside at 0730, discuss POC, D/C gtt and start eliquis PO. poss. D/C later. pt and family in agreement with POC
[2024-10-21 11:05] LABS: APTT 67.3 Sec (23.4-35.0)
--- NOTE | 2024-10-21 11:22 | CM ---
Addendum entered by Concepcion Pierre 10/21/24 16:33:
Given coupon for Eliquis 30 day free
Original Note:
Met with pt at bedside; initial assessment completed
Pt reports she lives in a bi-level home; 4 [address], FF set-up
Independent, employed PT, was driving
DME - rolling walker
SNF - denies past hx
HH - current with [facility]
Has ride at d/c
PCP - Devan Arif
Pharm - [employer]
Given IMM
Plan - anticipate home with SUYAPA with [facility]
[2024-10-21 11:28] LABS: Glucose - Point of Care 351 mg/dl (70-99)
[2024-10-21] MEDS: NOVOLOG FLEXPEN-HIGH RESISTANCE SC (12:42)
[2024-10-21] MEDS: NOVOLOG FLEXPEN 15 UNITS SC (12:58)
[2024-10-21 15:05] VITALS: BP 138/46
--- NOTE | 2024-10-21 15:23 | W.DS.TRANS ---
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
-
Discharge Instructions:
Discharge Diagnosis/Procedures Atherosclerosis of [place] arteries of right leg
with ulceration of the right third toe
Atherosclerosis of [place] arteries of the right
leg with gangrene of the right third toe
Chronic total occlusion of artery of the
extremities
Diabetes mellitus with diabetic peripheral
angiopathy with gangrene
Chronic kidney disease
1. Endovascular venous arterialization, tibial
or peroneal vein, with transcatheter placement
of intravascular
stent graft(s) and closure by any method,
including percutaneous or open vascular access,
ultrasound guidance for
vascular access when performed, all
catheterization(s) and intraprocedural
roadmapping and imaging guidance
necessary to complete the intervention, all
associated radiological supervision and
interpretation, when performed
2. [id number]: Bypass right anterior tibial artery
to lower extremity vein with synthetic
substitute, percutaneous approach
3. Ultrasound-guided percutaneous access to the
right dorsalis pedis vein, right foot
4. Ultrasound-guided percutaneous access to the
right superficial femoral artery origin
5. Right lower extremity arteriogram
6. Balloon angioplasty of venous outflow in the
right foot
Diet As tolerated,Diabetic, Carb Controlled
Activity No strenuous activity
Additional Activity No lifting greater than 10 pounds or strenuous
activity for 2 weeks
Driving Restrictions No driving for 48 hours
Bathing Restrictions OK to Shower
Others Tests Your repeat arterial and venous ultrasound is
scheduled on
Other Services VN
Instructions:
Stand-Alone Forms: DC Instr - Vascular OR
Changes to Home Medications: Yes
Discharge Medications:
DC Medications w/original date entered in [employer]
amlodipine 10 mg tablet 10 mg PO DAILY ##30 07/02/18
aspirin 81 mg chewable tablet 81 mg PO DAILY ##30 07/06/18
atorvastatin 80 mg tablet 80 mg PO QPM ##60 07/06/18
ergocalciferol (vitamin D2) 1,250 mcg (50,000 unit) capsule 1,250 mcg PO HURD Supplement 09/30/24
hydrochlorothiazide 12.5 mg tablet 12.5 mg PO DAILY Fluid Retention/Swelling 09/30/24
lisinopril 40 mg tablet 40 mg PO HS Blood Pressure 09/30/24
acetaminophen 325 mg tablet 650 mg (2 x 325 mg) PO Q4HPRN PRN mild pain/HICKS/temp> 100.4F #0 tabs 10/07/24
amoxicillin 875 mg-potassium clavulanate 125 mg tablet 1 tab PO BID 14 days #28 tabs 10/07/24
insulin aspart U-100 100 unit/mL (3 mL) subcutaneous pen 10 unit SC AC Diabetes 10/16/24
insulin glargine 100 unit/mL subcutaneous solution (Lantus U-100 Insulin) 7 unit SC DAILY Diabetes 10/16/24
insulin glargine 100 unit/mL subcutaneous solution (Lantus U-100 Insulin) See Rx Instructions .Route .COMPLEX Diabetes 10/16/24
tramadol 50 mg tablet 50 mg PO HS Pain 10/16/24
apixaban 5 mg tablet (Eliquis) 5 mg PO BID #180 tabs 10/21/24
Home Medication Changes
Added:
apixaban 5 mg tablet (Eliquis) 5 mg PO BID #180 tabs 10/21/24
Pending Results: No
[2024-10-21 15:28] LABS: Glucose - Point of Care 307 mg/dl (70-99)
--- NOTE | 2024-10-21 15:35 | PTCARENOTE ---
pt's blood glucose monitor reading 267.
[2024-10-21 16:53] LABS: Glucose - Point of Care 280 mg/dl (70-99)
== END 2024-10-21 17:31 | disposition home or self-care (01) | DRG 271 ==
LOC: 2 SOUTH 10:08
PROVIDERS: Nurse Practitioner; ADMITTING PHYSICIAN Surgery Vascular Surgery; FAMILY PHYSICIAN Internal Medicine
PROC: B41F1ZZ Fluoroscopy of Right Lower Extremity Arteries using Low Osmolar Contrast (ICD-10-PCS; 2024-10-20)
PROC: 067Y3ZZ Dilation of Lower Vein, Percutaneous Approach (ICD-10-PCS; 2024-10-20)
PROC: 041 Lower Arteries, Bypass (ICD-10-PCS; 2024-10-20)
PROC: 047P3ZZ Dilation of Right Anterior Tibial Artery, Percutaneous Approach (ICD-10-PCS; 2024-10-21)
PROC: 067Y3DZ Dilation of Lower Vein with Intraluminal Device, Percutaneous Approach (ICD-10-PCS; 2024-10-21)
PROC: 04CP3ZZ Extirpation of Matter from Right Anterior Tibial Artery, Percutaneous Approach (ICD-10-PCS; 2024-10-21)
PROC: 06CY3ZZ Extirpation of Matter from Lower Vein, Percutaneous Approach (ICD-10-PCS; 2024-10-21)
PROC: 3E03317 Introduction of Other Thrombolytic into Peripheral Vein, Percutaneous Approach (ICD-10-PCS; 2024-10-21)
DX: E10.52 Type 1 diabetes mellitus with diabetic peripheral angiopathy with gangrene (principal); I70.261 Atherosclerosis of native arteries of extremities with gangrene, right leg; I70.92 Chronic total occlusion of artery of the extremities; M87.877 Other osteonecrosis, right toe(s); L97.518 Non-pressure chronic ulcer of other part of right foot with other specified severity; T82.856A Stenosis of peripheral vascular stent, initial encounter; E10.40 Type 1 diabetes mellitus with diabetic neuropathy, unspecified; D64.9 Anemia, unspecified; E78.5 Hyperlipidemia, unspecified; I12.9 Hypertensive chronic kidney disease with stage 1 through stage 4 chronic kidney disease, or unspecified chronic kidney disease; E10.22 Type 1 diabetes mellitus with diabetic chronic kidney disease; N18.9 Chronic kidney disease, unspecified; Y83.1 Surgical operation with implant of artificial internal device as the cause of abnormal reaction of the patient, or of later complication, without mention of misadventure at the time of the procedure; Y92.239 Unspecified place in hospital as the place of occurrence of the external cause; Z60.2 Problems related to living alone; Z86.73 Personal history of transient ischemic attack (TIA), and cerebral infarction without residual deficits; Z88.5 Allergy status to narcotic agent; Z79.82 Long term (current) use of aspirin; Z79.4 Long term (current) use of insulin
CPT/HCPCS: 0620T; 36012; 37187; 37238; 75820; 80048; 82947; 82962; 85027; 85610; 85730; 93005; C1725; C1757; C1769; C1874; C1887; C1889; C1894; J2997; Q9967

== ENCOUNTER 2024-10-24 08:46 | Emergency (ER) | payer MEDICARE, OTHER, SELFPAY ==
[2024-10-24 08:47] VITALS: BP 159/73
[2024-10-24 09:03] VITALS: BMI 29.2
--- NOTE | 2024-10-24 09:08 | EDRN ---
Dr. Chaney in room w/pt. Pt is on Eliquis since Sunday and has not missed a dose.
--- NOTE | 2024-10-24 09:10 | ED.GENMED ---
History of Present Illness
General
Chief Complaint: DVT/Possible Blood Clot
Source: patient, records and family
Exam Limitations: none
Time Seen by Provider: 10/24/24 09:02
Nursing documentation reviewed up to this point in time: agreed with
History of Present Illness
History of Present Illness:
68-year-old female with past medical history as documented presents to the ER for evaluation of right lower extremity swelling. Of note patient was here for right lower extremity bypass surgery with Dr. Garcia on 10/20/24; she had change in pulse exam
shortly after initial procedure and had to return to the OR for arteriogram and endovascular intervention. She was discharged on Sunday and has been maintained on Eliquis. She says that since then she has noticed some increased swelling and some
erythema of the foot on the right. She has some mild pain in the right leg. She was concern for blood clot and came to the ER for evaluation. She denies any chest pain, shortness of breath, fevers or any other complaints. Reports compliance with
her Eliquis without missed doses.
Past History
Past History
ED Past Medical History: IDDM
Review of Systems
Review of Systems
All Other Systems: ROS reviewed and negative except as documented in HPI and ROS
Constitutional: Denies fever or chills
Respiratory: Denies trouble breathing
Cardiac: Denies chest pain
Musculoskeletal: Reports edema
Skin: Reports other (Redness)
Phy Exam
Physical Exam
Physical Exam:
General: Awake, alert; no acute distress
Head: Normocephalic, atraumatic
Eyes: Conjunctiva normal
Throat: Airway intact, handling secretions
Neck: Trachea midline
Lungs: Breathing comfortably no distress
Heart: Regular rate
Neuro: No gross deficits
Skin: Some slight erythema on the distal right lower extremity but no warmth or induration, no tenderness
Extremities: Patient has edema right lower extremity, no edema left lower extremity; she does have pulses palpable throughout right lower extremity femoral, popliteal, DP, PT
Scores
Heart Failure Risk
Heart Failure Risk Score: Not Applicable
Heart Score for Chest Pain Patients
STEMI patient?: Not applicable
Withdrawal Assessment of Alcohol
Withdrawal Assessment Completed?: Not applicable
Course
Orders/Labs/Results
Orders:
Orders
10/24/24 09:03
US Periph Venous LOWER Ext RT Urgent
Comment:
Reason For Exam: RLE swelling
10/24/24 09:37
Lower Ext Arterial & LESLIE US [US Periph Art LOWER Ext w LESLIE] Urgent
Comment:
Reason For Exam: RLE swelling s/p bypass
10/24/24 09:39
Vascular Surgery Consult Urgent
Consulting Provider: Edgar Garcia III
Was physician already notified: Yes
Vital Signs
Initial and Last Documented VS:
Initial Vital Signs
Temp Pulse Resp BP Pulse Ox
36.7 C 95 16 159/73 99
10/24/24 08:47 10/24/24 08:47 10/24/24 08:47 10/24/24 08:47 10/24/24 08:47
Last Documented Vital Signs
Temp Pulse Resp BP Pulse Ox
36.7 C 74 16 133/51 100
10/24/24 08:47 10/24/24 09:33 10/24/24 09:33 10/24/24 09:33 10/24/24 09:33
MDM/Problems Addressed
Differential Diagnosis Includes:
Postoperative swelling, DVT, cellulitis, arterial occlusion less likely based on exam
MDM/Problems Addressed:
68-year-old female with recent procedures as noted presents for evaluation of right leg swelling and redness. Vitals and exam as above. Will start with ultrasound of the right lower extremity to evaluate for DVT. Discussed case with vascular
surgery. Reassess after the above.
Discussed with vascular surgery�added arterial/Limflow US.
Ultrasound shows no clot, patent LimFlow circuit. Discussed with vascular surgery, some swelling expected after this procedure recommended gentle Darion wrapping and elevation. Follow-up as scheduled with vascular surgeon as an outpatient. Patient
and daughter comfortable with this plan. All questions answered.
Chronic conditions affecting care:
PAD
Acute Exacerbation and/or Progression of Chronic Illness:
Acutely hypertensive without signs or symptoms of hypertensive crisis�no indication for emergent anti-hypertensive
Acute Exacerbation and/or Progression of Chronic Illness: HTN
*Radiology
Radiology exam reviewed: radiology read reviewed
*Pulse Oximetry
Patient hypoxic: no
*Critical Care Note
Total Time (30-74mins, 75-104mins- exclusive of procedures): Not Applicable
Data Reviewed
Source: patient and records
Patient Management
Discussion with other providers: Emergency Medicine Physician (Discussed with vascular surgery)
ED Attending Note
-
Portions of this chart may have been created with voice recognition software.� Occasional wrong word or��sound alike� substitutions may have occurred due to the inherent limitations of voice recognition software.
Discharge Plan
Departure
Patient Disposition: Home (Routine Discharge)
Date of Disposition: 10/24/24
Time of Disposition: 11:09
Patient with high blood pressure during this ER visit?: Yes
Discharge Problem:
Right leg swelling
Instructions: Swelling
Prescriptions:
No Action
amlodipine 10 MG tablet
10 mg PO DAILY Qty: 30 1RF
atorvastatin 80 MG tablet
80 mg PO QPM Qty: 60 0RF
aspirin 81 MG tablet,chewable
81 mg PO DAILY Qty: 30 0RF
ergocalciferol (vitamin D2) 1,250 mcg (50,000 unit) Capsule
1,250 mcg PO HURD
lisinopril 40 mg Tablet
40 mg PO HS
hydrochlorothiazide 12.5 mg Tablet
12.5 mg PO DAILY
acetaminophen 325 mg Tablet
650 mg PO Q4HPRN PRN (Reason: mild pain/HICKS/temp> 100.4F) Qty: 0 0RF
amoxicillin-pot clavulanate 875-125 mg tablet
1 tab PO BID 14 Days Qty: 28 0RF
insulin aspart U-100 100 unit/mL (3 mL) insulin pen
10 unit SC AC
tramadol 50 mg Tablet
50 mg PO HS
insulin glargine [Lantus U-100 Insulin] 100 unit/mL Solution
7 unit SC DAILY
insulin glargine [Lantus U-100 Insulin] 100 unit/mL Solution
See Rx Instructions .ROUTE .COMPLEX
Rx Instructions:
DAILY @ 1800, 6 unit subcutaneously, half dose as prescribed last night
Eliquis 5 mg Tablet
5 mg PO BID 30 Days Qty: 60 0RF
Referrals:
Devan Riojas MD [Family Provider] -
Edgar Garcia III, MD [Active] - Keep scheduled appt
Activity Restrictions/Additional Instructions:
Thank you for visiting the Emergency Department at [facility].
1. Please schedule a follow up appointment as directed. Call first thing tomorrow morning to make an appointment.
2. If indicated, please take your medications as instructed and indicated on discharge paperwork.
3. If any of your symptoms do not improve, or persist, or become more severe within 6-12 hours, please return to the emergency department for further care.
4. Please return to the emergency department if you develop a headache, neck pain/stiffness, fever greater than 100.4F, chest pain, shortness of breath, persistent nausea, vomiting, slurred speech, difficulty walking, numbness/tingling, weakness,
signs of infection or any other symptoms that are worrisome to you.
Please call [phone] if you have any questions.
Interventions
Interventions:
*Risk Screen - Suicide Last Done: 10/24/24 08:47
*General Assessment Last Done: 10/24/24 09:01
*Neglect/Abuse Screening Last Done: 10/24/24 09:01
*ED- Fall Risk Assessment Last Done: 10/24/24 09:01
*ED COVID-19 Vaccine History Last Done: 10/24/24 09:01
ED- Cardiac Assessment Last Done: 10/24/24 09:03
ED- Pulmonary Assessment Last Done: 10/24/24 09:03
ED-Peripheral Vascular Assessment Last Done: 10/24/24 09:03
ED-Skin Assessment Last Done: 10/24/24 09:03
Discharge Date and Time
Print Language: PALAUAN
[2024-10-24 09:33] VITALS: BP 133/51
[2024-10-24 11:34] VITALS: BP 138/87
--- NOTE | 2024-10-24 11:34 | EDRN ---
Darion wrap applied to R lower leg at this time.
== END 2024-10-24 11:42 | disposition home or self-care (01) ==
LOC: EMR 08:46
PROVIDERS: CONSULT PHYSICIAN Surgery Vascular Surgery; EMERGENCY PHYSICIAN Emergency Medicine; FAMILY PHYSICIAN Internal Medicine
DX: R22.41 Localized swelling, mass and lump, right lower limb (principal); M79.604 Pain in right leg; E11.9 Type 2 diabetes mellitus without complications; I10 Essential (primary) hypertension
CPT/HCPCS: 99284; 93922; 93926; 93971

== ENCOUNTER 2024-11-12 12:17 | Inpatient (IN) | payer MEDICARE, OTHER, SELFPAY ==
[2024-11-12 10:58] VITALS: BP 137/53
--- NOTE | 2024-11-12 11:32 | ED.GENMED ---
History of Present Illness
General
Chief Complaint: Skin Problem
Source: patient and records
Time Seen by Provider: 11/12/24 10:56
History of Present Illness
History of Present Illness:
68-year-old female status post right lower extremity deep venous arterialization, status post thrombolysis, CLINICAL RN/stenting venous outflow stenosis presenting to the emergency department for evaluation and anticipated admission with IV antibiotic
treatment for right third toe osteomyelitis/gangrene. She has been on Augmentin for the last 2 days with no relief, visiting nurse this morning noticed increased purulent drainage and odor. Patient follows with Dr. Garcia from vascular surgery as
well as Dr. Gonzales from podiatry. She denies any fevers, chills, rigors or any other concerns.
Past History
Past History
ED Past Medical History: CVA, HTN, Hypercholesterolemia, IDDM and Other (Peripheral vascular/arterial disease)
ED Past Surgical History: Other
Social History
Tobacco: Non-smoker
Alcohol: None
Drug: None
Personal:
Living: alone
Review of Systems
Review of Systems
All Other Systems: ROS reviewed and negative except as documented in HPI and ROS
Phy Exam
Physical Exam
Physical Exam:
GENERAL: Alert , in no apparent distress
EYE: conjunctiva clear
Head: Normocephalic atraumatic
NECK: Supple,
ENT: mmm.
LUNGS: no acute respiratory distress
NEUROLOGICAL: Alert and oriented
SKIN: Warm and dry, gangrenous and malodorous right third toe, no surrounding erythema or edema
MUSCULOSKELETAL: well perfused.
PSYCH: Normal and appropriate interaction.
Scores
Heart Failure Risk
Heart Failure Risk Score: Not Applicable
Heart Score for Chest Pain Patients
STEMI patient?: Not applicable
Withdrawal Assessment of Alcohol
Withdrawal Assessment Completed?: Not applicable
Course
Orders/Labs/Results
Orders:
Orders
11/12/24 11:22
Piperacillin/Tazo 3.375 Gram [Zosyn] 3.375 gram in 50 ml IV NOW
CR Foot - Right Min 3 Views Urgent
Comment:
Reason For Exam: 3rd toe gangrene
11/12/24 11:30
CRP [C-Reactive Protein] Urgent
Complete Blood Count/With Diff Urgent
Comprehensive Metabolic Panel Urgent
ESR [Erythrocyte Sed Rate] Urgent
11/12/24 11:43
Vancomycin [Vancocin] 1,500 mg 0.9% Sodium Chloride 500 ml [Nss] 500 ml IV NOW
11/12/24 11:52
Admit/Transfer Patient As Directed
Co-Sign Provider:
Level of Care: Inpatient admission
Assign to:: Telemetry
Physician / Group: ese stout
Diagnosis: Gangrene of right 3rd toe
Reason for Telemetry: Other
Other Reason for Telemetry: Gangrene of right 3rd toe
Date to Stop Telemetry: 11/14/24
Time to Stop Telemetry: 11:00
Reason for Hospitalization: Gangrene of right 3rd toe
Expected length of stay greater than two midnights?: Yes
ELOS- Estimated Length of Stay in days: 3
I certify the patient meets the requirements for IP care: Yes
PRN Pain Medication Management As Directed
May give lesser potent ordered pain med per pt: Yes
preference::
Protocol:: Medication orders for pain may be administered in a
manner that supports deferring to patient preference
when the pt is:
- Requesting an ordered lesser potent pain medication.
Least to most potent pain medications are defined
as: acetaminophen < NSAID < tramadol < opioids
(morphine, oxycodone, hydromorphone).
- Requesting a lesser dose of the same medication IF
ORDERED.
- Requesting a less intrusive route of administration
if both routes are prescribed by the provider (PO <
IV).
11/12/24 11:59
US Limflow Post RT Routine
Comment:
Reason For Exam: re- eval in setting of wound worsening
11/12/24 12:00
Code Status As Directed
Resuscitation Status: Full Code
11/12/24 12:09
Consult Vascular Surgery [Vascular Surgery Consult] Routine
Consulting Provider: Edgar Garcia III
Was physician already notified: Yes
Reason for consult: Right third toe gangrene
11/12/24 12:10
VANCOMYCIN Pharmacy to Dose [VANCOCIN Pharmacy to Dose] 1 each Pharmacy To Prepare [Call Pharmacy To Prepare] 0 ml IV PER PROTOCOL
11/12/24 14:00
Piperacillin/Tazo 4.5 Gram [Zosyn] 4.5 gram in 100 ml IV Q8H
11/14/24 11:00
DC Protocol for Telemetry ONCE
Abnormal Lab Results
11/12/24
11:30
RBC 3.60 L 10^6/uL
(4.20-5.40)
Hgb 10.5 L g/dL
(12.0-16.0)
Hct 31.4 L %
(37.0-47.0)
Absolute Monos (auto) 0.9 H 10^3/uL
(0.1-0.6)
Lymphocytes % 17.2 L %
(20.5-51.1)
Monocytes % 9.4 H %
(1.7-9.3)
ESR 22 H mm/hour
(0-20)
BUN 28 H mg/dl
(7-17)
Creatinine 1.2 H mg/dL
(0.6-1.0)
Glucose 152 H mg/dl
(70-99)
Total Bilirubin 1.5 H mg/dl
(0.2-1.3)
C-Reactive Protein 26.70 H mg/L
(0.0-10.00)
11/12/24 11:30
11/12/24 11:30
Vital Signs
Initial and Last Documented VS:
Initial Vital Signs
Temp Pulse Resp Pulse Ox
98.4 F 79 18 98
11/12/24 10:57 11/12/24 10:57 11/12/24 10:57 11/12/24 10:57
Last Documented Vital Signs
Temp Pulse Resp BP Pulse Ox
98.4 F 78 20 138/78 98
11/12/24 10:57 11/12/24 13:55 11/12/24 13:55 11/12/24 13:55 11/12/24 13:55
MDM/Problems Addressed
Differential Diagnosis Includes:
Osteomyelitis/gangrene of the right third toe, cellulitis, abscess, peripheral vascular/arterial disease
MDM/Problems Addressed:
68-year-old female presenting to the ER for evaluation with anticipated admission for right toe osteomyelitis/gangrene, started on Augmentin 2 days ago but visiting nurse concern for worsening infection. Patient without fevers, hemodynamically
stable and otherwise well-appearing. Will initiate vancomycin and Zosyn, labs ordered, x-ray of the foot ordered. Will notify hospitalist team as well as podiatry and vascular.
*Radiology
Radiology exam reviewed: preliminary read by ED provider (suspected acute osteo of proximal phalynx left 3rd toe)
*Pulse Oximetry
Patient hypoxic: no
*Critical Care Note
Total Time (30-74mins, 75-104mins- exclusive of procedures): Not Applicable
Data Reviewed
Review of Other/Old Records Reveals: Labs, Records, Radiology Studies and Discharge Summary
Source: patient and records
Patient Management
Discussion with other providers: Hospitalist and Conservation Worker
Escalation/DeEscalation of care consider admission/obs:
Hospitalist team accepts for admit. Vascular and podiatry to see in consult
ED Attending Note
-
Portions of this chart may have been created with voice recognition software.� Occasional wrong word or��sound alike� substitutions may have occurred due to the inherent limitations of voice recognition software.
Discharge Plan
Departure
Patient Disposition: Admit
Date of Disposition: 11/12/24
Time of Disposition: 11:39
Presentation/result/management discussed w/ accepting MD/DO: Hospitalist
Discharge Problem:
Gangrene of toe of right foot
Interventions
Interventions:
*Risk Screen - Suicide Last Done: 11/12/24 10:58
*General Assessment Last Done: 11/12/24 10:58
ED-Skin Assessment Last Done: 11/12/24 11:01
[2024-11-12 11:40] VITALS: BMI 29.0
--- NOTE | 2024-11-12 11:46 | HPS.HSE ---
Family Physician
-
Family Physician: Devan Riojas MD
Chief Complaint
-
Right third toe gangrene
History of Present Illness
Patient is a pleasant 68 years old with history of diabetes mellitus, hypertension, hyperlipidemia, CVA, peripheral vascular disease who came to the ER with worsening right third toe dark discoloration and gangrene.
Patient was started on Augmentin as outpatient with no relief.
Visiting nurse noticed increased purulent drainage and color advised to come to the ER.
Patient follows with Dr. Garcia from vascular surgery and from podiatry.
Patient seen and examined at bedside, denies any chest pain or shortness of breath, no abdominal pain, no nausea, no vomiting, no diarrhea or constipation.
Discussed with patient and family at bedside.
Patient started on vancomycin and Zosyn and will be admitted under hospitalist service.
Medical History
Past Medical History
Past Medical History: Reports CVA, HTN, Hypercholesterolemia, IDDM and Other
Additional Past Medical History:
Peripheral vascular disease
Past Surgical History: Reports Other
Social History
Tobacco: Non-smoker
Alcohol: None
Drug: None
Personal:
Family History
Family History: Not pertinent
Allergies / Home Medications
Allergies reflects when Allergies were last updated in [employer].
Home Medications with original date entered in [employer]
Allergy/Medication List:
Allergies
Allergy/AdvReac Type Severity Reaction Status Date / Time
hydromorphone [From Dilaudid] Allergy Tongue Verified 10/24/24 08:50
Swelling
Home Medications
amlodipine 10 mg tablet 10 mg PO DAILY ##30 07/02/18
aspirin 81 mg chewable tablet 81 mg PO DAILY ##30 07/06/18
atorvastatin 80 mg tablet 80 mg PO QPM ##60 07/06/18
ergocalciferol (vitamin D2) 1,250 mcg (50,000 unit) capsule 1,250 mcg PO HURD Supplement 09/30/24
hydrochlorothiazide 12.5 mg tablet 12.5 mg PO DAILY Fluid Retention/Swelling 09/30/24
lisinopril 40 mg tablet 40 mg PO HS Blood Pressure 09/30/24
acetaminophen 325 mg tablet 650 mg (2 x 325 mg) PO Q4HPRN PRN mild pain/HICKS/temp> 100.4F #0 tabs 10/07/24
amoxicillin 875 mg-potassium clavulanate 125 mg tablet 1 tab PO BID 14 days #28 tabs 10/07/24
insulin aspart U-100 100 unit/mL (3 mL) subcutaneous pen 10 unit SC AC Diabetes 10/16/24
insulin glargine 100 unit/mL subcutaneous solution (Lantus U-100 Insulin) 6 unit SC QPM Diabetes 10/16/24
insulin glargine 100 unit/mL subcutaneous solution (Lantus U-100 Insulin) 7 unit SC DAILY Diabetes 10/16/24
tramadol 50 mg tablet 50 mg PO HS Pain 10/16/24
apixaban 5 mg tablet (Eliquis) 5 mg PO BID 1 month #60 tabs 10/21/24
Review of Systems
-
A 12 point ROS was completed and negative except as noted: Yes
Constitutional: Denies Fever, Weight Gain, Weight Loss, Fatigue or Sleep Disturbance
EENT: Denies Tearing, Sore Throat, Mouth Pain, Mouth Swelling or Runny Nose
Respiratory: Denies Cough, Hemoptysis or Trouble Breathing
Cardiac: Denies Chest Pain, Diaphoresis, Palpitations or Syncope
Abdomen/GI: Denies Abdominal Pain, Nausea, Vomiting, Diarrhea, Constipated, Bloody Stools or Black Stools
: Denies Dysuria, Frequency, Flank Pain, Incontinence, Difficulty Voiding, Urgency, Bleeding or Dark Urine
Musculoskeletal: Reports Joint Pain; Denies Joint Swelling, Muscle Pain, Muscle Stiffness or Edema
Skin: Denies Itching or Rash
Neurological: Denies Dizzy, Headache, Weakness or Numbness
Endocrine: Denies Polyuria, Polydipsia or Temp Intolerance
Hematologic/Lymphatic: Denies Bleeding, Swollen Glands or Bruising
Psych: Reports Calm; Denies Depression, Anxiety or Panic Disorder
Physical Exam
Vital Signs
Vital Signs
Temp Pulse Resp BP Pulse Ox
98.4 F 79 18 137/53 98
11/12/24 10:57 11/12/24 10:57 11/12/24 10:57 11/12/24 10:58 11/12/24 10:57
Physical Exam
General: Well Developed, Well Nourished, No Apparent Distress, Comfortable and Good Appetite; No Pain, Chills or Sweats
HEENT: NormoCephalic, Moist mucous membranes, Atraumatic, Good Dentition, PERRLA, Nose Appears Normal and Ears Appear Normal
Respiratory: Clear
Cardiac: S1/S2 and Regular Rhythm
Breast: Deferred by me
GI: Soft, Non Tender, Non Distended and Normal Bowel Sounds
Genito-urinary: Deferred by me
Musculoskeletal: No Clubbing, No Cyanosis, No Edema and Other (Right third toe dark discoloration with purulent drainage)
Skin: Warm; No Rash, Jaundice, Ulcers, Lesions or Decubitus Ulcers
Neuro: Awake, Alert, Oriented, AO x 3, No Motor Deficits, Nonfocal/grossly intact and Cranial Nerves Intact
Hematologic/Lymphatic: No Lymphadenopathy
Psych: Calm
Laboratory Results
-
Labs
11/12/24 11:30
11/12/24 11:30
Data Reviewed
-
Diagnostic Radiology: Report Reviewed by me
CT Scan: Report Reviewed by me
Medical Tests (Nuc Med, Echo, EKG etc): Report Reviewed by me
Lab Data: Labs Reviewed by me
Old Records: Reviewed
Impression/Plan
-
IMPRESSION:
Patient is a pleasant 68 years old with history of diabetes mellitus, hypertension, hyperlipidemia, CVA, peripheral vascular disease who came to the ER with worsening right third toe dark discoloration and gangrene.
Patient was started on Augmentin as outpatient with no relief.
Visiting nurse noticed increased purulent drainage and color advised to come to the ER.
Started on vancomycin and Zosyn in the ER, admitted with podiatry/vascular surgery Cx.
Assessment/plan:
Worsening gangrene of right 3rd toe
Post podiatry and vascular surgery consulted in the ER.
X-ray done, report pending.
Ultrasound pending.
Started on IV vancomycin/Zosyn,
PT/OT,
Peripheral arterial disease-
Vascular surgery consult
Diabetes, type 1 with neuropathy
A1C 7.3 on October 01, 2024
Continue Lantus/ Novolog
breakfast Lunch Dinner
Lantus 7 6
NovoLog 10 10 10
Insulin sliding scale
Anemia likely of chronic disease-
Hemoglobin stable
CKD 3B.
Creatinine stabke
Essential Hypertension
Continue home med
Hyperlipidemia
Continue home atorvastatin 80mg qPM, ASA 81mg qD.
History of CVA (2018)
Continue aspirin/atorvastatin
Code status: Full
DVT proph-- Lovenox (Eliquis on hold)
Diet: Diabetic.
Total time spent on today's encounter was 75 minutes which included time spent in counseling the patient/family regarding diagnosis and treatment plan as listed above, goals of care, and symptom management. Case was discussed with nursing staff,
specialists, and care coordinators/case management. All labs and imaging personally reviewed by me. Remainder the time spent in detailed review of previous records, lab data, imaging, and other medical provider documentation.
[2024-11-12 11:47] LABS: % Basophils 0.4 % (0-2); % Eosinophils 1.2 % (0-6); % Immature Granulocytes 0.3 % (0-0.5); % Lymphocytes 17.2 % (20.5-51.1); % Monocytes 9.4 % (1.7-9.3); % Neutrophils 71.5 % (42.2-75.2); Absolute Eosinophils 0.1 10^3/uL (0-0.7); Absolute Lymphocytes 1.6 10^3/uL (1.2-3.4); Absolute Monocytes 0.9 10^3/uL (0.1-0.6); Absolute Neutrophils 6.4 10^3/uL (1.4-6.5); Hematocrit 31.4 % (37.0-47.0); Hemoglobin 10.5 g/dL (12.0-16.0); Mean Corp Hgb Conc. 33.4 g/dL (33.0-37.0); Mean Corpuscular Hgb 29.2 pg (27.0-31.0); Mean Corpuscular Volume 87.2 fL (81.0-99.0); Mean Platelet Volume 9.9 fL (7.4-10.4); Nucleated Red Blood Cells % 0 %; Platelet Count 249 10^3/uL (130-400); Red Cell Dist. Width 13.2 % (11.5-14.5)
[2024-11-12 12:00] LABS: ALT (SGPT) 15 U/L (0-35); AST (SGOT) 36 U/L (14-36); Alkaline Phosphatase 87 U/L (38-126); Blood Urea Nitrogen 28 mg/dl (7-17); Calcium 9.9 mg/dl (8.4-10.2); Carbon Dioxide 24 mmol/L (22-30); Chloride 105 mmol/L (98-107); Estimated Creatinine Clearance 46 ml/min; Glucose 152 mg/dl (70-99); Potassium 4.4 mmol/L (3.5-5.1); Sodium 139 mmol/L (135-145); Total Bilirubin 1.5 mg/dl (0.2-1.3); Total Protein 7.2 g/dl (6.3-8.2); eGFR 49.92
[2024-11-12] MEDS: ZOSYN 50 IV ×2 (12:01→18:07)
[2024-11-12] MEDS: VANCOCIN 530 MG IV (12:19)
[2024-11-12 12:33] LABS: Erythrocyte Sed Rate 22 mm/hour (0-20)
--- NOTE | 2024-11-12 12:40 | W.PN.UPDATE ---
Update Note
Progress Note Update
Seen and examined with BRADLEY Franz and BRADLEY Sheridan in the emergency room. Right third toe gangrene with some malodorous drainage. Status post TADV/Limflow procedure earlier this month. Immediate thrombosis of stents required repeat angiography,
catheter directed pharmacomechanical thrombectomy, extension stent placement.
On exam she is nontoxic-appearing. No acute distress. Right foot is warm. She has a palpable pulse on the dorsum of her foot in the vicinity of the dorsalis pedis artery (likely in the vein). Third toe with dry gangrene. Possibly some
malodorous drainage. Plan/ Patent Limflow status based on exam. Would obtain duplex to confirm. Recommend podiatry evaluation for source control with possible amputation (open amputation) of the dry gangrenous infected toe. Would leave open, and
await further demarcation before definitive foot procedures performed.
--- NOTE | 2024-11-12 12:45 | CON.VAS ---
Consultation
Consultation Request
Date/Time Consultation Performed: 11/12/2024 1215
Requesting Provider: Patrick Lopez PA-C
Performing Provider: GORAN Vazquez for Pablo Boyce MD
Reason for Consultation: Right foot third digit gangrene
Medical History
-
Chief Complaint: Right foot third digit gangrene
History of Present Illness:
This a 68-year-old female with significant past medical history for high blood pressure, diabetes, dyslipidemia, left hemisphere stroke, and peripheral arterial disease who presents to [facility] with reports of worsening right foot third
digit gangrene with increased drainage and malodor. Patient is well-known to our service for undergoing recent limflow procedure in efforts for limb preservation of right lower extremity. She endorses that she called our vascular surgery office
late last week indicating worsening drainage from her right third digit toe with known nonhealing wound, office staff prescribed p.o. antibiotics. However, today visiting nurse was at her house and noted no change in her drainage and malodorous
wound prompting ED evaluation. Patient denies any accompanying symptoms other than slightly increased pain at her right foot. Denies nausea, vomiting, fever, chills, cough.
Past Medical History
Past Medical History: CVA, HTN, IDDM and Other (Dyslipidemia)
Past Surgical History: Other (RLE angiogram, RLE limflow )
Social History
Tobacco: Non-Smoker
Alcohol: Occasional
Allergies / Home Medications
Allergy/AdvReac Type Severity Reaction Status Date / Time
hydromorphone [From Dilaudid] Allergy Tongue Verified 10/24/24 08:50
Swelling
�Medication �Instructions �Recorded �Confirmed �Type
amlodipine 10 mg tablet 10 mg PO DAILY ##30 07/02/18 11/12/24 Rx
aspirin 81 mg chewable tablet 81 mg PO DAILY ##30 07/06/18 11/12/24 Rx
atorvastatin 80 mg tablet 80 mg PO QPM ##60 07/06/18 11/12/24 Rx
ergocalciferol (vitamin D2) 1,250 1,250 mcg PO HURD Supplement 09/30/24 11/12/24 History
mcg (50,000 unit) capsule
hydrochlorothiazide 12.5 mg tablet 12.5 mg PO DAILY Fluid 09/30/24 11/12/24 History
Retention/Swelling
lisinopril 40 mg tablet 40 mg PO HS Blood Pressure 09/30/24 11/12/24 History
acetaminophen 325 mg tablet 650 mg (2 x 325 mg) PO Q4HPRN PRN 10/07/24 11/12/24 Rx
mild pain/HICKS/temp> 100.4F #0 tabs
amoxicillin 875 mg-potassium 1 tab PO BID 14 days #28 tabs 10/07/24 11/12/24 Rx
clavulanate 125 mg tablet
insulin aspart U-100 100 unit/mL 10 unit SC AC Diabetes 10/16/24 11/12/24 History
(3 mL) subcutaneous pen
insulin glargine 100 unit/mL 6 unit SC QPM Diabetes 10/16/24 11/12/24 History
subcutaneous solution (Lantus
U-100 Insulin)
insulin glargine 100 unit/mL 7 unit SC DAILY Diabetes 10/16/24 11/12/24 History
subcutaneous solution (Lantus
U-100 Insulin)
tramadol 50 mg tablet 50 mg PO HS Pain 10/16/24 11/12/24 History
apixaban 5 mg tablet (Eliquis) 5 mg PO BID 1 month #60 tabs 10/21/24 11/12/24 Rx
Review of Systems
-
History Source: Patient
Constitutional: Reports No Symptoms
EENT: Reports No Symptoms
Respiratory: Reports No Symptoms
Cardiac: Reports No Symptoms
Vascular: Reports Leg Pain / Claudication
Abdomen/GI: Reports No Symptoms
: Reports No Symptoms
Musculoskeletal: Reports No Symptoms
Skin: Reports Other (Ongoing right foot third digit dry gangrene with increased drainage and malodor)
Neurological: Reports No Symptoms
Endocrine: Reports No Symptoms
Physical Exam
Vital Signs
Temp Pulse Resp BP Pulse Ox
98.4 F 79 18 137/53 98
11/12/24 10:57 11/12/24 10:57 11/12/24 10:57 11/12/24 10:58 11/12/24 10:57
Lab Results
11/12/24 11:30
11/12/24 11:30
Physical Exam
General: No Apparent Distress
HEENT: Normocephalic, Anicteric and Atraumatic
Respiratory: Non Labored Respirations
Cardiac: Negative JVD
GI: Soft, Non Tender and Non Distended
Musculoskeletal: No Edema and Other (Right foot with palpable DP pulse)
Skin: Warm and Other (Right foot third digit gangrene, purulent drainage and malodorous)
Neuro: AO x 3
Assessment / Plan
-
Assessment: 68-year-old female with peripheral arterial disease and chronic right foot third digit gangrene wound s/p right limflow procedure for limb preservation
Plan:
Patent Limflow status based on exam. Would obtain duplex to confirm. Recommend podiatry evaluation for source control with possible amputation (open amputation) of the dry gangrenous infected toe. Would leave open, and await further demarcation
before definitive foot procedures performed.
Patient seen and examined with attending Dr. Pablo Boyce
--- NOTE | 2024-11-12 13:29 | PHA.VAN.IN ---
Assessment
- Assessment
Renal Function: Appears similar to baseline
Concomitant Antimicrobials: piperacillin/tazobactam
AUC Dosing Plan
- Dosing Variables
Dosing Weight (kg): 77
Dosing CrCl (ml/min): 46
Vd coefficient (L/kg): 0.7
- Empiric Dosing
Initial / Loading Dose: 1500mg - 11/12 12:19
Maintenance Regimen: Vanc 1000mg Q24H starting 11/13 0600
Estimated AUC (mcg*h/mL): 450
Estimated Peak (mcg*h/mL): 29
Estimated Trough (mcg/ml): 11.1
Estimated Half Life (H): 16.3
- Monitoring
No levels ordered at this time: consider levels in next few days
Pharmacokinetics Vancomycin I
- -
Patient Age: 68
Patient Sex: Female
Vancomycin Day #: 1
Indication: Bone And Joint
Requesting Provider: Dr. Banks
Pertinent Antimicrobial Allergies:
no pertinent antibiotic allergies
Height / Weight:
Height 5 ft 4 in
Actual Weight 76.657 kg
Pertinent Past Medical History: DM I, PAD, CKD III
- Vital Signs / Lab Results
Temp Pulse Resp BP Pulse Ox
98.4 F 79 18 137/53 98
11/12/24 10:57 11/12/24 10:57 11/12/24 10:57 11/12/24 10:58 11/12/24 10:57
Lab Results - Hematology
11/12/24
11:30
WBC 9.0
Lab Results - Chemistry
11/12/24
11:30
BUN 28 H
Creatinine 1.2 H
Estimated Creat Clear 46
Albumin 4.0
[2024-11-12 13:55] VITALS: BP 138/78
[2024-11-12 14:41] VITALS: BP 130/71; BMI 28.6
--- NOTE | 2024-11-12 14:46 | W.PN.SURGUPD ---
Surgical Update
Surgical Update
68 yo F with R toe gangrene s/p R DVA with Dr. Garcia presents with worsening R 3rd toe infection
-Continue IV antibiotics, appreciate ID input
-Radiographs show new osteomyelitis of the 3rd toe
-Plan for right 3rd toe amputation 11/13, please make patient NPO after midnight
[2024-11-12 16:24] LABS: Glucose - Point of Care 127 mg/dl (70-99)
[2024-11-12 16:52] LABS: Hematocrit 29.7 % (37.0-47.0); Hemoglobin 9.7 g/dL (12.0-16.0); Mean Corp Hgb Conc. 32.7 g/dL (33.0-37.0); Mean Corpuscular Hgb 28.8 pg (27.0-31.0); Mean Corpuscular Volume 88.1 fL (81.0-99.0); Mean Platelet Volume 9.8 fL (7.4-10.4); Platelet Count 220 10^3/uL (130-400); Red Blood Cell Count 3.37 10^6/uL (4.20-5.40); Red Cell Dist. Width 13.1 % (11.5-14.5); White Blood Cell Count 8.5 10^3/uL (4.8-10.8)
[2024-11-12 17:05] LABS: APTT 36.4 Sec (23.4-35.0)
[2024-11-12] MEDS: NOVOLOG FLEXPEN 10 UNITS SC (17:05)
[2024-11-12] MEDS: NOVOLOG FLEXPEN-LOW RESISTANCE SC (17:05)
[2024-11-12] MEDS: LANTUS 0.06 UNITS SC (17:07)
[2024-11-12] MEDS: LIPITOR 80 MG PO (17:10)
--- NOTE | 2024-11-12 17:26 | PTCARENOTE ---
Received patient from ER AAOx3. Pt oriented to room . IV Vancomycin running on arrival to unit without difficulty. pt OOB to bathroom with a steady gait. Tolerated diet well. Offered no complaints. Made patient comfortable. Cont to assess patient
status.
[2024-11-12 19:21] VITALS: BP 119/52
[2024-11-12] MEDS: HEPARIN 25000 UNITS/250 ML IV (19:55)
[2024-11-12] MEDS: ZESTRIL 40 MG PO (20:58)
[2024-11-12] MEDS: ULTRAM 50 MG PO (20:58)
[2024-11-12 22:02] LABS: Glucose - Point of Care 166 mg/dl (70-99)
[2024-11-12 23:39] VITALS: BP 132/59
[2024-11-13] VITALS (11 sets, daily range): BP systolic 108–139; BP diastolic 49–83
[2024-11-13] MEDS: ZOSYN 50 IV ×4 (00:03→18:15)
[2024-11-13 03:16] LABS: APTT > 200 Sec (23.4-35.0)
[2024-11-13] MEDS: VANCOCIN 200 IV (05:13)
[2024-11-13 05:55] LABS: Glucose - Point of Care 151 mg/dl (70-99)
[2024-11-13 06:22] LABS: Hematocrit 28.9 % (37.0-47.0); Hemoglobin 9.6 g/dL (12.0-16.0); Mean Corp Hgb Conc. 33.2 g/dL (33.0-37.0); Mean Corpuscular Hgb 28.7 pg (27.0-31.0); Mean Corpuscular Volume 86.3 fL (81.0-99.0); Mean Platelet Volume 10.3 fL (7.4-10.4); Platelet Count 228 10^3/uL (130-400); Red Blood Cell Count 3.35 10^6/uL (4.20-5.40); White Blood Cell Count 7.8 10^3/uL (4.8-10.8)
[2024-11-13 06:47] LABS: Blood Urea Nitrogen 25 mg/dl (7-17); Calcium 9.5 mg/dl (8.4-10.2); Carbon Dioxide 25 mmol/L (22-30); Chloride 104 mmol/L (98-107); Estimated Creatinine Clearance 46 ml/min; Glucose 130 mg/dl (70-99); Magnesium 2.1 mg/dl (1.6-2.3); Potassium 4.5 mmol/L (3.5-5.1); Sodium 139 mmol/L (135-145); eGFR 49.92
--- NOTE | 2024-11-13 07:36 | W.PN.SURGUPD ---
Surgical Update
Surgical Update
68 yo F s/p R open 3rd toe amputation
-R 3rd toe amputation site packed open with betadine DSD, please reinforce as needed
-Dressings to be changed daily started 11/15 as follows: Please apply betadine packed 4x4 gauze pads to amputation site, lightly wrap with webril and kerlix
-Continues antibiotics per ID recs, 1x OR culture and 1x OR pathology specimen obtained
-Will await further maturation of DVA from vascular surgery before definitive amputation, likely transmetatarsal amputation
-Minimal heel WB to RLE acceptable
[2024-11-13 07:45] LABS: Glucose - Point of Care 215 mg/dl (70-99)
[2024-11-13 08:25] LABS: Glucose - Point of Care 243 mg/dl (70-99)
--- NOTE | 2024-11-13 08:43 | PHA.VAN.FU ---
Vancomycin Assessment / Plan
- Assessment
Renal Function: Stable
WBC's are: WNL
In the past 24 hrs, patient has been: Afebrile
Concomitant Antimicrobials: piperacillin/tazobactam
- Dosing Plan
Continue: Vanc 1000mg Q24H
- Monitoring Plan
No level(s) ordered at this time: consider levels in next few days
- Follow Up
Pharmacy will continue to follow.
Vancomycin Follow UP
- -
Patient Age: 68
Patient Sex: Female
Vancomycin Day #: 2
Indication: Bone And Joint
Requesting Provider: Dr. Banks
Pertinent Antimicrobial Allergies:
no pertinent antibiotic allergies
Height / Weight:
Height 5 ft 4 in
Actual Weight 75.495 kg
Pertinent Past Medical History: DM I, PAD, CKD III
- Vital Signs / Lab Results
Temp Pulse Resp BP Pulse Ox
98.1 F 75 18 129/83 99
11/13/24 08:27 11/13/24 08:27 11/13/24 08:27 11/13/24 08:27 11/13/24 08:27
Lab Results - Hematology
11/12/24 11/12/24 11/13/24
11:30 16:43 05:22
WBC 9.0 8.5 7.8
Lab Results - Chemistry
11/12/24 11/13/24
11:30 05:22
BUN 28 H 25 H
Creatinine 1.2 H 1.2 H
Estimated Creat Clear 46 46
Albumin 4.0
[2024-11-13 08:54] LABS: Glycohemoglobin (HgbA1c) 6.9 % (4.0-5.6)
[2024-11-13] MEDS: NOVOLOG FLEXPEN-LOW RESISTANCE 2 UNITS SC (09:09)
[2024-11-13] MEDS: NOVOLOG FLEXPEN 10 UNITS SC ×2 (09:09→17:00)
[2024-11-13] MEDS: ORETIC 12.5 MG PO (09:10)
[2024-11-13] MEDS: NORVASC 10 MG PO (09:10)
[2024-11-13] MEDS: LOW STRENGTH ASPIRIN 81 MG PO (09:10)
[2024-11-13] MEDS: LANTUS 0.07 UNITS SC (09:11)
--- NOTE | 2024-11-13 11:47 | W.PN.HOSP.TC ---
Today's Communication/Plan
-
ID consult
Assessment / Plan
Assessment / Plan
Impression:
Patient is a pleasant 68 years old with history of diabetes mellitus, hypertension, hyperlipidemia, CVA, peripheral vascular disease who came to the ER with worsening right third toe dark discoloration and gangrene.
Patient was started on Augmentin as outpatient with no relief.
Visiting nurse noticed increased purulent drainage and color advised to come to the ER.
Started on vancomycin and Zosyn in the ER, admitted with podiatry/vascular surgery Cx.
s/p R 3rd toe amputation site
ID consult.
Assessment/plan:
Worsening gangrene of right 3rd toe/ Acute osteomyelitis.
S/P R 3rd toe amputation.
Post podiatry and vascular surgery consulted in the ER.
X-ray shows:
There are new erosive changes of the proximal phalanx of the third toe which likely represent osteomyelitis.
Ultrasound Doppler shows:
1. Limflow stent is patent. Mild elevation of peak systolic velocity within the proximal stent suggestive of mild stenosis.
2. Right toe brachial index 0.16 (not measurable on prior study dated 10/24/2024
Started on IV vancomycin/Zosyn,
PT/OT,
Appreciate both podiatry and vascular surgery input.
Infectious disease consulted.
Peripheral arterial disease-
Vascular surgery consult
Eliquis on hold, heparin drip continued
Diabetes, type 1 with neuropathy
A1C 7.3 on October 01, 2024
Continue Lantus/ Novolog
breakfast Lunch Dinner
Lantus 7 6
NovoLog 10 10 10
Insulin sliding scale
Anemia likely of chronic disease-
Hemoglobin stable
CKD 3B.
Creatinine stabke
Essential Hypertension
Continue home med
Hyperlipidemia
Continue home atorvastatin 80mg qPM, ASA 81mg qD.
History of CVA (2018)
Continue aspirin/atorvastatin
Code status: Full
DVT proph-- Heparin drip (Eliquis on hold)
Diet: Diabetic.
Total time spent on today's encounter was 65 minutes which included time spent in counseling the patient/family regarding diagnosis and treatment plan as listed above, goals of care, and symptom management. Case was discussed with nursing staff,
specialists, and care coordinators/case management. All labs and imaging personally reviewed by me. Remainder the time spent in detailed review of previous records, lab data, imaging, and other medical provider documentation.
Anticipated Discharge: > 48 hours
Subjective/Interval History
-
Date of Service: November 13, 2024
Patient seen and examined at bedside, family at bedside.
Denies any chest pain or shortness of breath, no abdominal pain, no nausea, no vomiting, no diarrhea or constipation.
Status postR 3rd toe amputation.
Objective Data
-
Labs:
Laboratory Results
11/13/24 11/13/24 11/13/24
02:14 05:22 14:30
WBC 7.8
Hgb 9.6 L
Hct 28.9 L
Plt Count 228
APTT > 200 H* Pending
Sodium 139
Potassium 4.5
Chloride 104
Carbon Dioxide 25
BUN 25 H
Creatinine 1.2 H
Glucose 130 H
Calcium 9.5
Vital Signs:
Vital Signs
Temp Pulse Resp BP Pulse Ox
98.2 F 62 16 108/49 98
11/13/24 11:30 11/13/24 11:30 11/13/24 11:30 11/13/24 11:30 11/13/24 11:30
I&O
11/12/24 11/13/24 11/14/24
06:59 06:59 06:59
Intake Total 830 / 830 180 / 180
Balance 830 / 830 180 / 180
Physical Exam
-
General: Well Developed, Well Nourished, No Apparent Distress and Conversant; Negative Fever, Chills or Sweats
HEENT: Normocephalic and Atraumatic
Respiratory: Clear to Auscultation and Non Labored Respirations; Negative Wheezes or Rhonchi
Cardiac: Regular Rhythm and S1/S2
Breast: Deferred by me
GI: Soft, Nontender, Nondistended and Normal Bowel Sounds
Genito-urinary: No Costovertebral Tender
Musculoskeletal: No Clubbing, No Cyanosis, Edema, Right Lower Extrem (+2), Edema, Left Lower Extrem (trace) and Other (Right foot dressing.)
Skin: Warm, Dry and Other
Neuro: Awake, Alert and Nonfocal/Grossly Intact
Psych: Calm
Data Reviewed
-
Diagnostic Radiology: Image personally visualized and interpreted and Report Reviewed by me
CT Scan: Image personally visualized and interpreted and Report Reviewed by me
Ultrasound: Image personally visualized and interpreted and Report Reviewed by me
MRI: Image personally visualized and interpreted and Report Reviewed by me
Medical Tests (Nuc Med, Echo etc): Image personally visualized and interpreted and Report Reviewed by me
Labs: Labs Reviewed by me
Old Records: Reviewed
[2024-11-13] MEDS: ULTRAM 50 MG PO ×2 (12:07→21:22)
[2024-11-13 13:27] LABS: Glucose - Point of Care 155 mg/dl (70-99)
[2024-11-13] MEDS: NOVOLOG FLEXPEN-LOW RESISTANCE SC (13:30)
[2024-11-13] MEDS: NOVOLOG FLEXPEN SC (13:30)
[2024-11-13 15:29] LABS: APTT 153.7 Sec (23.4-35.0)
--- NOTE | 2024-11-13 15:50 | PTCARENOTE ---
Received patient this am from PACU. Please see assessment flow sheet for documentation. Spoke Vascular team, Heparin drip restarted at 11/hr when patient arrived to floor from PACU as ordered. PTT result from 1430 draw 153.7. Heparin Drip placed on
hold for one hour. Heparin will be restarted at 1630 at 9/hr as per protocol. Dr. Newell made aware. Pt complained of pain in right foot. Pt medicated with Ultram with relief. Made patient comfortable. Cont to assess patient status.
--- NOTE | 2024-11-13 16:12 | CON.ID ---
Consultation
-
Date/Time Consultation Requested: 11/13/2024 0745
Date/Time Consultation Performed: 11/13/2024 1540
Requesting Provider: Dr. Banks
Performing Provider: Dr. Callahan
Reason for Consultation: Right third toe osteomyelitis
Chief Complaint / Past History
History of Present Illness
Ledy Ferrer is a 68-year-old female with a significant past medical history of DM, HDL and PAD being evaluated at the request of Dr. Banks in regards to right third toe osteomyelitis. History is obtained from chart review, along with patient
interview.
The patient is known to the Infectious Diseases service, having been seen in mid September. At that point in time she had developed some left leg swelling 1 week prior to admission and around the same time developed some darkening of her right third
toe, with progression to darkening of the tissues. During that hospitalization she underwent right leg angiogram. She was discharged on 10/07 on a course of Augmentin in an attempt to control any local infection, although the area appeared overall
with dry gangrene.
The patient underwent limb flow procedure on 10/20. She reports that she was seen in the office earlier this week, and the toe seem to be draining, and had some malodor. Hospitalization was offered, but she elected to go on oral Augmentin. She was
on antibiotics for 2 days, but then presented to the hospital given concern for worsening infection. She was placed on IV antibiotics. She is currently status post third toe amputation, but may need additional metatarsal resection. Infectious
Diseases is asked to comment on further antimicrobial therapy.
Past History
Additional Past Medical History:
DM type I
HTN
CVA
PAD
HLD
Additional Past Surgical History:
RLE LimFlow procedure
Allergy History:
hydromorphone [From Dilaudid] Allergy (Verified 10/24/24 08:50)
Tongue Swelling
Medications Reviewed: Yes
Current Antibiotics:
Vancomycin
Zosyn 3.375 g IV every 6 hours
Social History
Tobacco: Non-Smoker
Alcohol: Occasional
Drug: None
Personal:
Living: Alone
Employment: Retired
Family History
Family History: Not Pertinent
Review of Systems
Vital Signs
Temp Pulse Resp BP Pulse Ox
98 F 65 18 124/52 99
11/13/24 15:23 11/13/24 15:23 11/13/24 15:23 11/13/24 15:23 11/13/24 15:23
Physical Exam
Physical Exam
Constitutional: No Acute Distress, Comfortable and Non-toxic
Eyes: No Conjunctival Hemorrhage and Sclera Anicteric
Cardiovascular: Regular Rate and S1/S2; Negative S3/S4
Pulmonary: Clear; Negative Wheezes, Rales or Rhonchi
Gastrointestinal: Soft, Non Tender, Non Distended and Normal Bowel Sounds
Wound: Other (right foot dressed. Mild erythema extending up distal calf area)
Neurological: Awake and Alert
Psychological: Calm
Lab / Diagnostic Study Results
11/13/24 05:22
11/13/24 05:22
Abs Immat Gran (auto) 0.0 10^3/uL (0-0.05) 11/12/24 11:30
Absolute Neuts (auto) 6.4 10^3/uL (1.4-6.5) 11/12/24 11:30
Absolute Lymphs (auto) 1.6 10^3/uL (1.2-3.4) 11/12/24 11:30
Absolute Monos (auto) 0.9 10^3/uL (0.1-0.6) H 11/12/24 11:30
Absolute Basos (auto) 0.0 10^3/uL (0-0.2) 11/12/24 11:30
Immature Gran % 0.3 % (0-0.5) 11/12/24 11:30
Neutrophils % 71.5 % (42.2-75.2) 11/12/24 11:30
Lymphocytes % 17.2 % (20.5-51.1) L 11/12/24 11:30
Monocytes % 9.4 % (1.7-9.3) H 11/12/24 11:30
Eosinophils % 1.2 % (0-6) 11/12/24 11:30
Basophils % 0.4 % (0-2) 11/12/24 11:
ESR 22 mm/hour (0-20) H 11/12/24 11:30
C-Reactive Protein 26.70 mg/L (0.0-10.00) H 11/12/24 11:30
Microbiology Results
Micro:
11/13/24 07:21 Wound Culture - Pending
Toe Gram Stain - Preliminary
11/13/24 07:21 Anaerobic Culture - Pending
Toe
Imaging
11/12/2024 LimFlow : Limflow stent is patent. Mild elevation of peak systolic velocity within the proximal stent suggestive of mild stenosis. Right toe brachial index 0.16 (not measurable on prior study dated 10/24/2024).
Assessment / Plan
Right toe osteomyelitis / gangrene; s/p amputation
SSTI right lower extremity
DM type I
HTN
CVA
PAD
HLD
Recommendations:
Continue with Zosyn.
No prior history of MRSA; may discontinue further vancomycin.
Intraoperative cultures have been obtained; will await further data.
Local care to the wound bed.
Monitor white count and temperature curve.
Await further culture data to guide further antimicrobial selection and potential de-escalation.
[2024-11-13 16:51] LABS: Glucose - Point of Care 191 mg/dl (70-99)
[2024-11-13] MEDS: NOVOLOG FLEXPEN-LOW RESISTANCE 1 UNITS SC (17:00)
--- NOTE | 2024-11-13 17:01 | CM ---
Alert awake oriented patient who lives alone in a 2 story home with 5 steps to enter and 10 steps to bed/bathroom. She is independent in activates of daily living.She does not drive right now.She used a cane.
Had [facility] in past . No SNF hx
Pharmacy [facility]
PCP Dr Riojas
PLAN Onging dc planning
[2024-11-13] MEDS: LIPITOR 80 MG PO (17:04)
[2024-11-13] MEDS: LANTUS 0.06 UNITS SC (17:04)
[2024-11-13 21:14] LABS: Glucose - Point of Care 252 mg/dl (70-99)
[2024-11-13] MEDS: TYLENOL 650 MG PO (21:22)
[2024-11-13] MEDS: ZESTRIL 40 MG PO (22:32)
[2024-11-13 22:57] LABS: APTT 133.2 Sec (23.4-35.0)
[2024-11-14] MEDS: HEPARIN 25000 UNITS/250 ML IV (00:38)
[2024-11-14] MEDS: ZOSYN 50 IV ×4 (00:40→17:33)
[2024-11-14 03:50] VITALS: BP 129/52
[2024-11-14 07:00] VITALS: BP 125/47
[2024-11-14 07:14] LABS: Hemoglobin 10.2 g/dL (12.0-16.0); Mean Corp Hgb Conc. 32.9 g/dL (33.0-37.0); Mean Corpuscular Hgb 28.3 pg (27.0-31.0); Mean Corpuscular Volume 86.1 fL (81.0-99.0); Mean Platelet Volume 10.4 fL (7.4-10.4); Platelet Count 224 10^3/uL (130-400); Red Cell Dist. Width 12.6 % (11.5-14.5); White Blood Cell Count 10.3 10^3/uL (4.8-10.8)
[2024-11-14 07:19] LABS: Glucose - Point of Care 350 mg/dl (70-99)
[2024-11-14] MEDS: NOVOLOG FLEXPEN 10 UNITS SC ×3 (08:05→17:32)
[2024-11-14] MEDS: NOVOLOG FLEXPEN-LOW RESISTANCE 5 UNITS SC (08:05)
[2024-11-14 08:06] VITALS: BP 125/47
[2024-11-14] MEDS: LOW STRENGTH ASPIRIN 81 MG PO (08:06)
[2024-11-14] MEDS: NORVASC 10 MG PO (08:06)
[2024-11-14] MEDS: ORETIC 12.5 MG PO (08:06)
[2024-11-14] MEDS: LANTUS 0.07 UNITS SC (08:10)
--- NOTE | 2024-11-14 09:42 | W.PN.ID1 ---
Date of Service
Date of Service: November 14, 2024
Today's Communication
Continue antibiotics.
Assessment / Plan
Right toe osteomyelitis / gangrene; s/p amputation
SSTI right lower extremity
DM type I
HTN
CVA
PAD
HLD
Recommendations:
Continue with Zosyn.
Intraoperative cultures have been obtained; will await further data.
Local care to the wound bed.
Monitor white count and temperature curve.
Await further culture data to guide further antimicrobial selection and potential de-escalation.
Check postop plain film.
Await pathology.
Chief Complaint
-: Other (Osteomyelitis)
Subjective / Review of Systems
Review of Systems: No Fever and No Chills
Vital Signs / Physical Exam
Vital Signs
Vital Signs
Temp Pulse Resp BP Pulse Ox
97.8 F 64 18 125/47 100
11/14/24 07:00 11/14/24 08:06 11/14/24 07:00 11/14/24 08:06 11/14/24 07:00
Physical Exam
Constitutional: No Acute Distress, Comfortable and Non-toxic
Eyes: Sclera Anicteric
Cardiovascular: S1/S2; Negative S3/S4
Pulmonary: Non Labored
Gastrointestinal: Soft and Non Tender
Extremities: Edema (2+ RLE)
Wound: Other (right foot dressed. mild erythema up leg.)
Neurological: Awake and Alert
Psychological: Calm
Objective Data
Lab Data
Lab Results
11/14/24 06:51
ESR 22 mm/hour (0-20) H 11/12/24 11:30
APTT 98.0 Sec (23.4-35.0) H 11/14/24 06:51
Estimated Creat Clear 46 ml/min 11/13/24 05:22
Total Bilirubin 1.5 mg/dl (0.2-1.3) H 11/12/24 11:30
AST 36 U/L (14-36) 11/12/24 11:30
ALT 15 U/L (0-35) 11/12/24 11:30
Alkaline Phosphatase 87 U/L (38-126) 11/12/24 11:30
C-Reactive Protein 26.70 mg/L (0.0-10.00) H 11/12/24 11:30
Most recent labs reviewed.
Micro Results:
11/13/24 07:21 Wound Culture - Pending
Toe Gram Stain - Preliminary
11/13/24 07:21 Anaerobic Culture - Pending
Toe
Imaging:
11/12/24 Plain film right foot: New erosive changes of the proximal phalanx of the third toe which are likely represents osteomyelitis noted. Please see full dictation for additional detail. Film personally viewed.
[2024-11-14 10:10] LABS: Blood Urea Nitrogen 35 mg/dl (7-17); Calcium 9.4 mg/dl (8.4-10.2); Carbon Dioxide 15 mmol/L (22-30); Chloride 103 mmol/L (98-107); Estimated Creatinine Clearance 39 ml/min; Glucose 314 mg/dl (70-99); Potassium 4.8 mmol/L (3.5-5.1); Sodium 134 mmol/L (135-145); eGFR 41.49
--- NOTE | 2024-11-14 10:53 | W.PN.HOSP.TC ---
Today's Communication/Plan
-
Continue antibiotics
Possible angiogram on Sunday
Assessment / Plan
Assessment / Plan
Impression:
Patient is a pleasant 68 years old with history of diabetes mellitus, hypertension, hyperlipidemia, CVA, peripheral vascular disease who came to the ER with worsening right third toe dark discoloration and gangrene.
Patient was started on Augmentin as outpatient with no relief.
Visiting nurse noticed increased purulent drainage and color advised to come to the ER.
Started on vancomycin and Zosyn in the ER, admitted with podiatry/vascular surgery Cx.
s/p R 3rd toe amputation site
ID consulted
Vascular surgery consulted, for angiogram on Sunday.
Assessment/plan:
Worsening gangrene of right 3rd toe/ Acute osteomyelitis.
S/P R 3rd toe amputation.
Post podiatry and vascular surgery consulted in the ER.
X-ray shows:
There are new erosive changes of the proximal phalanx of the third toe which likely represent osteomyelitis.
Ultrasound Doppler shows:
1. Limflow stent is patent. Mild elevation of peak systolic velocity within the proximal stent suggestive of mild stenosis.
2. Right toe brachial index 0.16 (not measurable on prior study dated 10/24/2024
Started on IV vancomycin/Zosyn,
PT/OT,
Appreciate both podiatry and vascular surgery input.
Infectious disease consulted.
5/2
Continue antibiotics, pending OR culture data
Peripheral arterial disease-
Vascular surgery consult
Eliquis on hold, heparin drip continued
5/2
Possible angiogram on Sunday
Diabetes, type 1 with neuropathy
A1C 7.3 on October 01, 2024
Continue Lantus/ Novolog
breakfast Lunch Dinner
Lantus 7 6
NovoLog 10 10 10
Insulin sliding scale
Anemia likely of chronic disease-
Hemoglobin stable
CKD 3B.
Creatinine stabke
Essential Hypertension
Continue home med
Hyperlipidemia
Continue home atorvastatin 80mg qPM, ASA 81mg qD.
History of CVA (2018)
Continue aspirin/atorvastatin
Code status: Full
DVT proph-- Heparin drip (Eliquis on hold)
Diet: Diabetic.
Total time spent on today's encounter was 65 minutes which included time spent in counseling the patient/family regarding diagnosis and treatment plan as listed above, goals of care, and symptom management. Case was discussed with nursing staff,
specialists, and care coordinators/case management. All labs and imaging personally reviewed by me. Remainder the time spent in detailed review of previous records, lab data, imaging, and other medical provider documentation.
Anticipated Discharge: > 48 hours
Subjective/Interval History
-
Date of Service: November 14, 2024
Patient seen and examined at bedside, sitting in a chair eating breakfast, denies any chest pain or shortness of breath, no abdominal pain, no nausea, no vomiting, no diarrhea or constipation.
Objective Data
-
Labs:
Laboratory Results
11/13/24 11/14/24 11/14/24
22:38 06:51 13:25
WBC 10.3
Hgb 10.2 L
Hct 31.0 L
Plt Count 224
APTT 133.2 H 98.0 H Pending
Sodium 134 L
Potassium 4.8
Chloride 103
Carbon Dioxide 15 L
BUN 35 H
Creatinine 1.4 H
Glucose 314 H
Calcium 9.4
Vital Signs:
Vital Signs
Temp Pulse Resp BP Pulse Ox
97.8 F 64 18 125/47 100
11/14/24 07:00 11/14/24 08:06 11/14/24 07:00 11/14/24 08:06 11/14/24 08:25
I&O
11/13/24 11/14/24 11/15/24
06:59 06:59 06:59
Intake Total 830 / 830 1240 / 1240 320 / 320
Balance 830 / 830 1240 / 1240 320 / 320
Physical Exam
-
General: Well Developed, Well Nourished, No Apparent Distress and Conversant; Negative Fever, Chills or Sweats
HEENT: Normocephalic and Atraumatic
Respiratory: Clear to Auscultation and Non Labored Respirations; Negative Wheezes or Rhonchi
Cardiac: Regular Rhythm and S1/S2
Breast: Deferred by me
GI: Soft, Nontender, Nondistended and Normal Bowel Sounds
Genito-urinary: No Costovertebral Tender
Musculoskeletal: No Clubbing, No Cyanosis, Edema, Right Lower Extrem (+2), Edema, Left Lower Extrem (trace) and Other (Right foot dressing.)
Skin: Warm, Dry and Other
Neuro: Awake, Alert and Nonfocal/Grossly Intact
Psych: Calm
Data Reviewed
-
Diagnostic Radiology: Image personally visualized and interpreted and Report Reviewed by me
CT Scan: Image personally visualized and interpreted and Report Reviewed by me
Ultrasound: Image personally visualized and interpreted and Report Reviewed by me
MRI: Image personally visualized and interpreted and Report Reviewed by me
Medical Tests (Nuc Med, Echo etc): Image personally visualized and interpreted and Report Reviewed by me
Labs: Labs Reviewed by me
Old Records: Reviewed
[2024-11-14 11:08] VITALS: BP 123/48
[2024-11-14 11:46] LABS: Glucose - Point of Care 244 mg/dl (70-99)
[2024-11-14] MEDS: NOVOLOG FLEXPEN-LOW RESISTANCE 2 UNITS SC (12:13)
[2024-11-14 14:02] LABS: APTT 56.2 Sec (23.4-35.0)
[2024-11-14 15:23] VITALS: BP 122/48
--- NOTE | 2024-11-14 16:55 | W.PN.SURGUPD ---
Surgical Update
Surgical Update
68 yo F s/p R open 3rd toe amputation
-Patient seen and evaluated at bedside, dressing changed wound inspected.
-R 3rd toe amputation site packed open with betadine DSD, please reinforce as needed
-Dressings to be changed daily started 11/15 as follows: Please apply betadine packed 4x4 gauze pads to amputation site, lightly wrap with webril and kerlix
-Continues antibiotics per ID recs, 1x OR culture and 1x OR pathology specimen obtained
-Await vascular surgery intervention on 11/17
-Minimal heel WB to RLE acceptable
[2024-11-14 17:04] LABS: Glucose - Point of Care 170 mg/dl (70-99)
[2024-11-14] MEDS: NOVOLOG FLEXPEN-LOW RESISTANCE 1 UNITS SC (17:32)
[2024-11-14] MEDS: LIPITOR 80 MG PO (17:33)
[2024-11-14] MEDS: LANTUS 0.06 UNITS SC (17:39)
[2024-11-14] MEDS: ZESTRIL 40 MG PO (20:46)
[2024-11-14] MEDS: ULTRAM 50 MG PO (20:46)
[2024-11-14] MEDS: TYLENOL 650 MG PO (20:46)
[2024-11-14 21:08] LABS: Glucose - Point of Care 93 mg/dl (70-99)
[2024-11-14 21:13] LABS: APTT 95.2 Sec (23.4-35.0)
[2024-11-14 23:00] VITALS: BP 132/54
[2024-11-15] MEDS: ZOSYN 50 IV ×5 (00:22→23:50)
[2024-11-15] MEDS: ULTRAM 50 MG PO ×2 (03:05→09:55)
[2024-11-15 04:15] LABS: APTT 161.9 Sec (23.4-35.0)
[2024-11-15 04:23] LABS: Blood Urea Nitrogen 39 mg/dl (7-17); Calcium 9.7 mg/dl (8.4-10.2); Carbon Dioxide 23 mmol/L (22-30); Chloride 106 mmol/L (98-107); Estimated Creatinine Clearance 34 ml/min; Glucose 191 mg/dl (70-99); Potassium 4.4 mmol/L (3.5-5.1); Sodium 139 mmol/L (135-145); eGFR 35.35
[2024-11-15 07:00] VITALS: BP 128/56
[2024-11-15 07:10] LABS: Glucose - Point of Care 284 mg/dl (70-99)
[2024-11-15 08:00] VITALS: BP 128/56
[2024-11-15] MEDS: NOVOLOG FLEXPEN 10 UNITS SC ×3 (09:30→18:02)
[2024-11-15] MEDS: NOVOLOG FLEXPEN-LOW RESISTANCE 3 UNITS SC (09:31)
[2024-11-15] MEDS: LANTUS 0.07 UNITS SC (09:32)
[2024-11-15] MEDS: ORETIC 12.5 MG PO (09:37)
[2024-11-15] MEDS: NORVASC 10 MG PO (09:38)
[2024-11-15] MEDS: LOW STRENGTH ASPIRIN 81 MG PO (09:38)
[2024-11-15] MEDS: HEPARIN 25000 UNITS/250 ML IV (09:44)
[2024-11-15] MEDS: SENOKOT-S 1 TABLET PO ×2 (09:54→20:59)
--- NOTE | 2024-11-15 11:22 | W.PN.HOSP.TC ---
Today's Communication/Plan
-
Angiogram on Sunday
Assessment / Plan
Assessment / Plan
Impression:
Patient is a pleasant 68 years old with history of diabetes mellitus, hypertension, hyperlipidemia, CVA, peripheral vascular disease who came to the ER with worsening right third toe dark discoloration and gangrene.
Patient was started on Augmentin as outpatient with no relief.
Visiting nurse noticed increased purulent drainage and color advised to come to the ER.
Started on vancomycin and Zosyn in the ER, admitted with podiatry/vascular surgery Cx.
s/p R 3rd toe amputation site
ID consulted
Vascular surgery consulted, for angiogram on Sunday.
Assessment/plan:
Worsening gangrene of right 3rd toe/ Acute osteomyelitis.
S/P R 3rd toe amputation.
Post podiatry and vascular surgery consulted in the ER.
X-ray shows:
There are new erosive changes of the proximal phalanx of the third toe which likely represent osteomyelitis.
Ultrasound Doppler shows:
1. Limflow stent is patent. Mild elevation of peak systolic velocity within the proximal stent suggestive of mild stenosis.
2. Right toe brachial index 0.16 (not measurable on prior study dated 10/24/2024
Started on IV vancomycin/Zosyn,
PT/OT,
Appreciate both podiatry and vascular surgery input.
Infectious disease consulted.
5/
Continue antibiotics, pending OR culture data
Peripheral arterial disease-
Vascular surgery consult
Eliquis on hold, heparin drip continued
5/
Possible angiogram on Sunday
Diabetes, type 1 with neuropathy
A1C 7.3 on October 01, 2024
Continue Lantus/ Novolog
breakfast Lunch Dinner
Lantus 7 6
NovoLog 10 10 10
Insulin sliding scale
Anemia likely of chronic disease-
Hemoglobin stable
CKD 3B.
Creatinine stabke
Essential Hypertension
Continue home med
Hyperlipidemia
Continue home atorvastatin 80mg qPM, ASA 81mg qD.
History of CVA (2018)
Continue aspirin/atorvastatin
Code status: Full
DVT proph-- Heparin drip (Eliquis on hold)
Diet: Diabetic.
Total time spent on today's encounter was 65 minutes which included time spent in counseling the patient/family regarding diagnosis and treatment plan as listed above, goals of care, and symptom management. Case was discussed with nursing staff,
specialists, and care coordinators/case management. All labs and imaging personally reviewed by me. Remainder the time spent in detailed review of previous records, lab data, imaging, and other medical provider documentation.
Anticipated Discharge: > 48 hours
Subjective/Interval History
-
Date of Service: November 15, 2024
Patient seen and examined at bedside, denies any chest pain or shortness of breath, no abdominal pain, no nausea, no vomiting, no diarrhea or constipation.
Vascular plan for angiogram on sunday.
Objective Data
-
Labs:
Laboratory Results
11/15/24 11/15/24
03:09 11:30
APTT 161.9 H* Pending
Sodium 139
Potassium 4.4
Chloride 106
Carbon Dioxide 23
BUN 39 H
Creatinine 1.6 H
Glucose 191 H
Calcium 9.7
Vital Signs:
Vital Signs
Temp Pulse Resp BP Pulse Ox
97.7 F 59 16 128/56 96
11/15/24 07:00 11/15/24 07:00 11/15/24 07:00 11/15/24 07:00 11/15/24 07:00
I&O
11/14/24 11/15/24 11/16/24
06:59 06:59 06:59
Intake Total 1240 / 1240 1400 / 1400
Balance 1240 / 1240 1400 / 1400
Physical Exam
-
General: Well Developed, Well Nourished, No Apparent Distress and Conversant; Negative Fever, Chills or Sweats
HEENT: Normocephalic and Atraumatic
Respiratory: Clear to Auscultation and Non Labored Respirations; Negative Wheezes or Rhonchi
Cardiac: Regular Rhythm and S1/S2
Breast: Deferred by me
GI: Soft, Nontender, Nondistended and Normal Bowel Sounds
Genito-urinary: No Costovertebral Tender
Musculoskeletal: No Clubbing, No Cyanosis, Edema, Right Lower Extrem (+2), Edema, Left Lower Extrem (trace) and Other (Right foot dressing.)
Skin: Warm, Dry and Other
Neuro: Awake, Alert and Nonfocal/Grossly Intact
Psych: Calm
Data Reviewed
-
Diagnostic Radiology: Image personally visualized and interpreted and Report Reviewed by me
CT Scan: Image personally visualized and interpreted and Report Reviewed by me
Ultrasound: Image personally visualized and interpreted and Report Reviewed by me
MRI: Image personally visualized and interpreted and Report Reviewed by me
Medical Tests (Nuc Med, Echo etc): Image personally visualized and interpreted and Report Reviewed by me
Labs: Labs Reviewed by me
Old Records: Reviewed
[2024-11-15 11:53] LABS: APTT 99.7 Sec (23.4-35.0)
[2024-11-15 12:33] LABS: Glucose - Point of Care 245 mg/dl (70-99)
[2024-11-15] MEDS: FLUSH (NSS) 2 FLUSH IV ×2 (12:41→18:03)
[2024-11-15] MEDS: NOVOLOG FLEXPEN-LOW RESISTANCE 2 UNITS SC (12:45)
--- NOTE | 2024-11-15 13:29 | W.PN.ID1 ---
Date of Service
Date of Service: November 15, 2024
Today's Communication
Continue antibiotics.
Assessment / Plan
Right toe osteomyelitis / gangrene; s/p amputation
SSTI right lower extremity
DM type I
HTN
CVA
PAD
HLD
Recommendations:
Continue with Zosyn.
Intraoperative cultures with GNR's; will await further data.
Local care to the wound bed.
Monitor white count and temperature curve.
Await further culture data to guide further antimicrobial selection and potential de-escalation.
Await pathology.
Chief Complaint
-: Other (Osteomyelitis / gangrene right third toe)
Subjective / Review of Systems
Review of Systems: No Fever and No Chills
Vital Signs / Physical Exam
Vital Signs
Vital Signs
Temp Pulse Resp BP Pulse Ox
97.7 F 59 16 128/56 96
11/15/24 07:00 11/15/24 07:00 11/15/24 07:00 11/15/24 07:00 11/15/24 07:00
Physical Exam
Constitutional: No Acute Distress, Comfortable and Non-toxic
Eyes: Sclera Anicteric
Pulmonary: Non Labored
Gastrointestinal: Soft and Non Tender
Extremities: Edema (2+ RLE)
Wound: Other (right foot dressed. Mild bloody strikethrough. mild erythema up leg.)
Neurological: Awake and Alert
Psychological: Calm
Objective Data
Lab Data
Lab Results
11/14/24 06:51
11/15/24 03:09
ESR 22 mm/hour (0-20) H 11/12/24 11:30
APTT 99.7 Sec (23.4-35.0) H 11/15/24 11:28
Estimated Creat Clear 34 ml/min 11/15/24 03:09
Total Bilirubin 1.5 mg/dl (0.2-1.3) H 11/12/24 11:30
AST 36 U/L (14-36) 11/12/24 11:30
ALT 15 U/L (0-35) 11/12/24 11:30
Alkaline Phosphatase 87 U/L (38-126) 11/12/24 11:30
C-Reactive Protein 26.70 mg/L (0.0-10.00) H 11/12/24 11:30
Most recent labs reviewed.
Micro Results:
11/13/24 07:21 Wound Culture - Preliminary
Toe Gram negative bacilli
Gram Stain - Preliminary
11/13/24 07:21 Anaerobic Culture - Preliminary
Toe Culture pending. Anaerobic cultures are examined after 3
days incubation. Additional information to follow.
Imaging:
11/12/24 Plain film right foot: New erosive changes of the proximal phalanx of the third toe which are likely represents osteomyelitis noted. Please see full dictation for additional detail. Film personally viewed.
[2024-11-15 15:00] VITALS: BP 110/44
[2024-11-15 16:50] LABS: Glucose - Point of Care 108 mg/dl (70-99)
[2024-11-15] MEDS: NOVOLOG FLEXPEN-LOW RESISTANCE SC (18:03)
[2024-11-15] MEDS: LIPITOR 80 MG PO (18:03)
[2024-11-15 18:13] LABS: APTT 101.4 Sec (23.4-35.0)
[2024-11-15] MEDS: LANTUS 0.06 UNITS SC (18:22)
[2024-11-15] MEDS: ZESTRIL 40 MG PO (20:59)
[2024-11-15 21:02] LABS: Glucose - Point of Care 161 mg/dl (70-99)
[2024-11-15 23:50] VITALS: BP 125/51
[2024-11-16] MEDS: ZOSYN 50 IV ×4 (05:52→23:30)
[2024-11-16 06:28] LABS: APTT 94.2 Sec (23.4-35.0)
[2024-11-16 06:42] LABS: Hematocrit 28.7 % (37.0-47.0); Hemoglobin 9.5 g/dL (12.0-16.0); Mean Corp Hgb Conc. 33.1 g/dL (33.0-37.0); Mean Corpuscular Hgb 28.6 pg (27.0-31.0); Mean Corpuscular Volume 86.4 fL (81.0-99.0); Mean Platelet Volume 10.5 fL (7.4-10.4); Platelet Count 220 10^3/uL (130-400); Red Blood Cell Count 3.32 10^6/uL (4.20-5.40); Red Cell Dist. Width 12.8 % (11.5-14.5); White Blood Cell Count 6.5 10^3/uL (4.8-10.8)
[2024-11-16 07:00] VITALS: BP 147/61
[2024-11-16 07:08] LABS: Glucose - Point of Care 280 mg/dl (70-99)
[2024-11-16] MEDS: NORVASC 10 MG PO (07:57)
[2024-11-16] MEDS: LOW STRENGTH ASPIRIN 81 MG PO (07:57)
[2024-11-16] MEDS: ORETIC 12.5 MG PO (07:59)
[2024-11-16] MEDS: LANTUS 0.07 UNITS SC (08:01)
[2024-11-16] MEDS: NOVOLOG FLEXPEN 10 UNITS SC ×3 (08:01→17:40)
[2024-11-16] MEDS: NOVOLOG FLEXPEN-LOW RESISTANCE 3 UNITS SC (08:02)
[2024-11-16] MEDS: MIRALAX 17 GRAMS PO (08:12)
[2024-11-16] MEDS: DRISDOL (VITAMIN D2) 50000 UNITS PO (10:33)
--- NOTE | 2024-11-16 11:40 | W.PN.HOSP.TC ---
Today's Communication/Plan
-
Angiogram on Sunday
Assessment / Plan
Assessment / Plan
Impression:
Patient is a pleasant 68 years old with history of diabetes mellitus, hypertension, hyperlipidemia, CVA, peripheral vascular disease who came to the ER with worsening right third toe dark discoloration and gangrene.
Patient was started on Augmentin as outpatient with no relief.
Visiting nurse noticed increased purulent drainage and color advised to come to the ER.
Started on vancomycin and Zosyn in the ER, admitted with podiatry/vascular surgery Cx.
s/p R 3rd toe amputation site
ID consulted
Vascular surgery consulted, for angiogram on Sunday.
Assessment/plan:
Worsening gangrene of right 3rd toe/ Acute osteomyelitis.
S/P R 3rd toe amputation.
Post podiatry and vascular surgery consulted in the ER.
X-ray shows:
There are new erosive changes of the proximal phalanx of the third toe which likely represent osteomyelitis.
Ultrasound Doppler shows:
1. Limflow stent is patent. Mild elevation of peak systolic velocity within the proximal stent suggestive of mild stenosis.
2. Right toe brachial index 0.16 (not measurable on prior study dated 10/24/2024
Started on IV vancomycin/Zosyn,
PT/OT,
Appreciate both podiatry and vascular surgery input.
Infectious disease consulted.
11/14
Continue antibiotics, pending OR culture data
11/16
Continue current antibiotic
Culture shows:
Wound/abscess/other Cult Preliminary 11/16/24-900
Few Klebsiella oxytoca sensitive to Zosyn
Few Stenotrophomonas maltophilia sensitive to bactrim
Few Coagulase neg. staphylococcus
Few Diptheroids
Follow with infectious disease recommendations
Peripheral arterial disease-
Vascular surgery consult
Eliquis on hold, heparin drip continued
11/14
Possible angiogram on Sunday
Diabetes, type 1 with neuropathy
A1C 7.3 on October 01, 2024
Continue Lantus/ Novolog
breakfast Lunch Dinner
Lantus 7 6
NovoLog 10 10 10
Insulin sliding scale
Anemia likely of chronic disease-
Hemoglobin stable
CKD 3B.
Creatinine stabke
Essential Hypertension
Continue home med
Hyperlipidemia
Continue home atorvastatin 80mg qPM, ASA 81mg qD.
History of CVA (2018)
Continue aspirin/atorvastatin
Code status: Full
DVT proph-- Heparin drip (Eliquis on hold)
Diet: Diabetic.
Total time spent on today's encounter was 65 minutes which included time spent in counseling the patient/family regarding diagnosis and treatment plan as listed above, goals of care, and symptom management. Case was discussed with nursing staff,
specialists, and care coordinators/case management. All labs and imaging personally reviewed by me. Remainder the time spent in detailed review of previous records, lab data, imaging, and other medical provider documentation.
Anticipated Discharge: 24 - 48 hours
Subjective/Interval History
-
Date of Service: November 16, 2024
Patient seen and examined at bedside, denies any chest pain or shortness of breath, no abdominal pain, no nausea, no vomiting, no diarrhea or constipation.
Was complaining of insomnia, added melatonin.
Plan for angiogram tomorrow
Objective Data
-
Labs:
Laboratory Results
11/16/24
06:02
WBC 6.5
Hgb 9.5 L
Hct 28.7 L
Plt Count 220
APTT 94.2 H
Vital Signs:
Vital Signs
Temp Pulse Resp BP Pulse Ox
97.9 F 68 16 147/61 98
11/16/24 07:00 11/16/24 07:57 11/16/24 07:00 11/16/24 07:57 11/16/24 07:50
I&O
11/15/24 11/16/24 11/17/24
06:59 06:59 06:59
Intake Total 1400 / 1400 1060 / 1060 480 / 480
Balance 1400 / 1400 1060 / 1060 480 / 480
Physical Exam
-
General: Well Developed, Well Nourished, No Apparent Distress and Conversant; Negative Fever, Chills or Sweats
HEENT: Normocephalic and Atraumatic
Respiratory: Clear to Auscultation and Non Labored Respirations; Negative Wheezes or Rhonchi
Cardiac: Regular Rhythm and S1/S2
Breast: Deferred by me
GI: Soft, Nontender, Nondistended and Normal Bowel Sounds
Genito-urinary: No Costovertebral Tender
Musculoskeletal: No Clubbing, No Cyanosis, Edema, Right Lower Extrem (+2), Edema, Left Lower Extrem (trace) and Other (Right foot dressing.)
Skin: Warm, Dry and Other
Neuro: Awake, Alert and Nonfocal/Grossly Intact
Psych: Calm
Data Reviewed
-
Diagnostic Radiology: Image personally visualized and interpreted and Report Reviewed by me
CT Scan: Image personally visualized and interpreted and Report Reviewed by me
Ultrasound: Image personally visualized and interpreted and Report Reviewed by me
MRI: Image personally visualized and interpreted and Report Reviewed by me
Medical Tests (Nuc Med, Echo etc): Image personally visualized and interpreted and Report Reviewed by me
Labs: Labs Reviewed by me
Old Records: Reviewed
[2024-11-16 12:30] LABS: Glucose - Point of Care 220 mg/dl (70-99)
[2024-11-16] MEDS: NOVOLOG FLEXPEN-LOW RESISTANCE 2 UNITS SC (12:57)
--- NOTE | 2024-11-16 14:15 | CHAP ---
Visited Ms. Ferrer at 9:10. She is accepting of her situation and looks forward to getting past it. Has supportive family. Emotional and spiritual support provided.
[2024-11-16 15:50] VITALS: BP 133/94
[2024-11-16 17:18] LABS: Glucose - Point of Care 157 mg/dl (70-99)
[2024-11-16] MEDS: LIPITOR 80 MG PO (17:34)
[2024-11-16] MEDS: HEPARIN 25000 UNITS/250 ML IV (17:34)
[2024-11-16] MEDS: NOVOLOG FLEXPEN-LOW RESISTANCE 1 UNITS SC (17:41)
[2024-11-16] MEDS: LANTUS 0.06 UNITS SC (17:42)
[2024-11-16] MEDS: ZESTRIL 40 MG PO (21:16)
[2024-11-16 21:19] LABS: Glucose - Point of Care 143 mg/dl (70-99)
[2024-11-16] MEDS: MELATONIN 5 MG PO (21:20)
[2024-11-16 23:50] VITALS: BP 130/58
[2024-11-17] VITALS (12 sets, daily range): BP systolic 16–152; BP diastolic 51–79
[2024-11-17] MEDS: ZOSYN 50 IV ×2 (05:19→12:40)
[2024-11-17 06:10] LABS: Glucose - Point of Care 353 mg/dl (70-99)
[2024-11-17] MEDS: NOVOLOG FLEXPEN-LOW RESISTANCE 5 UNITS SC (06:15)
[2024-11-17 07:08] LABS: Blood Urea Nitrogen 22 mg/dl (7-17); Calcium 9.6 mg/dl (8.4-10.2); Carbon Dioxide 27 mmol/L (22-30); Chloride 106 mmol/L (98-107); Estimated Creatinine Clearance 46 ml/min; Glucose 323 mg/dl (70-99); Potassium 4.7 mmol/L (3.5-5.1); Sodium 139 mmol/L (135-145); eGFR 49.92
[2024-11-17 07:43] LABS: APTT 80.3 Sec (23.4-35.0)
[2024-11-17] MEDS: NOVOLOG FLEXPEN SC ×3 (07:57→17:09)
[2024-11-17] MEDS: LOW STRENGTH ASPIRIN 81 MG PO (08:04)
[2024-11-17] MEDS: ORETIC 12.5 MG PO (08:04)
[2024-11-17] MEDS: NORVASC 10 MG PO (08:04)
--- NOTE | 2024-11-17 08:14 | W.PN.HOSP.TC ---
Today's Communication/Plan
-
IV antibiotics. Plan for angiogram
Assessment / Plan
Assessment / Plan
Physical exam:
General: Acutely ill
HEENT: Normocephalic, Atraumatic and Moist Mucous Membranes
Respiratory: Clear to Auscultation; Negative Wheezes, Rales or Rhonchi
Cardiac: Regular Rhythm and S1/S2
GI: Soft, Nontender and Nondistended
Musculoskeletal: Right foot with dressing and postop findings of wound. Edema present. Erythema improving. No Clubbing, No Cyanosis.
Neuro: Awake, Alert and Oriented, no neurological deficits
Psych: Anxious
A/P:
Cellulitis right foot and third toe osteomyelitis with gangrene:
Status post third toe amputation
Continue IV Zosyn
Cultures from 11/13 growing Klebsiella oxytoca and stenotrophomonas maltophilia; additional cultures/path pending
ID follow
Peripheral vascular disease:
Eliquis on hold and on heparin drip
Plan for angiogram today
Vascular surgery following
Diabetes mellitus type 1:
N.p.o. since last night
Continue insulin sliding scale
Holding her regular insulin doses by patient request
Hypertension:
On amlodipine, HCTZ, and lisinopril
Hyperlipidemia:
On atorvastatin 80 mg p.o. every evening
History of CVA:
No residual deficits
On aspirin and statins
CKD stage IIIb:
Avoid nephrotoxic
Monitor renal for
DVT prophylaxis:
Currently on heparin drip
CODE STATUS:
Full code
Total time spent on today's encounter was 52 minutes which included time spent in counseling the patient/family regarding diagnosis and treatment plan as listed above, goals of care, and symptom management. Case was discussed with nursing staff,
specialists, and care coordinators/case management. All labs and imaging personally reviewed by me. Remainder the time spent in detailed review of previous records, lab data, imaging, and other medical provider documentation.
Anticipated Discharge: 24 - 48 hours
Subjective/Interval History
-
Date of Service: November 17, 2024
Patient denies any leg pain, nausea or vomiting or diarrhea. Afebrile
Objective Data
-
Labs:
Laboratory Results
11/17/24 11/17/24
05:35 07:14
APTT 80.3 H
Sodium 139
Potassium 4.7
Chloride 106
Carbon Dioxide 27
BUN 22 H
Creatinine 1.2 H
Glucose 323 H
Calcium 9.6
Vital Signs:
Vital Signs
Temp Pulse Resp BP Pulse Ox
98.1 F 67 18 152/55 98
11/17/24 07:58 11/17/24 07:58 11/17/24 07:58 11/17/24 07:58 11/17/24 07:58
I&O
11/16/24 11/17/24 11/18/24
06:59 06:59 06:59
Intake Total 1060 / 1060 1112 / 1112
Balance 1060 / 1060 1112 / 1112
[2024-11-17] MEDS: LANTUS SC (08:28)
--- NOTE | 2024-11-17 10:33 | CM ---
Sp right toe 3 rd amputation .
On IV antibiotics .
For Angiogram today.
Pt requested [facility] . Leti Michael liaison aware of referral.
PLAN Home with [facility]
--- NOTE | 2024-11-17 10:39 | VNURNOTE ---
Chart reviewed. Patient is current with [facility]. Resumption referral placed in [facility]. Will continue to follow for DC plans.
[2024-11-17 12:36] LABS: Glucose - Point of Care 421 mg/dl (70-99)
[2024-11-17 13:21] LABS: Glucose 407 mg/dl (70-99)
[2024-11-17] MEDS: NOVOLOG FLEXPEN-LOW RESISTANCE 6 UNITS SC (13:28)
--- NOTE | 2024-11-17 13:46 | W.PN.ID1 ---
Date of Service
Date of Service: November 17, 2024
Today's Communication
Transition to oral levofloxacin. Await arteriogram.
Assessment / Plan
Right toe osteomyelitis / gangrene; s/p amputation
SSTI right lower extremity
DM type I
HTN
CVA
PAD
HLD
Recommendations:
OR cultures with Klebsiella and stenotrophomonas.
Narrow antibiotics to levofloxacin 750 mg q48h
Local care to the wound bed.
Monitor white count and temperature curve.
Await pathology.
For arteriogram later today.
����������������������������������������������������������
Chief Complaint
-: Other (Osteomyelitis / gangrene right third toe)
Subjective / Review of Systems
Review of Systems: No Fever and No Chills
Vital Signs / Physical Exam
Vital Signs
Vital Signs
Temp Pulse Resp BP Pulse Ox
98.1 F 67 18 152/55 98
11/17/24 07:58 11/17/24 07:58 11/17/24 07:58 11/17/24 07:58 11/17/24 08:00
Physical Exam
Constitutional: No Acute Distress, Comfortable and Non-toxic
Eyes: Sclera Anicteric
Pulmonary: Non Labored
Gastrointestinal: Soft and Non Tender
Extremities: Edema (2+ RLE)
Wound: Other (right foot dressed. )
Neurological: Awake and Alert
Psychological: Calm
Objective Data
Lab Data
Lab Results
11/16/24 06:02
11/17/24 12:49
ESR 22 mm/hour (0-20) H 11/12/24 11:30
APTT 80.3 Sec (23.4-35.0) H 11/17/24 07:14
Estimated Creat Clear 46 ml/min 11/17/24 05:35
Total Bilirubin 1.5 mg/dl (0.2-1.3) H 11/12/24 11:30
AST 36 U/L (14-36) 11/12/24 11:30
ALT 15 U/L (0-35) 11/12/24 11:30
Alkaline Phosphatase 87 U/L (38-126) 11/12/24 11:30
C-Reactive Protein 26.70 mg/L (0.0-10.00) H 11/12/24 11:30
Most recent labs reviewed.
Micro Results:
11/13/24 07:21 Anaerobic Culture - Preliminary
Toe Culture pending. Anaerobic cultures are examined after 3
days incubation. Additional information to follow.
11/13/24 07:21 Wound Culture - Preliminary
Toe Klebsiella oxytoca
Stenotrophomonas maltophilia
Gram Stain - Preliminary
Imaging:
11/12/24 Plain film right foot: New erosive changes of the proximal phalanx of the third toe which are likely represents osteomyelitis noted. Please see full dictation for additional detail. Film personally viewed.
[2024-11-17] MEDS: LEVAQUIN 750 MG PO (15:11)
[2024-11-17 16:00] LABS: Glucose - Point of Care 281 mg/dl (70-99)
[2024-11-17] MEDS: NOVOLOG FLEXPEN-LOW RESISTANCE 3 UNITS SC (17:10)
[2024-11-17] MEDS: LIPITOR 80 MG PO (17:17)
[2024-11-17] MEDS: HEPARIN 25000 UNITS/250 ML IV (17:21)
[2024-11-17 19:13] LABS: Glucose - Point of Care 280 mg/dl (70-99)
--- NOTE | 2024-11-17 19:51 | OR.RPT ---
Operative Report
Operative Report
Date of Operation: 11/17/2024
Pre Op Diagnosis:
1. [place] artery atherosclerosis with gangrene and associated infection, right foot
2. Diabetes with lower extremity atherosclerotic disease
Post Op Diagnosis:
1. [place] artery atherosclerosis with gangrene and associated infection, right foot
2. Diabetes with lower extremity atherosclerotic disease
Procedure:
1.) Diagnostic right lower extremity arteriogram
2.) Ultrasound-guided percutaneous access to the right common femoral artery, antegrade
Surgeon: Edgar Garcia III, MD
Ear Muff Assembler: Jerome David MD PGY1
Anesthesia: Sedation with local
Complications: None
Estimated Blood Loss: Less than 10 cc
History and Indications for Procedure: 68-year-old female with recent LimFlow/TADV procedure. She was readmitted with gangrene and associated infection involving her right third toe. She was taken to the OR to interrogate her LimFlow/TADV circuit.
Procedure in Detail: Ledy Ferrer was correctly identified and placed supine on the operating table. After adequate induction of anesthesia the bilateral groins were prepped and draped in the usual sterile fashion. A timeout was performed with
the nursing and anesthesia staff confirming the patient's identity as well as the nature and laterality of the procedure.
The right common femoral artery was identified under ultrasound guidance. The artery was patent. The superior and inferior aspects of the femoral head were identified with radiographic guidance and marked at the skin level. The proposed puncture
site was infiltrated with local anesthesia. Under ultrasound guidance we accessed the right common femoral artery at the superficial femoral artery origin in an antegrade direction with a micropuncture needle and upsized to a 5 Fr sheath over a
Bentson wire. A diagnostic right lower extremity arteriogram was then performed which demonstrated the following:
RIGHT LOWER EXTREMITY:
Patent superficial femoral artery and popliteal artery with no stenosis identified
Widely patent anterior tibial artery proximally
Widely patent LimFlow/TADV stents with no stenosis identified, brisk flow
Brisk flow identified through the LimFlow/TADV stents and into the foot
Brisk flow through the venous outflow in the foot
No venous outflow stenosis identified in the right foot
Satisfied with this diagnostic result we concluded the procedure. The sheath was pulled and direct manual pressure was held over the puncture site until hemostasis was achieved. Sterile dressing was applied.
The patient tolerated the procedure well and was taken to the recovery area in stable condition.
Attestation: I was present and responsible for the entire procedure.
Signed:
Edgar Garcia III, MD
Vascular Surgery
[facility]
[2024-11-17 20:01] LABS: Glucose - Point of Care 273 mg/dl (70-99)
--- NOTE | 2024-11-17 20:40 | PTCARENOTE ---
[facility] report given by Jes DOMINGO. Heparin GTT on hold during the Angiogram. Will resume Heparin GTT at previous rate of 800 units hour 11/18/[address] Garcia (verbal order). Patient will resume previous diet [address] Garcia (verbal
order).
--- NOTE | 2024-11-17 21:00 | PTCARENOTE ---
Received pt from [facility] AAO*4, VSS no distress noted. R groin site is intact with 4*4 and tegaderm intact. Palpable RLE DP, good cap refill noted. Patient denies any numbness or tingling to RLE. Pt instructed when the head of the bed can be elevated
along with ambulation time.
[2024-11-17] MEDS: LANTUS 0.06 UNITS SC (21:44)
[2024-11-17] MEDS: NSS 1000 IV (21:45)
[2024-11-17] MEDS: ZESTRIL 40 MG PO (21:45)
[2024-11-17] MEDS: ULTRAM 50 MG PO (22:01)
[2024-11-17 22:05] LABS: Glucose - Point of Care 304 mg/dl (70-99)
[2024-11-17] MEDS: NOVOLOG FLEXPEN-LOW RESISTANCE 4 UNITS SC (22:06)
[2024-11-18 03:06] VITALS: BP 137/52
[2024-11-18 06:00] LABS: Glucose - Point of Care 298 mg/dl (70-99)
[2024-11-18] MEDS: NOVOLOG FLEXPEN-LOW RESISTANCE 3 UNITS SC (06:03)
[2024-11-18 07:19] LABS: Glucose - Point of Care 301 mg/dl (70-99)
[2024-11-18] MEDS: ORETIC 12.5 MG PO (07:22)
[2024-11-18] MEDS: NORVASC 10 MG PO (07:22)
[2024-11-18] MEDS: LANTUS 0.07 UNITS SC (07:22)
[2024-11-18] MEDS: LOW STRENGTH ASPIRIN 81 MG PO (07:22)
[2024-11-18] MEDS: NOVOLOG FLEXPEN 10 UNITS SC ×2 (07:22→12:08)
--- NOTE | 2024-11-18 07:53 | W.PN.HOSP.TC ---
Today's Communication/Plan
-
Discharge planning
Assessment / Plan
Assessment / Plan
Physical exam:
General: No acute distress
HEENT: Normocephalic, Atraumatic and Moist Mucous Membranes
Respiratory: Clear to Auscultation; Negative Wheezes, Rales or Rhonchi
Cardiac: Regular Rhythm and S1/S2
GI: Soft, Nontender and Nondistended
Musculoskeletal: Right foot undressing by RN and reviewed postop findings of wound. Edema decreasing. Erythema improving. No Clubbing, No Cyanosis.
Neuro: Awake, Alert and Oriented, no neurological deficits
Psych: Anxious
A/P:
Cellulitis right foot and third toe osteomyelitis with gangrene:
Status post third toe amputation
Changed IV Zosyn to oral levofloxacin by ID--> discussed with ID today about length of antibiotics upon discharge; ID recommends continue levofloxacin 750 mg every other day for 2 weeks and then suppression of levofloxacin 500 mg every other day
until surgery (I will give supply for 2 weeks and after that she will receive from either PCP/ID/podiatry). Podiatry planning likely TMA as outpatient.
Cultures from 11/13 growing Klebsiella oxytoca and stenotrophomonas maltophilia; additional cultures/path pending
ID following
Peripheral vascular disease:
Switch heparin drip to Eliquis today
Status post angiogram yesterday 11/17 and vessels were patent
Vascular surgery following
Diabetes mellitus type 1:
Continue insulin sliding scale
Back to long-acting and short acting insulin
Hypertension:
On amlodipine, HCTZ, and lisinopril
Hyperlipidemia:
On atorvastatin 80 mg p.o. every evening
History of CVA:
No residual deficits
On aspirin and statins
CKD stage IIIb:
Avoid nephrotoxic
Monitor renal for
DVT prophylaxis:
Eliquis
CODE STATUS:
Full code
Anticipated Discharge: Today
Subjective/Interval History
-
Date of Service: November 18, 2024
Patient denies any nausea or vomiting or diarrhea. Feels well overall. Afebrile
Objective Data
-
Labs:
Laboratory Results
11/18/24
07:36
WBC Pending
Hgb Pending
Hct Pending
Plt Count Pending
APTT Pending
Sodium Pending
Potassium Pending
Chloride Pending
Carbon Dioxide Pending
BUN Pending
Creatinine Pending
Glucose Pending
Calcium Pending
Vital Signs:
Vital Signs
Temp Pulse Resp BP Pulse Ox
97.8 F 80 16 137/52 98
11/18/24 03:06 11/18/24 03:06 11/18/24 03:06 11/18/24 03:06 11/18/24 03:06
I&O
11/17/24 11/18/24 11/19/24
06:59 06:59 06:59
Intake Total 1112 / 1112 848 / 848
Balance 1112 / 1112 848 / 848
[2024-11-18 07:55] LABS: Hematocrit 28.3 % (37.0-47.0); Hemoglobin 9.4 g/dL (12.0-16.0); Mean Corp Hgb Conc. 33.2 g/dL (33.0-37.0); Mean Corpuscular Hgb 28.7 pg (27.0-31.0); Mean Corpuscular Volume 86.5 fL (81.0-99.0); Mean Platelet Volume 10.2 fL (7.4-10.4); Platelet Count 224 10^3/uL (130-400); Red Blood Cell Count 3.27 10^6/uL (4.20-5.40); Red Cell Dist. Width 12.6 % (11.5-14.5); White Blood Cell Count 7.1 10^3/uL (4.8-10.8)
[2024-11-18 07:57] VITALS: BP 135/53
[2024-11-18 08:15] LABS: Blood Urea Nitrogen 20 mg/dl (7-17); Calcium 9.2 mg/dl (8.4-10.2); Carbon Dioxide 21 mmol/L (22-30); Chloride 106 mmol/L (98-107); Estimated Creatinine Clearance 50 ml/min; Glucose 299 mg/dl (70-99); Potassium 4.7 mmol/L (3.5-5.1); Sodium 138 mmol/L (135-145); eGFR 55.42
[2024-11-18] MEDS: ELIQUIS 5 MG PO (08:20)
--- NOTE | 2024-11-18 09:07 | W.PN.VS ---
Today's Communication / Plan
-
Patient seen and examined at bedside with Dr. Edgar Garcia III, below plan reviewed with attending.
Assessment/Plan
-
Assessment: 68-year-old female POD #1 diagnostic right lower extremity angiogram
Plan:
Can discontinue heparin infusion and reinitiate p.o. Eliquis for anticoagulation
Follow-up placed in discharge instructions
Vascular surgery will sign off please call with questions or concerns
Subjective Data
-
Date of Service: November 18, 2024
Patient seen evaluated bedside, comfortably sitting and eating breakfast, and offers no complaints. Denies nausea, vomiting, fever, and chills.
Objective Data
-
Vital Signs
Temp Pulse Resp BP Pulse Ox
97.7 F 69 18 135/53 99
11/18/24 07:57 11/18/24 07:57 11/18/24 07:57 11/18/24 07:57 11/18/24 07:57
Intake and Output
11/17/24 11/18/24 11/19/24
06:59 06:59 06:59
Intake Total 1112 / 1112 848 / 848
Balance 1112 / 1112 848 / 848
Intake:
Oral fluids 720 / 720
IV fluids (Total) 96 / 96 800 / 800
IV piggybacks 296 / 296 48 / 48
Other:
Number of approximated MODERATE 3 1
amounts of urine
Number of approximated LARGE 1
amounts of urine
Lab Results
11/18/24 07:36
11/18/24 07:36
Calcium 9.2 mg/dl (8.4-10.2) 11/18/24 07:36
Magnesium 2.1 mg/dl (1.6-2.3) 11/13/24 05:22
Total Bilirubin 1.5 mg/dl (0.2-1.3) H 11/12/24 11:
AST 36 U/L (14-36) 11/12/24 11:
ALT 15 U/L (0-35) 11/12/24 11:
Alkaline Phosphatase 87 U/L (38-126) 11/12/24 11:
Total Protein 7.2 g/dl (6.3-8.2) 11/12/24 11:
Albumin 4.0 g/dl (3.5-5.0) 11/12/24 11:
Physical Exam
-
No apparent distress, resting in bed comfortably
No tachycardia
No dyspnea on room air
Abdomen rotund, nondistended, nontender
Right groin puncture site CDI, no evidence of hematoma, all surrounding compartments soft
Right PT +1 palpable and DP +2 palpable
[2024-11-18 11:53] LABS: Glucose - Point of Care 244 mg/dl (70-99)
[2024-11-18] MEDS: NOVOLOG FLEXPEN-LOW RESISTANCE 2 UNITS SC (12:08)
--- NOTE | 2024-11-18 12:34 | W.DCSUMMARY ---
Discharge Summary
Discharge Data
Date of Admission: 11/12/24
Date of Discharge: 11/18/24
-
Pending Results: No
Hospital Course
Patient 68-year-old female with history diabetes mellitus, peripheral vascular disease, CVA, presented to the hospital with right third toe osteomyelitis and foot cellulitis. Patient was given IV antibiotics. ID, podiatry, and vascular surgery
were consulted. Patient underwent angiogram without significant stenosis. She underwent right third toe amputation and local wound care recommended and podiatry will evaluate for possible transmetatarsal amputation in the upcoming weeks as
outpatient. She has remained hemodynamically stable and afebrile. ID vascular and podiatry cleared her for discharge. OR cultures with Klebsiella and Stenotrophomonas. She will be on a course of oral antibiotics as outpatient with close
follow-up of the physicians following her. I was able to prescribe her initial course of antibiotics for the first 3 weeks and she will follow-up with her physicians for the rest of the course of antibiotics. She participated with PT. She will be
discharged in relatively stable condition today.
Discharge duration: 35 minutes
Discharge Plan
-
Patient Disposition: Home with Home Care
Discharge Diagnosis/Procedures: Cellulitis of right foot. Third toe osteomyelitis. Peripheral vascular disease. Diabetes mellitus type 1. Chronic kidney disease
Diet: Low Cholesterol and Diabetic, Carb Controlled
Activity: As tolerated and No strenuous activity
Bathing Restrictions: OK to Shower
Blood Work: Please PCP to order CBC, BMP within 1 week
Stand Alone Forms: Vascular Surg Discharge Instr
Referrals:
Devan Riojas MD [Family Provider] -
Celso Callahan DO [Active] - in two to three weeks
Ricardo Rosales MD [Active] - in one to two weeks
Ema Ponce CRNP [Specified Professional Personl] - 11/26/24 1:00 pm
Prescriptions:
New
levofloxacin 750 mg Tablet
750 mg PO Q48H 14 Days Qty: 7 0RF
Continued
amlodipine 10 MG tablet
10 mg PO DAILY Qty: 30 1RF
atorvastatin 80 MG tablet
80 mg PO QPM Qty: 60 0RF
aspirin 81 MG tablet,chewable
81 mg PO DAILY Qty: 30 0RF
ergocalciferol (vitamin D2) 1,250 mcg (50,000 unit) Capsule
1,250 mcg PO HURD
lisinopril 40 mg Tablet
40 mg PO HS
hydrochlorothiazide 12.5 mg Tablet
12.5 mg PO DAILY
acetaminophen 325 mg Tablet
650 mg PO Q4HPRN PRN (Reason: mild pain/HICKS/temp> 100.4F) Qty: 0 0RF
insulin aspart U-100 100 unit/mL (3 mL) insulin pen
10 unit SC AC
tramadol 50 mg Tablet
50 mg PO HS
insulin glargine [Lantus U-100 Insulin] 100 unit/mL Solution
7 unit SC DAILY
insulin glargine [Lantus U-100 Insulin] 100 unit/mL Solution
6 unit SC QPM
Eliquis 5 mg Tablet
5 mg PO BID 30 Days Qty: 60 0RF
Discontinued
amoxicillin-pot clavulanate 875-125 mg tablet
1 tab PO BID 14 Days Qty: 28 0RF
Rx Instructions:
for 14 days starting 11.10.24
Discharge Orders:
Discharge Patient (As Directed); Ordered 11/18/24
Ordered By: Fito Sommers
Discharge Date and Time
Discharge Date/Time: 11/18/24 15:16
Print Language: IRISH
--- NOTE | 2024-11-18 12:57 | CM ---
MD entered order for discharge.
Antibiotics changed to po
IMM reviewed pt is ready for discharge,
[facility] set up for home by Leti Michael liaison
PLAN Home with [facility]
--- NOTE | 2024-11-18 14:04 | W.PN.ID1 ---
Date of Service
Date of Service: November 18, 2024
Today's Communication
Continue antibiotics. See below�
Assessment / Plan
Right toe osteomyelitis / gangrene; s/p amputation
SSTI right lower extremity
DM type I
HTN
CVA
PAD
HLD
Recommendations:
OR cultures with Klebsiella and stenotrophomonas.
Continue levofloxacin 750 mg p.o. every 48 hours x 2 weeks, then transition to 500 mg p.o. every 48 hours until more definitive surgery performed.
Local care to the wound bed.
Monitor white count and temperature curve.
����������������������������������������������������������
Chief Complaint
-: Other (Osteomyelitis / gangrene right third toe)
Subjective / Review of Systems
Review of Systems: No Fever and No Chills
Vital Signs / Physical Exam
Vital Signs
Vital Signs
Temp Pulse Resp BP Pulse Ox
97.7 F 69 18 135/53 98
11/18/24 07:57 11/18/24 07:57 11/18/24 07:57 11/18/24 07:57 11/18/24 08:00
Physical Exam
Constitutional: No Acute Distress, Comfortable and Non-toxic
Eyes: Sclera Anicteric
Pulmonary: Non Labored
Gastrointestinal: Soft and Non Tender
Extremities: Edema (2+ RLE)
Wound: Other (right foot dressed. )
Neurological: Awake and Alert
Psychological: Calm
Objective Data
Lab Data
Lab Results
11/18/24 07:36
11/18/24 07:36
ESR 22 mm/hour (0-20) H 11/12/24 11:30
APTT 66.0 Sec (23.4-35.0) H 11/18/24 07:36
Estimated Creat Clear 50 ml/min 11/18/24 07:36
Total Bilirubin 1.5 mg/dl (0.2-1.3) H 11/12/24 11:30
AST 36 U/L (14-36) 11/12/24 11:30
ALT 15 U/L (0-35) 11/12/24 11:30
Alkaline Phosphatase 87 U/L (38-126) 11/12/24 11:30
C-Reactive Protein 26.70 mg/L (0.0-10.00) H 11/12/24 11:30
Most recent labs reviewed.
Micro Results:
11/13/24 07:21 Wound Culture - Final
Toe Klebsiella oxytoca
Stenotrophomonas maltophilia
Gram Stain - Final
11/13/24 07:21 Anaerobic Culture - Final
Toe Propionibacterium granulosum
Imaging:
11/12/24 Plain film right foot: New erosive changes of the proximal phalanx of the third toe which are likely represents osteomyelitis noted. Please see full dictation for additional detail. Film personally viewed.
Care Review
Plan reviewed with: Physician (Hospitalist, Railway Track Plant Operator, Vascular surgery)
== END 2024-11-18 15:16 | disposition home health service (06) | DRG 256 ==
LOC: 4 EAST ACU 12:17
PROVIDERS: Nurse Practitioner; Nurse Practitioner Acute Care; Physician Assistant Medical; Surgery Vascular Surgery; ADMITTING PHYSICIAN General Practice; ATTENDING PHYSICIAN Hospitalist; CONSULT PHYSICIAN Internal Medicine Infectious Disease; EMERGENCY PHYSICIAN Emergency Medicine; FAMILY PHYSICIAN Internal Medicine; OTHER PHYSICIAN Surgery Vascular Surgery
PROC: 0Y6T0Z0 Detachment at Right 3rd Toe, Complete, Open Approach (ICD-10-PCS; 2024-11-17)
DX: E10.52 Type 1 diabetes mellitus with diabetic peripheral angiopathy with gangrene (principal); L03.115 Cellulitis of right lower limb; M86.9 Osteomyelitis, unspecified; I12.9 Hypertensive chronic kidney disease with stage 1 through stage 4 chronic kidney disease, or unspecified chronic kidney disease; N18.32 Chronic kidney disease, stage 3b; E78.00 Pure hypercholesterolemia, unspecified; Z79.4 Long term (current) use of insulin; D64.9 Anemia, unspecified; Z79.82 Long term (current) use of aspirin; E10.69 Type 1 diabetes mellitus with other specified complication; Z79.01 Long term (current) use of anticoagulants
CPT/HCPCS: 88305; 36140; 73620; 73630; 75710; 80048; 80053; 82947; 82962; 83036; 83735; 85025; 85027; 85652; 85730; 86140; 87070; 87075; 87076; 87077; 87184; 87186; 87205; 93922; 93926; 93971; 96365; 96375; 97116; 97163; 97167; 99284; C1769; C1894; Q9967

== ENCOUNTER → 2025-01-06 13:26 | Outpatient (REF) | payer MEDICARE, OTHER, SELFPAY | LOC: RAD 13:26 | PROVIDERS: ATTENDING PHYSICIAN Registered Nurse; FAMILY PHYSICIAN Internal Medicine | DX: Z09 Encounter for follow-up examination after completed treatment for conditions other than malignant neoplasm (principal); I77.9 Disorder of arteries and arterioles, unspecified | CPT/HCPCS: 93922; 93926; 93971 ==

== ENCOUNTER 2025-01-12 07:59 | Inpatient (IN) | payer MEDICARE, OTHER, SELFPAY ==
[2025-01-12] VITALS (17 sets, daily range): BP systolic 118–154; BP diastolic 48–64; BMI 29.1; BMI 28.6
[2025-01-12] MEDS: NSS 227 ML IV (08:30)
[2025-01-12 08:45] LABS: Glucose - Point of Care 281 mg/dl (70-99)
[2025-01-12 08:58] LABS: Hematocrit 31.7 % (37.0-47.0); Hemoglobin 10.3 g/dL (12.0-16.0); Mean Corp Hgb Conc. 32.5 g/dL (33.0-37.0); Mean Corpuscular Volume 87.1 fL (81.0-99.0); Platelet Count 204 10^3/uL (130-400); Red Cell Dist. Width 13.7 % (11.5-14.5)
[2025-01-12 09:09] LABS: INR 1.04; PT 13.9 Sec (11.4-14.6)
[2025-01-12 09:10] LABS: APTT 24.2 Sec (23.4-35.0)
[2025-01-12 09:14] LABS: Blood Urea Nitrogen 31 mg/dl (7-17); Calcium 9.2 mg/dl (8.4-10.2); Carbon Dioxide 19 mmol/L (22-30); Chloride 109 mmol/L (98-107); Estimated Creatinine Clearance 54 ml/min; Glucose 315 mg/dl (70-99); Potassium 4.5 mmol/L (3.5-5.1); Sodium 138 mmol/L (135-145); eGFR > 60.00
[2025-01-12] MEDS: NOVOLOG vial 4 UNITS SC ×2 (09:38→11:20)
[2025-01-12 11:30] LABS: Glucose - Point of Care 251 mg/dl (70-99)
--- NOTE | 2025-01-12 13:16 | CON.INTV ---
Consultation
Consultation Request
Date/Time Consultation Requested: 01/12/2025-2:30 PM
Date/Time Consultation Performed: 01/12/2025-3 PM
Requesting Provider: Vascular surgery
Performing Provider: Dr. Haddad
Reason for Consultation: Postop critical care management
Medical History
-
Chief Complaint: PAD
History of Present Illness:
69-year-old female with a history of hypertension, diabetes, CVA, chronic kidney disease and PAD, right toe amputation wound not totally healed with previous endovascular bypass of the anterior tibial artery to lower extremity vein and
thrombolysis/balloon angioplasty in October 2024 underwent revascularization and truck spotter consulted for postoperative critical care management 01/12/2025.. Patient was seen in the medical intensive care unit postoperatively. She denies any
shortness of breath, chest pain, chest tightness, wheezing, productive cough, abdominal pain, nausea, leg swelling or focal weakness.
Past Medical History
Past Medical History: None (Hypertension. Hyperlipidemia. Type 1 diabetes. History of CVA 2017. Chronic kidney disease. 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 PAD.)
Social History
Tobacco: Non-smoker
Alcohol: None
Drug: None
Living: With Family
Occupational Exposures: No known asbestos exposure
Environmental Exposures: No known tuberculosis exposure
Family History
Family History: Reviewed & Not Pertinent (Diabetes)
Allergies / Home Medications
Allergies
Allergy/AdvReac Type Severity Reaction Status Date / Time
hydromorphone (From Dilaudid) Allergy Tongue Verified 01/09/25 13:40
Swelling
Home Medications
�Medication �Instructions �Recorded �Confirmed �Last Taken �Type
amlodipine 10 mg tablet 10 mg PO DAILY ##30 07/02/18 01/12/25 01/12/25 06:00 Rx
atorvastatin 80 mg tablet 80 mg PO QPM ##60 07/06/18 01/12/25 01/11/25 18:00 Rx
ergocalciferol (vitamin D2) 1,250 1,250 mcg PO HURD Supplement 09/30/24 01/12/25 01/04/25 History
mcg (50,000 unit) capsule
hydrochlorothiazide 12.5 mg tablet 12.5 mg PO DAILY Fluid 09/30/24 01/12/25 01/11/25 07:00 History
Retention/Swelling
lisinopril 40 mg tablet 40 mg PO QPM Blood Pressure 09/30/24 01/12/25 01/11/25 18:00 History
insulin aspart U-100 100 unit/mL 10 unit SC AC Diabetes 10/16/24 01/12/25 01/11/25 18:00 History
(3 mL) subcutaneous pen
insulin glargine 100 unit/mL 6 unit SC QPM Diabetes 10/16/24 01/12/25 01/11/25 18:00 History
subcutaneous solution (Lantus
U-100 Insulin)
insulin glargine 100 unit/mL 7 unit SC DAILY Diabetes 10/16/24 01/12/25 01/11/25 07:00 History
subcutaneous solution (Lantus
U-100 Insulin)
apixaban 5 mg tablet (Eliquis) 5 mg PO BID 1 month #60 tabs 10/21/24 01/12/25 01/10/25 18:00 Rx
ciprofloxacin HCl 500 mg tablet 500 mg PO Q48H 01/09/25 01/12/25 01/12/25 06:00 History
aspirin 81 mg tablet,delayed 81 mg PO DAILY 01/12/25 01/12/25 01/12/25 06:00 History
release
Review of Systems
-
Unable to Obtain full review of systems at this time due to: Other (Per HPI)
Vitals / Labs / Diagnostic Testing
Vital Signs
Temp Pulse Resp BP Pulse Ox
98.1 F 84 22 154/58 100
01/12/25 08:15 01/12/25 10:30 01/12/25 10:30 01/12/25 08:49 01/12/25 10:30
Lab Data
01/12/25 08:49
01/12/25 08:49
Laboratory Results
01/12/25
08:49
PT 13.9
INR 1.04
APTT 24.2
Diagnostic Testing:
Physical Exam
-
Exam:
Well-nourished and well-developed in no apparent distress
HEENT-atraumatic, normocephalic
Neck-supple, no JVD, no bruit
Heart-regular rate and rhythm-no murmurs, rubs or gallops
Chest-clear to auscultation, no wheezes, crackles
Back-no tenderness
Abdomen-soft, nontender, nondistended, no hepatosplenomegaly
Extremities-no cyanosis, clubbing, edema and good peripheral pulses
Integument-intact, no rashes, lesions or ecchymosis
Neurology-alert and oriented, nonfocal motor and sensory exam
Assessment
-
69-year-old female with a history of hypertension, diabetes, CVA, chronic kidney disease and PAD, right toe amputation wound not totally healed with previous endovascular bypass of the anterior tibial artery to lower extremity vein and
thrombolysis/balloon angioplasty in October 2024 underwent revascularization and truck spotter consulted for postoperative critical care management 01/12/2025.
Severe PAD
Status post RLE arteriogram, pharmacomechanical lysis of limb flow circuit, CLUB CAR ATTENDANT of venous outflow and proximal AT-Dr. Garcia 01/12/2025
Mild normocytic anemia-hemoglobin 10.3
Hyperglycemia
Conditions present prior to admission:
Hypertension.
Hyperlipidemia.
Type 1 diabetes.
History of CVA 2017.
Chronic kidney disease.
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
PAD.
Plan
Postoperative surgical intensive care unit monitoring
Supplemental oxygen as needed
Incentive spirometry
Aspiration precautions
Neuro and vascular checks per protocol
Monitor blood pressure/perfusion pressures and pulses closely
Vascular surgery following-correspondence and operative notes reviewed
Monitor blood sugar
Insulin supplementation as needed-insulin drip if needed/glycemic protocol
Follow hemoglobin
Transfuse if needed
DVT prophylaxis
Early nutrition
Early mobilization
Critical care statement: A total of 55 minutes of critical care time was provided for this patient today. This includes management of unstable vital signs, evaluation of the patient at bedside, reviewing the patient's pertinent medical records
including radiographs, microbiology, laboratory evaluations, and discussion with primary team, consultants, pharmacy, nutrition, physical therapy, case management, charge nurse, critical care nursing, and respiratory therapy.
Diagnostic data:
Chest x-ray 07/04/2018-NAD
Echocardiogram 07/03/2018-EF 70-75%,
Data Reviewed
-
EKG: Report reviewed by me
Radiology: Report reviewed by me
Medical Tests (Nuc Med, Echo etc): Report reviewed by me
Labs: Labs reviewed by me
Old Records: Reviewed
Critical Care Time (in minutes): 55
--- NOTE | 2025-01-12 13:34 | W.SUR.POST ---
Surgical Immediate Post Op
Note
Pre Op Diagnosis: PAD
Post Op Diagnosis: PAD
Procedure Performed: RLE arteriogram, pharmacomechanical lysis of limflow circuit, ANESTHESIOLOGY TECH of venous outflow and proximal AT
Primary Surgeon: Jose
Secondary Surgeons: Lalit PGY5
Anesthesia: Local and sedation
Estimated Blood Loss: <2cc
Fluids: See anesthesia flow sheet
Drains/Shunts: none
Specimens/Cultures: none
Doppler/Duplex/Angio (Y/N): Y
Complications: none
Operative Findings: +doppler signal
[2025-01-12 13:44] LABS: Glucose - Point of Care 163 mg/dl (70-99)
[2025-01-12 14:09] LABS: Glucose - Point of Care 143 mg/dl (70-99)
[2025-01-12 15:16] LABS: Magnesium 1.9 mg/dl (1.6-2.3)
[2025-01-12] MEDS: NSS 1000 IV ×2 (15:39→21:24)
[2025-01-12 15:50] LABS: Glucose - Point of Care 171 mg/dl (70-99)
--- NOTE | 2025-01-12 16:21 | PTCARENOTE ---
patient received from PACU@1530. right groin dressing dry and intact, area surrounding with slight ecchymosis, soft. no signs hematoma. Doppler distal pulses. alert and oriented, denies discomfort. monitor nsr. abdomen soft. patient unable to void,
bladder scan and straight cath per orders. crystalizer at bedside. assessments per work list. family at bedside. updated. call silveira in hand
[2025-01-12] MEDS: NOVOLOG FLEXPEN-HIGH RESISTANCE 4 UNITS SC (17:09)
[2025-01-12] MEDS: LANTUS 0.06 UNITS SC (17:10)
[2025-01-12 17:13] LABS: Glucose - Point of Care 204 mg/dl (70-99)
[2025-01-12] MEDS: LIPITOR 80 MG PO (18:03)
[2025-01-12] MEDS: ZESTRIL 40 MG PO (18:04)
--- NOTE | 2025-01-12 18:54 | OR.RPT ---
Operative Report
Operative Report
Date of Operation: 01/12/2025
Pre Op Diagnosis:
1. [place] artery atherosclerosis with nonhealing right toe amputation site
2. Thrombosed LimFlow/TADV circuit, right lower extremity
3. Diabetes with peripheral artery disease
Post Op Diagnosis:
1. [place] artery atherosclerosis with nonhealing right toe amputation site
2. Thrombosed LimFlow/TADV circuit, right lower extremity
3. Diabetes with peripheral artery disease
Procedure:
1.) Pharmacomechanical thrombolysis of LimFlow/TADV circuit using AngioJet ([employer] with power pulse)
2.) Balloon angioplasty of LimFlow/TADV stents (5 mm x 200 mm angioplasty balloon; 3.5 mm x 100 mm angioplasty balloon)
3.) Balloon angioplasty of proximal anterior tibial artery stenosis (3.5 mm x 100 mm angioplasty balloon)
4.) Cutting Balloon angioplasty of venous outflow stenosis, right foot (5 mm x 20 mm [employer] Cutting Balloon)
5.) Balloon angioplasty of venous outflow, right foot (3.5 mm x 100 mm angioplasty balloon; 4 mm angioplasty balloon)
6.) Diagnostic right lower extremity arteriogram
7.) Ultrasound-Guided percutaneous antegrade access to the right proximal superficial femoral artery
Surgeon: Edgar Garcia III, MD
Ramp Supervisor: Ricardo Cohn MD, PGY5
Anesthesia: Sedation with local
Fluoroscopy:
33.8 min
54 mGy
9.96 gy.cm2
Complications: None
Estimated Blood Loss: Less than 20 cc
History and Indications for Procedure: 69-year-old female with diabetes and extensive tibial and small vessel occlusive disease. She had undergone transcatheter arterialization of the deep veins in the right lower extremity for limb preservation.
She had a right toe amputation that had been healing nicely but wound healing stalled recently and her surveillance imaging revealed thrombosis of the LimFlow/TADV circuit. I recommended we take her back to reopen the LimFlow/TADV circuit.
Procedure in Detail: Ledy Aughtmon was correctly identified and placed supine on the operating table. After adequate induction of anesthesia the bilateral groins were prepped and draped in the usual sterile fashion. A timeout was performed with
the nursing and anesthesia staff confirming the patient's identity as well as the nature and laterality of the procedure.
The right common femoral artery was identified under ultrasound guidance. The artery was patent. The superior and inferior aspects of the femoral head were identified with radiographic guidance and marked at the skin level. The proposed puncture
site was infiltrated with local anesthesia. Under ultrasound guidance we accessed the right common femoral artery at the superficial femoral artery origin with a micropuncture needle and upsized to a 5Fr sheath over a Bentson wire.
A diagnostic right lower extremity arteriogram was then performed which demonstrated the following:
RIGHT LOWER EXTREMITY:
Superficial femoral artery: Patent with no stenosis identified
Popliteal artery: Patent with no stenosis identified
Anterior tibial artery: Patent proximally with high-grade stenosis at the origin. Occluded LimFlow/TADV stents
Tibioperoneal trunk: Patent no stenosis
Peroneal artery: Patent
Posterior tibial artery: Patent. Significant small vessel occlusive disease in the plantar distribution was identified
ENDOVASCULAR INTERVENTION: Systemic heparin was administered. Exchanged out for a 6 Fr 45 cm sheath over a Bentson wire and positioned the radiopaque tip in the popliteal artery. Selected the anterior tibial artery under roadmap guidance with
Quickcross catheter and glidewire. The occluded stents were crossed easily. The wire and catheter were advanced into the venous outflow in the foot and subtraction angio confirmed proper position. Significant thrombus burden was identified in the
venous outflow beyond the LimFlow/TADV stents with some flow identified distally. 4 mg of tPA was injected into the venous outflow in the foot through the quick cross catheter.
The Bentson wire was positioned in the venous outflow in the foot. I made the decision to proceed with pharmacomechanical thrombolysis. I then brought into position the [employer] AngioJet catheter. Using the power pulse setting we advanced the
AngioJet catheter through the occluded LimFlow/TADV stents and into the venous outflow in the foot. 8 mg of tPA was power pulsed into the LimFlow/TADV stents and proximal venous outflow in the foot. The catheter was then removed over the wire and
waited 10 minutes for the tPA to dwell. I then proceeded with passing the Solent catheter through the occluded stents and into the proximal venous outflow in the foot. Multiple passes were made. Subsequent arteriograms demonstrated residual thrombus
in the distal aspect of the stents near the ankle so the Angiojet catheter was passed across this area several times again.
Following this I exchanged the wire out for a 0.014 Glidewire advantage. I was able to advance this through the pedal loop in the foot and back up through the great saphenous vein. Over the wire I then brought into position a 3.5 mm x 100 mm
angioplasty balloon. I used this to perform balloon angioplasty on the venous outflow and pedal loop in the foot. Multiple inflations were performed at nominal pressure holding each for 3 minutes. I used the same angioplasty balloon to treat the
proximal anterior tibial artery stenosis. The balloon was inflated to nominal pressure and held in place for 2-minute inflation at the proximal anterior tibial artery.
Following this there was still poor flow through the LimFlow/TADV stents and the arteriogram indicated continued venous outflow issues. The proximal anterior tibial artery was patent with no significant residual stenosis identified. Over the 0.014
wire I brought into position a 4 mm angioplasty balloon. This was positioned in the desired location in the venous outflow of the foot and inflated to nominal pressure. The balloon profiled nicely. There was an area of residual stenosis just
beyond the end of the stent at the ankle. I then brought into position a 5 mm x 20 mm [employer] cutting balloon. This was positioned in the desired location under roadmap guidance and inflated to nominal pressure. The balloon was held in
place for 3 minutes before slowly deflating and removing over the wire.
Subsequent arteriogram again demonstrated limited flow through the LimFlow/TADV stents. Additional catheter-based arteriograms of the venous outflow in the foot demonstrated significant residual thrombus burden that could not be cleared with the
AngioJet catheter. Additional balloon angioplasty was performed on the venous outflow in the hopes of macerating the residual thrombus but this was unsuccessful. At this point I abandoned any further endovascular intervention
The sheath tip was pulled back into the proximal superficial femoral artery. Protamine was administered. The sheath was pulled and direct manual pressure was held over the puncture site until hemostasis was achieved. A sterile dressing was
applied.
The patient tolerated the procedure well and was taken to the recovery area in stable condition.
Attestation: I was present and responsible for the entire procedure.
Signed:
Edgar Garcia III, MD
Vascular Surgery
[facility]
[2025-01-12] MEDS: ULTRAM 50 MG PO (19:01)
--- NOTE | 2025-01-12 20:00 | PTCARENOTE ---
supervisor slate splitting, pt aaox3, R foot pain improved after prn tramadol dose, NV checks WNL- assessments per work list. SR HR 70-80s. RA Sat 97%. LH IV WNL- IVF infusing as ordered. POC discussed, call silveira with pt.
[2025-01-12] MEDS: ELIQUIS 5 MG PO (20:12)
[2025-01-12 21:37] LABS: Glucose - Point of Care 481 mg/dl (70-99)
[2025-01-12 22:06] LABS: Glucose 467 mg/dl (70-99)
--- NOTE | 2025-01-12 22:06 | PTCARENOTE ---
pt HS BG read High, resulted in computer at 481, Stat serum glucose sent- result 467. BDoughertyNP aware of both results and to place orders for insulin.
[2025-01-12] MEDS: NOVOLOG FLEXPEN 14 UNITS SC (22:31)
[2025-01-13] VITALS (7 sets, daily range): BP systolic 109–125; BP diastolic 44–96; BMI 28.5
--- NOTE | 2025-01-13 01:30 | PTCARENOTE ---
BG recheck 340, BDoughertyNP aware, additional insulin ordered per SEP. no further changes in assessment.
[2025-01-13 01:41] LABS: Glucose - Point of Care 340 mg/dl (70-99)
[2025-01-13] MEDS: NOVOLOG FLEXPEN 10 UNITS SC (01:50)
[2025-01-13] MEDS: ULTRAM 50 MG PO (03:04)
[2025-01-13 05:21] LABS: Glucose - Point of Care 178 mg/dl (70-99)
--- NOTE | 2025-01-13 05:30 | PTCARENOTE ---
pt voided in bathroom, min assist back to bed with walker for support, no changes in assessment.
[2025-01-13 05:41] LABS: Hematocrit 31.8 % (37.0-47.0); Hemoglobin 10.5 g/dL (12.0-16.0); Mean Corp Hgb Conc. 33.0 g/dL (33.0-37.0); Mean Corpuscular Volume 86.2 fL (81.0-99.0); Platelet Count 188 10^3/uL (130-400); Red Cell Dist. Width 13.3 % (11.5-14.5)
[2025-01-13 05:56] LABS: INR 1.19; PT 15.4 Sec (11.4-14.6)
[2025-01-13 05:57] LABS: APTT 28.2 Sec (23.4-35.0)
[2025-01-13 06:01] LABS: Blood Urea Nitrogen 30 mg/dl (7-17); Calcium 9.0 mg/dl (8.4-10.2); Carbon Dioxide 19 mmol/L (22-30); Chloride 114 mmol/L (98-107); Estimated Creatinine Clearance 53 ml/min; Glucose 178 mg/dl (70-99); Potassium 4.6 mmol/L (3.5-5.1); Sodium 138 mmol/L (135-145); eGFR > 60.00
[2025-01-13 07:31] LABS: Glucose - Point of Care 249 mg/dl (70-99)
--- NOTE | 2025-01-13 07:37 | W.PN.INTV ---
Today's Communication / Plan
Recommendations
Neurovascularly intact
Increase activity
Stable for transfer out of ICU-call pulmonary if respiratory issues arise
Assessment
-
69-year-old female with a history of hypertension, diabetes, CVA, chronic kidney disease and PAD, right toe amputation wound not totally healed with previous endovascular bypass of the anterior tibial artery to lower extremity vein and
thrombolysis/balloon angioplasty in October 2024 underwent revascularization and contract paralegal consulted for postoperative critical care management 01/12/2025.
Severe PAD
Status post RLE arteriogram, pharmacomechanical lysis of limb flow circuit, [employer] of venous outflow and proximal AT-Dr. Garcia 01/12/2025
Mild normocytic anemia-hemoglobin 10.3
Hyperglycemia
Conditions present prior to admission:
Hypertension.
Hyperlipidemia.
Type 1 diabetes.
History of CVA 2017.
Chronic kidney disease.
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
PAD.
Plan
Hemodynamically and neurovascularly intact
Wean supplemental oxygen
Incentive spirometry encourage
Aspiration precautions
Monitor hemoglobin
Transfuse if needed
Monitor blood sugars
Insulin supplementation if needed
Neuro and vascular checks per protocol also continue
Vascular surgery closely
DVT prophylaxis recommended
Nutrition
Increase activity/physical therapy
Patient can be transferred out of ICU-call pulmonary if respiratory issues arise
Reviewed the patient�s pertinent medical records including radiographs, microbiology, laboratory evaluations, and��discussion with primary team, consultants, pharmacy, nutrition, physical therapy, case management, charge nurse, critical care
nursing, and respiratory therapy.
Diagnostic data:
Chest x-ray 07/04/2018-NAD
Echocardiogram 07/03/2018-EF 70-75%,
Subjective Dataa
Subjective Data
Date of Service:
Date of Service: January 13, 2025
Chief Complaint: Multiple Slide Operator Follow Up and Pulmonary Follow Up
Subjective:
Did well overnight, no complaints of shortness of breath, chest pain or abdominal pain, good pulses
Review of Systems
General: Other (Per HPI)
Objective Data
Data Reviewed
Vital Signs / I&O / Oxygen:
Vital Signs
Temp Pulse Resp BP Pulse Ox
97.7 F 58 15 112/44 97
01/13/25 07:21 01/13/25 06:00 01/13/25 06:00 01/13/25 06:00 01/13/25 06:00
Intake and Output
01/12/25 01/13/25 01/14/25
06:59 06:59 06:59
Intake Total 2547 / 2547
Output Total 1100 / 1100
Balance 1447 / 1447
SaO2 97
Physical Exam
General: Respiratory Distress (n) and Comfortable
HEENT: Normocephalic, Anicteric and Moist Mucous Membranes
Cardiovascular: Regular Rhythm
Respiratory: Non-Labored Respirations and Accessory Resp Muscle Use (n)
GI: Soft and Non Distended
Neurology: Awake, Alert and No Motor Deficits
Skin: Warm, Good Color, Cyanosis (n) and Jaundice (n)
Labs/Micro/Reports
Lab Data
01/13/25 05:18
01/13/25 05:18
Laboratory Results
01/12/25 01/13/25
08:49 05:18
PT 13.9 15.4 H
INR 1.04 1.19
APTT 24.2 28.2
[2025-01-13 07:43] LABS: Hepatitis C Antibody Negative (Negative)
--- NOTE | 2025-01-13 07:47 | W.PN.VS ---
Today's Communication / Plan
-
Patient seen and examined at bedside with Dr. Edgar Garcia III below plan reviewed with attending.
Assessment/Plan
-
Assessment: 69 year old female POD #1P harmacomechanical thrombolysis of LimFlow/TADV circuit using AngioJet ([employer] with power pulse), balloon angioplasty of LimFlow/TADV stents (5 mm x 200 mm angioplasty balloon; 3.5 mm x 100 mm angioplasty
balloon), balloon angioplasty of proximal anterior tibial artery stenosis (3.5 mm x 100 mm angioplasty balloon), cutting Balloon angioplasty of venous outflow stenosis, right foot (5 mm x 20 mm [employer] Cutting Balloon), balloon angioplasty
of venous outflow, right foot (3.5 mm x 100 mm angioplasty balloon; 4 mm angioplasty balloon), diagnostic right lower extremity arteriogram
Plan:
OOB to chair with progression to ambulation as tolerated
May resume home anticoagulation of Eliquis 5mg PO BID
Discharge to home pending ambulation
Subjective Data
-
Date of Service: January 13, 2025
Patient seen and examined at bedside, offers no complaints. Denies pain at right groin. Eager for next steps for discharge.
Objective Data
-
Vital Signs
Temp Pulse Resp BP Pulse Ox
97.7 F 58 15 112/44 97
01/13/25 07:21 01/13/25 06:00 01/13/25 06:00 01/13/25 06:00 01/13/25 06:00
Intake and Output
01/12/25 01/13/25 01/14/25
06:59 06:59 06:59
Intake Total 2547 / 2547
Output Total 1100 / 1100
Balance 1447 / 1447
Intake:
Oral fluids 960 / 960
IV fluids (Total) 1587 / 1587
NSS 427 / 427
Nss 1,000 ml @ 80 mls/hr IV . 1160 / 1160
[id number] [facility] Rx#:[id number]
Output:
Urine, Voided 300 / 300
Straight cath output 800 / 800
Other:
Number of approximated LARGE 1
amounts of urine
Lab Results
01/13/25 05:18
01/13/25 05:18
Calcium 9.0 mg/dl (8.4-10.2) 01/13/25 05:18
Phosphorus 3.5 mg/dl (2.5-4.5) 01/12/25 08:49
Magnesium 1.9 mg/dl (1.6-2.3) 01/12/25 08:49
Physical Exam
-
No apparent distress, resting in bed comfortably
No tachycardia
No dyspnea on room air
Abdomen rotund, nondistended, nontender
Right groin puncture site CDI, no evidence of hematoma, all surrounding compartments soft
Right PT and Dp doppler signal
[2025-01-13] MEDS: ELIQUIS 5 MG PO (07:48)
[2025-01-13] MEDS: ORETIC 12.5 MG PO (07:49)
[2025-01-13] MEDS: NORVASC 10 MG PO (07:49)
[2025-01-13] MEDS: NOVOLOG FLEXPEN-HIGH RESISTANCE 4 UNITS SC (07:49)
[2025-01-13] MEDS: ASPIR LOW (ENTERIC COATED) 81 MG PO (07:49)
[2025-01-13] MEDS: LANTUS 0.07 UNITS SC (07:50)
--- NOTE | 2025-01-13 09:31 | PTCARENOTE ---
Discharge orders per vascular surgery. Discharge packet completed w patient and pt. verbally expressed understanding. clinical research monitor and IV removed. Pt. d/c'd via wheelchair/staff escort to home w family. No further needs from this RN.
--- NOTE | 2025-01-13 09:56 | CM ---
Patient has been medically cleared for discharge to home with no additional skilled services. Patient arranged for transport home.
== END 2025-01-13 09:17 | disposition home or self-care (01) | DRG 271 ==
LOC: ICU 07:59
PROVIDERS: Nurse Practitioner Acute Care; Nurse Practitioner Primary Care; ADMITTING PHYSICIAN Surgery Vascular Surgery; CONSULT PHYSICIAN Internal Medicine Critical Care Medicine; PRIMARYCARE PHYSICIAN Internal Medicine
PROC: B41F1ZZ Fluoroscopy of Right Lower Extremity Arteries using Low Osmolar Contrast (ICD-10-PCS; 2025-01-12)
PROC: 047R3ZZ Dilation of Right Posterior Tibial Artery, Percutaneous Approach (ICD-10-PCS; 2025-01-12)
PROC: 3E05317 Introduction of Other Thrombolytic into Peripheral Artery, Percutaneous Approach (ICD-10-PCS; 2025-01-12)
PROC: 06CY3ZZ Extirpation of Matter from Lower Vein, Percutaneous Approach (ICD-10-PCS; 2025-01-12)
PROC: 3E03317 Introduction of Other Thrombolytic into Peripheral Vein, Percutaneous Approach (ICD-10-PCS; 2025-01-12)
PROC: 067Y3ZZ Dilation of Lower Vein, Percutaneous Approach (ICD-10-PCS; 2025-01-12)
DX: T82.868A Thrombosis due to vascular prosthetic devices, implants and grafts, initial encounter (principal); I82.491 Acute embolism and thrombosis of other specified deep vein of right lower extremity; E10.51 Type 1 diabetes mellitus with diabetic peripheral angiopathy without gangrene; T87.89 Other complications of amputation stump; I70.201 Unspecified atherosclerosis of native arteries of extremities, right leg; I12.9 Hypertensive chronic kidney disease with stage 1 through stage 4 chronic kidney disease, or unspecified chronic kidney disease; N18.9 Chronic kidney disease, unspecified; E10.22 Type 1 diabetes mellitus with diabetic chronic kidney disease; E78.5 Hyperlipidemia, unspecified; D63.1 Anemia in chronic kidney disease; E10.65 Type 1 diabetes mellitus with hyperglycemia; Y83.1 Surgical operation with implant of artificial internal device as the cause of abnormal reaction of the patient, or of later complication, without mention of misadventure at the time of the procedure; Y83.5 Amputation of limb(s) as the cause of abnormal reaction of the patient, or of later complication, without mention of misadventure at the time of the procedure; Z79.01 Long term (current) use of anticoagulants; Z79.4 Long term (current) use of insulin; Z79.82 Long term (current) use of aspirin; Z79.899 Other long term (current) drug therapy; Z86.73 Personal history of transient ischemic attack (TIA), and cerebral infarction without residual deficits; Z89.421 Acquired absence of other right toe(s)
CPT/HCPCS: 37186; 37228; 37246; 37248; 71045; 75710; 80048; 82947; 82962; 83735; 84100; 85027; 85610; 85730; 86803; 93005; C1725; C1757; C1769; C1894; J2997; Q9967

== ENCOUNTER → 2025-03-10 12:49 | Outpatient (REF) | payer MEDICARE, OTHER, SELFPAY | LOC: RAD 12:49 | PROVIDERS: ATTENDING PHYSICIAN Physician Assistant | DX: Z09 Encounter for follow-up examination after completed treatment for conditions other than malignant neoplasm (principal); I73.9 Peripheral vascular disease, unspecified | CPT/HCPCS: 93922; 93926; 93971 ==

== ENCOUNTER → 2025-06-16 12:05 | Outpatient (REF) | payer MEDICARE, OTHER, SELFPAY | LOC: RAD 12:05 | PROVIDERS: ATTENDING PHYSICIAN Internal Medicine Infectious Disease; FAMILY PHYSICIAN Internal Medicine | DX: M86.171 Other acute osteomyelitis, right ankle and foot (principal) | CPT/HCPCS: 73630 ==

== ENCOUNTER → 2025-06-30 12:56 | Outpatient (REF) | payer MEDICARE, OTHER, SELFPAY | LOC: RAD 12:56 | PROVIDERS: ATTENDING PHYSICIAN Surgery Vascular Surgery; FAMILY PHYSICIAN Internal Medicine | DX: I73.9 Peripheral vascular disease, unspecified (principal) | CPT/HCPCS: 93922 ==